=== PATIENT | female | born 1960 | race American Indian/Alaskan Native ===

== ENCOUNTER 2020-05-25 10:34 | Outpatient (REF) | payer OTHER, SELFPAY ==
[2020-05-25 12:33] LABS: MANUAL DIFF FLAG NO
[2020-05-25 12:41] LABS: Basophils Percent Auto 0.5 % (0-2); Hemoglobin 13.6 g/dl (12.0-16.0); Imm Gran Abs Auto 0.01 X10*3/uL (0.00-0.03); Imm Gran Pct Auto 0.3 % (0.0-0.4); Lymphocytes Absolute Auto 0.9 X10*3/uL (1.2-4.9); Lymphocytes Percent Auto 22.2 % (20-40); Mean Corpuscular HGB Conc 31.6 g/dl (31.0-35.0); Mean Corpuscular Hemoglobin 29.4 pg (27.0-33.0); Mean Corpuscular Volume 92.9 fL (80-98); Mean Platelet Volume 11.3 fL (9.4-12.3); Monocytes Absolute Auto 0.3 X10*3/uL (0.1-1.2); Monocytes Percent Auto 7.5 % (2-11); Neutrophils Absolute Auto 2.7 X10*3/uL (2.0-8.3); Neutrophils Percent Auto 68.5 % (45-73); Platelet Count 209 X10*3/uL (160-400); Red Blood Count 4.63 X10*6/uL (4.20-5.50); White Blood Count 3.9 X10*3/uL (4.8-10.8)
[2020-05-25 13:16] LABS: Anion Gap 16 (12-20); Blood Urea Nitrogen 10 mg/dL (9-16); Calcium 9.4 mg/dL (8.4-10.2); Carbon Dioxide 26 mmol/L (22-29); Chloride 102 mmol/L (96-108); Estimated Glomerular Filt Rate > 60; Glucose Random 138 mg/dL (60-115); Iron 90 mcg/dL (30-160); Percent Iron Saturation 27 % (15-50); Potassium 3.9 mmol/l (3.3-5.1); Sodium 140 mmol/L (135-145); Total Iron Binding Capacity 328 mcg/dL (228-428); Unsaturated Iron Binding 238 ug/dL
== END 2020-05-25 10:35 | disposition home or self-care (01) ==
LOC: HO.LAB 10:34
PROVIDERS: PCP Internal Medicine; Visit Provider Physician Assistant
DX: R53.83 Other fatigue (principal); E11.9 Type 2 diabetes mellitus without complications
CPT/HCPCS: 36415; 80048; 83540; 84443; 85025

== ENCOUNTER → 2020-07-13 13:19 | Outpatient (BNVA) | payer OTHER, SELFPAY | PROVIDERS: PCP Internal Medicine; Referring Provider Internal Medicine; Visit Provider Nurse Practitioner Gerontology | DX: Z13.89 Encounter for screening for other disorder (principal) | CPT/HCPCS: Q3014 ==

== ENCOUNTER 2020-09-29 09:34 | Outpatient (REF) | payer OTHER, SELFPAY ==
[2020-09-29 10:18] LABS: MANUAL DIFF FLAG NO
[2020-09-29 10:21] LABS: Basophils Percent Auto 0.7 % (0-2); Eosinophils Percent Auto 0.9 % (0-4); Hematocrit 43.3 % (37-47); Hemoglobin 13.8 g/dl (12.0-16.0); Imm Gran Abs Auto 0.01 X10*3/uL (0.00-0.03); Imm Gran Pct Auto 0.2 % (0.0-0.4); Lymphocytes Absolute Auto 1.3 X10*3/uL (1.2-4.9); Lymphocytes Percent Auto 29.8 % (20-40); Mean Corpuscular HGB Conc 31.9 g/dl (31.0-35.0); Mean Corpuscular Hemoglobin 28.9 pg (27.0-33.0); Mean Corpuscular Volume 90.8 fL (80-98); Mean Platelet Volume 10.8 fL (9.4-12.3); Monocytes Absolute Auto 0.3 X10*3/uL (0.1-1.2); Monocytes Percent Auto 7.2 % (2-11); Neutrophils Absolute Auto 2.7 X10*3/uL (2.0-8.3); Neutrophils Percent Auto 61.2 % (45-73); Platelet Count 202 X10*3/uL (160-400); Red Blood Count 4.77 X10*6/uL (4.20-5.50); Red Cell Distribution Width 13.2 % (11.0-16.0); White Blood Count 4.5 X10*3/uL (4.8-10.8)
[2020-09-29 10:43] LABS: Estimated Average Glucose 177 mg/dL; Hemoglobin A1c % 7.8 %
[2020-09-29 10:59] LABS: Alanine Aminotransferase 25 U/L (0-31); Albumin Level 4.5 g/dL (3.5-5.0); Alkaline Phosphatase 91 U/L (39-117); Anion Gap 12 (12-20); Aspartate Amino Transferase 27 U/L (5-31); Bilirubin Total 0.6 mg/dL (0.0-1.0); Blood Urea Nitrogen 12 mg/dL (9-16); Calcium 9.5 mg/dL (8.4-10.2); Carbon Dioxide 29 mmol/L (22-29); Chloride 103 mmol/L (96-108); Cholesterol 179 mg/dL; Estimated Glomerular Filt Rate > 60; Glucose Fasting 149 mg/dL (60-99); HDL Cholesterol 59 mg/dL; LDL Cholesterol Calculated 93 mg/dl; Potassium 3.7 mmol/L (3.3-5.1); Sodium 140 mmol/L (135-145); Total Protein 7.9 g/dL (6.5-8.0); Triglycerides 136 mg/dL
[2020-09-29 11:02] LABS: Creatinine Urine 85.36 mg/dL; Microalbum/Creatinine Ratio Ur 43.3 ug/mg cr
[2020-09-29 11:21] LABS: Vitamin D 25-OH Total 41.4 ng/mL (>30)
== END 2020-09-29 09:35 | disposition home or self-care (01) ==
LOC: HO.LAB 09:34
PROVIDERS: Nurse Practitioner Family; Absent Provider Nurse Practitioner Gerontology; PCP Internal Medicine; Visit Provider Internal Medicine
DX: K58.0 Irritable bowel syndrome with diarrhea (principal); K21.9 Gastro-esophageal reflux disease without esophagitis; K31.84 Gastroparesis; Z79.899 Other long term (current) drug therapy; E78.5 Hyperlipidemia, unspecified; E11.42 Type 2 diabetes mellitus with diabetic polyneuropathy; E55.9 Vitamin D deficiency, unspecified; Z79.4 Long term (current) use of insulin
CPT/HCPCS: 36415; 80053; 80061; 82043; 82306; 83036; 85025; Q3014

== ENCOUNTER → 2020-12-02 12:47 | Outpatient (BNVA) | payer OTHER, SELFPAY | PROVIDERS: PCP Internal Medicine; Visit Provider Nurse Practitioner Gerontology | DX: E11.42 Type 2 diabetes mellitus with diabetic polyneuropathy (principal); E11.29 Type 2 diabetes mellitus with other diabetic kidney complication; R80.9 Proteinuria, unspecified; E78.5 Hyperlipidemia, unspecified; I10 Essential (primary) hypertension; E55.9 Vitamin D deficiency, unspecified; Z79.4 Long term (current) use of insulin | CPT/HCPCS: 82947; 99212 ==

== ENCOUNTER 2020-12-20 11:25 | Outpatient (REF) | payer OTHER, SELFPAY ==
[2020-12-20 13:45] LABS: Free T4 (Free Thyroxine) 0.92 ng/dL (0.71-1.85); Thyroid Stimulating Hormone 2.04 uIU/mL (0.32-4.0)
== END 2020-12-20 11:26 | disposition home or self-care (01) ==
LOC: HO.LAB 11:25
PROVIDERS: PCP Internal Medicine; Visit Provider Nurse Practitioner Gerontology
DX: E11.42 Type 2 diabetes mellitus with diabetic polyneuropathy (principal); Z79.4 Long term (current) use of insulin
CPT/HCPCS: 36415; 84439; 84443

== ENCOUNTER → 2021-03-29 14:42 | Outpatient (BNVA) | payer OTHER, SELFPAY | PROVIDERS: PCP Internal Medicine; Visit Provider Nurse Practitioner | CPT/HCPCS: Q3014 ==

== ENCOUNTER → 2021-05-06 13:00 | Outpatient (BNVA) | payer OTHER, SELFPAY | PROVIDERS: PCP Internal Medicine; Visit Provider Nurse Practitioner Gerontology | DX: E11.42 Type 2 diabetes mellitus with diabetic polyneuropathy (principal); E11.29 Type 2 diabetes mellitus with other diabetic kidney complication; E78.5 Hyperlipidemia, unspecified; E55.9 Vitamin D deficiency, unspecified; I10 Essential (primary) hypertension; R80.9 Proteinuria, unspecified; Z79.4 Long term (current) use of insulin | CPT/HCPCS: 82947; 99212 ==

== ENCOUNTER 2021-05-21 08:26 | Outpatient (REF) | payer OTHER, SELFPAY ==
--- NOTE | ~2021-05-21 | MM_ITS ---
EXAMINATION: MM SCREENING DIGITAL BREAST TOMOSYNTHESIS, BILATERAL CLINICAL INFORMATION: Screening. Asymptomatic. The lifetime risk of breast cancer based on the Tyrer-Cuzick Model is 4%. COMPARISON: Mammography: 04/08/2020, 11/23/2018, 11/22/2017 TECHNIQUE: Digital breast tomosynthesis is performed in both the craniocaudal and mediolateral oblique views along with computer-aided detection (CAD). Synthesized 2D images are generated from the tomosynthesis. FINDINGS: There are scattered areas of fibroglandular density (ACR BI-RADS breast composition Category b). There are no significant masses, abnormal calcifications, or other abnormalities. Parenchymal pattern is similar to prior studies. There are scattered stable asymmetries similar to prior studies. There is stable nodule posterior upper outer left breast, likely intramammary node. There is a stable intramammary node posterior upper outer right breast. The skin contours are smooth. No significant changes. MM/MM tomosynthesis screening BI IMPRESSION: No mammographic evidence of malignancy. ASSESSMENT: BI-RADS 2: Benign RECOMMENDATION: Routine annual mammography screening. This patient's information was entered into a reminder system with a target due date for their next mammogram.
== END 2021-05-21 08:27 | disposition home or self-care (01) ==
LOC: HO.MAMMO 08:26
PROVIDERS: Visit Provider Internal Medicine
DX: Z12.31 Encounter for screening mammogram for malignant neoplasm of breast (principal)
CPT/HCPCS: 77063; 77067

== ENCOUNTER 2021-08-19 12:44 | Outpatient (REF) | payer OTHER, SELFPAY ==
[2021-08-19 13:08] LABS: MANUAL DIFF FLAG NO
[2021-08-19 13:44] LABS: Basophils Percent Auto 0.6 % (0-2); Eosinophils Percent Auto 0.8 % (0-4); Hematocrit 43.7 % (37.0-47.0); Imm Gran Abs Auto 0.01 X10*3/uL (0.00-0.03); Imm Gran Pct Auto 0.2 % (0.0-0.4); Lymphocytes Absolute Auto 1.1 X10*3/uL (1.2-4.9); Lymphocytes Percent Auto 21.1 % (20-40); Mean Corpuscular Volume 90.5 fL (80.0-98.0); Mean Platelet Volume 10.5 fL (9.4-12.3); Monocytes Absolute Auto 0.4 X10*3/uL (0.1-1.2); Monocytes Percent Auto 7.2 % (2-11); Neutrophils Absolute Auto 3.5 x10*3/uL (2.0-8.3); Neutrophils Percent Auto 70.1 % (45-73); Platelet Count 195 X10*3/uL (160-400); Red Blood Count 4.83 X10*6/uL (4.20-5.50); Red Cell Distribution Width 13.2 % (11.0-16.0)
[2021-08-19 13:46] LABS: Estimated Average Glucose 157 mg/dL; Hemoglobin A1c % 7.1 %
[2021-08-19 13:56] LABS: Creatinine Urine 105.19 mg/dL; Microalbum/Creatinine Ratio Ur 21.8 ug/mg cr
[2021-08-19 14:13] LABS: Alanine Aminotransferase 31 U/L (0-31); Albumin Level 4.6 g/dL (3.5-5.0); Alkaline Phosphatase 76 U/L (39-117); Anion Gap 12 (12-20); Aspartate Amino Transferase 29 U/L (5-31); Bilirubin Total 0.6 mg/dL (0.0-1.0); Blood Urea Nitrogen 11 mg/dL (9-16); Carbon Dioxide 27 mmol/L (22-29); Chloride 104 mmol/L (96-108); Cholesterol 159 mg/dL; Estimated Glomerular Filt Rate > 60; Glucose Random 107 mg/dL (60-115); HDL Cholesterol 59 mg/dL; LDL Cholesterol Calculated 85 mg/dl; Sodium 139 mmol/L (135-145); Total Protein 8.2 g/dL (6.5-8.0); Triglycerides 76 mg/dL
[2021-08-19 14:20] LABS: Alanine Aminotransferase 32 U/L (0-31); Albumin Level 4.6 g/dL (3.5-5.0); Alkaline Phosphatase 75 U/L (39-117); Anion Gap 13 (12-20); Aspartate Amino Transferase 30 U/L (5-31); Bilirubin Total 0.6 mg/dL (0.0-1.0); Blood Urea Nitrogen 11 mg/dL (9-16); Calcium 9.9 mg/dL (8.4-10.2); Carbon Dioxide 26 mmol/L (22-29); Chloride 105 mmol/L (96-108); Cholesterol 160 mg/dL; Estimated Glomerular Filt Rate > 60; Glucose Fasting 107 mg/dL (60-99); HDL Cholesterol 59 mg/dL; LDL Cholesterol Calculated 86 mg/dl; Sodium 140 mmol/L (135-145); Total Protein 8.3 g/dL (6.5-8.0); Triglycerides 79 mg/dL
[2021-08-19 14:36] LABS: Free T4 (Free Thyroxine) 0.94 ng/dL (0.71-1.85); Thyroid Stimulating Hormone 1.58 uIU/mL (0.32-4.0); Vitamin D 25-OH Total 41.4 ng/mL (>30)
[2021-08-19 14:41] LABS: Vitamin D 25-OH Total 41.1 ng/mL (>30)
[2021-08-19 15:10] LABS: Folate 19.4 ng/mL (> or = 4.0); Vitamin B12 176 pg/mL (200-900)
[2021-08-20 09:02] LABS: LDL Cholesterol Direct 84 mg/dL (<100)
== END 2021-08-19 12:45 | disposition home or self-care (01) ==
LOC: HO.LAB 12:44
PROVIDERS: PCP Internal Medicine; Visit Provider Nurse Practitioner Gerontology
DX: E11.65 Type 2 diabetes mellitus with hyperglycemia (principal); E55.9 Vitamin D deficiency, unspecified; E78.00 Pure hypercholesterolemia, unspecified; Z79.4 Long term (current) use of insulin
CPT/HCPCS: 36415; 80053; 80061; 82043; 82306; 82607; 82746; 83036; 83721; 84439; 84443; 85025

== ENCOUNTER → 2021-09-26 15:45 | Outpatient (BNVA) | payer OTHER, SELFPAY | PROVIDERS: PCP Internal Medicine; Referring Provider Internal Medicine; Visit Provider Nurse Practitioner | DX: K21.9 Gastro-esophageal reflux disease without esophagitis (principal); K58.0 Irritable bowel syndrome with diarrhea; K31.84 Gastroparesis; Z79.899 Other long term (current) drug therapy | CPT/HCPCS: 99212 ==

== ENCOUNTER → 2021-10-17 15:25 | Outpatient (BNVA) | payer OTHER, SELFPAY | PROVIDERS: PCP Internal Medicine; Referring Provider Internal Medicine; Visit Provider Nurse Practitioner | DX: K58.0 Irritable bowel syndrome with diarrhea (principal); K21.9 Gastro-esophageal reflux disease without esophagitis; K31.84 Gastroparesis; Z79.899 Other long term (current) drug therapy | CPT/HCPCS: 99212 ==

== ENCOUNTER → 2021-10-21 14:35 | Outpatient (BNVA) | payer OTHER, SELFPAY | PROVIDERS: PCP Internal Medicine; Visit Provider Nurse Practitioner Gerontology | DX: E11.42 Type 2 diabetes mellitus with diabetic polyneuropathy (principal); Z79.4 Long term (current) use of insulin ==

== ENCOUNTER → 2021-11-02 08:00 | Outpatient (BNVA) | payer OTHER, SELFPAY | PROVIDERS: PCP Internal Medicine; Visit Provider Nurse Practitioner Gerontology | DX: E11.42 Type 2 diabetes mellitus with diabetic polyneuropathy (principal); E11.29 Type 2 diabetes mellitus with other diabetic kidney complication; E55.9 Vitamin D deficiency, unspecified; E53.8 Deficiency of other specified B group vitamins; E78.5 Hyperlipidemia, unspecified; R80.9 Proteinuria, unspecified; I10 Essential (primary) hypertension; Z79.4 Long term (current) use of insulin | CPT/HCPCS: 82947; 99212 ==

== ENCOUNTER 2021-11-02 16:28 | Outpatient (RCR) | payer OTHER, SELFPAY ==
--- NOTE | 2021-11-02 17:54 | MHC.PT.EP ---
[facility] [place] Office [place] Office [place] Office [address] Steff Rodas [address] [phone] F: [phone] F: [phone] F: [phone] F: [phone] Physical Therapy Plan of Care Date of Evaluation: Date of Surgery: N/A Diagnosis: dorsalgia Assessment: pt presents to physical therapy with pain, decreased range of motion, decreased strength, impaired functional mobility, impaired postural awareness, and gait deviations. pt is a good candidate for skilled PT due to age, potential remediation of impairments, typical disease/condition progression and prognosis, comorbidities, and motivation. pt would benefit from tailored strengthening and stretching exercise program, functional training, gait training, postural re-training, neuromuscular re-education, modalities as needed for pain, equipment safety demonstration. Frequency and Duration: The patient will be seen 2x/wk for 4 wks Short Term Goals: pt will be I w/ HEP to promote self-management of condition. pt will demo proper sitting posture w/ lumbar roll to promote neutral spine w/ seated ADLs and work tasks. Tension Worker Goals: pt will report a statistically significant improvement in self-reported outcome measure, Rebeca, to promote self-management of condition. pt will demo proper lifting mechanics for 25# object from floor to chest height w/ no verbal cueing to promote neutral spine w/ electronic wirer. Treatment Plan: Modalities to reduce pain, spasms and effusion. Manual therapy to restore motion and function. Therapeutic exercise to improve strength and flexibility. Neuromuscular re-education for posture and balance. Therapeutic activities to return to functional activities of daily living. Electronically signed by: Jeanne Sanchez PT, DPT Please sign and return to therapist. Thank you for your referral.
--- NOTE | 2021-11-29 11:29 | MHC.PT.DC ---
[facility] [place] Office [place] Office [place] Office [address] Steff Rodas [address] [phone] F: [phone] F: [phone] F: [phone] F: [phone] Physical Therapy Discharge Report Diagnosis: dorsalgia Date of Surgery: N/A Date of Evaluation: 11/02/21 Date of Discharge: 11/29/21 Treatments to Date: 1 Cancellations to Date: 2 No Shows to Date: 2 Discharge Status: Visit Non-compliance Discharge Summary: The patient has no showed and cancelled all her scheduled appointments after her initial evaluation. She is discharged from this physical therapy plan for non-compliance. Electronically signed by: Jeanne Sanchez PT, DPT Please sign and return to therapist. Thank you for your referral.
== END 2021-11-29 11:29 | disposition home or self-care (01) ==
LOC: HO.PT 16:28
PROVIDERS: PCP Internal Medicine; Visit Provider Nurse Practitioner Family
DX: M54.9 Dorsalgia, unspecified (principal)
CPT/HCPCS: 97110; 97162

== ENCOUNTER 2022-03-14 10:10 | Outpatient (REF) | payer OTHER, SELFPAY ==
--- NOTE | 2022-03-14 10:22 | ECG_ITS ---
Test Reason : preop Blood Pressure : / mmHG Vent. Rate : 065 BPM Atrial Rate : 065 BPM P-R Int : 150 ms QRS Dur : 082 ms QT Int : 406 ms P-R-T Axes : 030 005 004 degrees QTc Int : 422 ms Normal sinus rhythm ST & T wave abnormality, consider anterior ischemia Abnormal ECG When compared with ECG of 10-MAR-2019 12:45, No significant change was found Referred By: Jess Garza Electronically Signed By:SUZANNA VILLEDA
[2022-03-14 10:28] LABS: MANUAL DIFF FLAG NO
[2022-03-14 11:18] LABS: Basophils Percent Auto 0.5 % (0-2); Hematocrit 41.8 % (37.0-47.0); Hemoglobin 13.4 g/dl (12.0-16.0); Imm Gran Abs Auto 0.01 X10*3/uL (0.00-0.03); Imm Gran Pct Auto 0.3 % (0.0-0.4); Lymphocytes Absolute Auto 1.1 X10*3/uL (1.2-4.9); Lymphocytes Percent Auto 27.4 % (20-40); Mean Corpuscular HGB Conc 32.1 g/dl (31.0-35.0); Mean Corpuscular Hemoglobin 28.9 pg (27.0-33.0); Mean Corpuscular Volume 90.1 fL (80.0-98.0); Mean Platelet Volume 10.5 fL (9.4-12.3); Monocytes Absolute Auto 0.4 X10*3/uL (0.1-1.2); Monocytes Percent Auto 9.1 % (2-11); Neutrophils Absolute Auto 2.4 x10*3/uL (2.0-8.3); Neutrophils Percent Auto 61.7 % (45-73); Platelet Count 202 X10*3/uL (160-400); Red Blood Count 4.64 X10*6/uL (4.20-5.50); Red Cell Distribution Width 13.2 % (11.0-16.0); White Blood Count 3.9 X10*3/uL (4.8-10.8)
[2022-03-14 12:34] LABS: Vitamin D 25-OH Total 32.5 ng/mL (>30)
[2022-03-14 12:45] LABS: Alanine Aminotransferase 24 U/L (0-31); Albumin Level 4.5 g/dL (3.5-5.0); Alkaline Phosphatase 78 U/L (39-117); Anion Gap 17 (12-20); Aspartate Amino Transferase 25 U/L (5-31); Bilirubin Total 0.4 mg/dL (0.0-1.0); Blood Urea Nitrogen 14 mg/dL (9-16); Calcium 9.7 mg/dL (8.4-10.2); Carbon Dioxide 25 mmol/L (22-29); Chloride 106 mmol/L (96-108); Cholesterol 147 mg/dL; Estimated Glomerular Filt Rate > 60; Glucose Fasting 159 mg/dL (60-99); HDL Cholesterol 63 mg/dL; LDL Cholesterol Calculated 66 mg/dl; Potassium 4.2 mmol/L (3.3-5.1); Sodium 144 mmol/L (135-145); Triglycerides 94 mg/dL
[2022-03-14 13:22] LABS: Folate 7.6 ng/mL (> or = 4.0); Vitamin B12 291 pg/mL (200-900)
== END 2022-03-14 10:11 | disposition home or self-care (01) ==
LOC: HO.LAB 10:10
PROVIDERS: Absent Provider Nurse Practitioner Family; PCP Internal Medicine; Visit Provider Internal Medicine
DX: Z01.818 Encounter for other preprocedural examination (principal); D64.9 Anemia, unspecified; E53.8 Deficiency of other specified B group vitamins; E11.65 Type 2 diabetes mellitus with hyperglycemia; E78.5 Hyperlipidemia, unspecified; E55.9 Vitamin D deficiency, unspecified; Z79.4 Long term (current) use of insulin
CPT/HCPCS: 36415; 80053; 80061; 82306; 82607; 82746; 85025; 85027; 93005

== ENCOUNTER → 2022-05-09 12:02 | Outpatient (BNVA) | payer OTHER, SELFPAY | PROVIDERS: PCP Internal Medicine; Visit Provider Nurse Practitioner | DX: K58.0 Irritable bowel syndrome with diarrhea (principal); K21.9 Gastro-esophageal reflux disease without esophagitis; K31.84 Gastroparesis | CPT/HCPCS: 99212 ==

== ENCOUNTER 2022-05-29 16:11 | Outpatient (REF) | payer OTHER, SELFPAY ==
--- NOTE | ~2022-05-29 | MM_ITS ---
EXAMINATION: MM SCREENING DIGITAL BREAST TOMOSYNTHESIS, BILATERAL CLINICAL INFORMATION: Screening. Asymptomatic. COMPARISON: Mammography: 05/21/2021, 04/08/2020, 11/23/2018 TECHNIQUE: Digital breast tomosynthesis is performed in both the craniocaudal and mediolateral oblique views along with computer-aided detection (CAD). Synthesized 2D images are generated from the tomosynthesis. FINDINGS: There are scattered areas of fibroglandular density (ACR BI-RADS breast composition Category b). There are no significant masses, abnormal calcifications, or other abnormalities. Parenchymal pattern is similar to prior studies. Again, there are intramammary nodes again seen posterior upper outer left breast and posterior upper outer right breast. There is no developing density or architectural abnormality. Scattered benign round and coarse calcifications are again seen. The axilla and skin contours are unremarkable. MM/MM tomosynthesis screening BI IMPRESSION: No mammographic evidence of malignancy. ASSESSMENT: BI-RADS 2: Benign RECOMMENDATION: Routine annual mammography screening. This patient's information was entered into a reminder system with a target due date for their next mammogram.
== END 2022-05-29 16:12 | disposition home or self-care (01) ==
LOC: HO.MAMMO 16:11
PROVIDERS: PCP Internal Medicine; Visit Provider Internal Medicine
DX: Z12.31 Encounter for screening mammogram for malignant neoplasm of breast (principal)
CPT/HCPCS: 77063; 77067

== ENCOUNTER → 2022-08-15 08:43 | Outpatient (BNVA) | payer OTHER, SELFPAY | PROVIDERS: PCP Internal Medicine; Visit Provider Psychiatry & Neurology Neurology | DX: R41.3 Other amnesia (principal); G47.10 Hypersomnia, unspecified; G47.00 Insomnia, unspecified | CPT/HCPCS: 99202 ==

== ENCOUNTER 2022-09-01 14:53 | Outpatient (REF) | payer OTHER, SELFPAY ==
--- NOTE | ~2022-09-01 | MR_ITS ---
EXAMINATION: MR BRAIN WITHOUT CONTRAST CLINICAL INFORMATION: Other amnesia. COMPARISON: Brain MRI November 10, 2018. TECHNIQUE: Multiplanar, multisequence imaging of the brain was performed without intravenous contrast. FINDINGS: There is no acute infarction, mass, hemorrhage, or extra-axial collection. The ventricles, sulci, and basilar cisterns are normal in size and configuration. Mild small and patchy foci of T2/FLAIR hyperintensity are seen throughout the bilateral cerebral white matter, unchanged compared with 2019. The ventricles and sulci are commensurate. No unexpected or disproportionate volume loss is seen. The flow voids of the major intracranial arteries appear intact. The bones and extracranial soft tissues are unremarkable. MR/MR head/brain wo con IMPRESSION: No acute infarct, mass lesion, intracranial hemorrhage, or evidence of hydrocephalus. Mild chronic microangiopathy.
== END 2022-09-01 14:54 | disposition home or self-care (01) ==
LOC: HO.MRI 14:53
PROVIDERS: PCP Internal Medicine; Visit Provider Psychiatry & Neurology Neurology
DX: R41.3 Other amnesia (principal)
CPT/HCPCS: 70551

== ENCOUNTER → 2022-09-07 12:51 | Outpatient (REF) | payer OTHER, SELFPAY | LOC: HO.SL 12:51 | PROVIDERS: PCP Internal Medicine; Visit Provider Psychiatry & Neurology Neurology | DX: G47.00 Insomnia, unspecified (principal); G47.10 Hypersomnia, unspecified; R06.83 Snoring | CPT/HCPCS: 95806 ==

== ENCOUNTER → 2022-10-13 14:15 | Outpatient (BNVA) | payer OTHER, SELFPAY | PROVIDERS: PCP Internal Medicine; Visit Provider Nurse Practitioner Family | DX: G47.10 Hypersomnia, unspecified (principal); G47.00 Insomnia, unspecified; R41.3 Other amnesia | CPT/HCPCS: 99212 ==

== ENCOUNTER → 2022-11-13 21:17 | Outpatient (REF) | payer OTHER, SELFPAY | LOC: HO.SL 21:17 | PROVIDERS: PCP Internal Medicine; Visit Provider Nurse Practitioner Family | DX: G47.33 Obstructive sleep apnea (adult) (pediatric) (principal) | CPT/HCPCS: 95810 ==

== ENCOUNTER → 2022-11-30 13:39 | Outpatient (BNVA) | payer OTHER, SELFPAY | PROVIDERS: PCP Internal Medicine; Visit Provider Nurse Practitioner | DX: K21.9 Gastro-esophageal reflux disease without esophagitis (principal); K58.0 Irritable bowel syndrome with diarrhea; K31.84 Gastroparesis; Z79.899 Other long term (current) drug therapy | CPT/HCPCS: 99212 ==

== ENCOUNTER 2023-01-02 08:30 | Outpatient (REF) | payer OTHER, SELFPAY ==
--- NOTE | ~2023-01-02 | XR_ITS ---
EXAMINATION: XR LUMBOSACRAL SPINE CLINICAL INFORMATION: Reason for Exam M54.31 - Sciatica, right side COMPARISON: Lumbar spine radiographs 11/18/2015 TECHNIQUE: 3 views of the lumbar spine FINDINGS: 5 nonrib-bearing lumbar-type vertebral bodies. Vertebral body heights are maintained. Grade 1 retrolisthesis of L3 on L4. Moderate multilevel degenerative disc disease with loss of disc space height and facet arthropathy progressed from prior. Atherosclerosis of the abdominal aorta. Right upper quadrant cholecystectomy clips. XR/XR lumbar spine 2-3V IMPRESSION: 1. Moderate multilevel degenerative disc disease with loss of disc space height and facet arthropathy progressed from prior. 2. Grade 1 retrolisthesis of L3 on L4.
[2023-01-02 09:44] LABS: Alanine Aminotransferase 50 U/L (0-31); Albumin Level 4.5 g/dL (3.5-5.0); Alkaline Phosphatase 65 U/L (39-117); Anion Gap 15 (12-20); Aspartate Amino Transferase 64 U/L (5-31); Bilirubin Total 0.5 mg/dL (0.0-1.0); Blood Urea Nitrogen 11 mg/dL (9-16); Calcium 10.2 mg/dL (8.4-10.2); Carbon Dioxide 30 mmol/L (22-29); Chloride 101 mmol/L (96-108); Cholesterol 202 mg/dL; Estimated Glomerular Filt Rate > 60; Glucose Fasting 155 mg/dL (60-99); HDL Cholesterol 57 mg/dL; LDL Cholesterol Calculated 117 mg/dl; Potassium 3.7 mmol/L (3.3-5.1); Sodium 142 mmol/L (135-145); Total Protein 8.4 g/dL (6.5-8.0); Triglycerides 141 mg/dL
[2023-01-02 09:47] LABS: Creatinine Urine 91.75 mg/dL; Microalbum/Creatinine Ratio Ur 16.3 ug/mg cr
[2023-01-02 10:02] LABS: Vitamin D 25-OH Total 48.7 ng/mL (>30)
[2023-01-02 10:07] LABS: Folate 14.8 ng/mL (> or = 4.0); Vitamin B12 511 pg/mL (200-900)
== END 2023-01-02 08:31 | disposition home or self-care (01) ==
LOC: HO.LAB 08:30
PROVIDERS: PCP Internal Medicine; Visit Provider Internal Medicine
DX: E55.9 Vitamin D deficiency, unspecified (principal); E11.65 Type 2 diabetes mellitus with hyperglycemia; E78.5 Hyperlipidemia, unspecified; E53.8 Deficiency of other specified B group vitamins; M54.31 Sciatica, right side; Z79.4 Long term (current) use of insulin
CPT/HCPCS: 36415; 72100; 80053; 80061; 82043; 82306; 82607; 82746

== ENCOUNTER 2023-04-12 10:09 | Outpatient (REF) | payer OTHER, SELFPAY ==
[2023-04-12 12:53] LABS: Estimated Average Glucose 160 mg/dL; Hemoglobin A1c % 7.2 % (<6.0)
[2023-04-12 13:23] LABS: Gamma Glutamyl Transpeptidase 59 U/L (7-33)
[2023-04-12 13:31] LABS: Ferritin 105 ng/mL (10-250)
[2023-04-13 03:24] LABS: HBS Num1 0.39 mIU/mL (0-7.99); HBc Num1 0.15 S/CO (0.00-0.79); HBsAGNum1 0.43 S/CO (0.00-0.99); HIV AB/AG Nonreactive (Nonreactive); HIV Num 1 0.06 S/CO (0.00-0.99); Hepatitis A Antibody IgM 0.18 Index (0-0.79); Hepatitis B Core Antibody Nonreactive (Nonreactive); Hepatitis B Surface Antigen Negative (Negative); ~HepC Num1 0.31 S/CO (0.00-0.79); ~Hepatitis A Antibody IgM Nonreactive (Nonreactive); ~Hepatitis B Surface Antibody NONREACTIVE (Nonreactive); ~Hepatitis C Antibody Nonreactive (Nonreactive)
[2023-04-17 08:34] LABS: Anti Nuclear Antibody Screen NEGATIVE (NEGATIVE)
[2023-04-17 12:04] LABS: Alpha Fetoprotein 4.9 ng/mL
[2023-04-17 12:34] LABS: Mitochondrial Antibodies NEGATIVE (NEGATIVE)
[2023-04-18 13:38] LABS: Smooth Muscle Antibody <20 U (<20)
== END 2023-04-12 10:10 | disposition home or self-care (01) ==
LOC: HO.LAB 10:09
PROVIDERS: PCP Internal Medicine; Visit Provider Nurse Practitioner
DX: Z11.4 Encounter for screening for human immunodeficiency virus [HIV] (principal); K21.9 Gastro-esophageal reflux disease without esophagitis; K31.84 Gastroparesis; K58.0 Irritable bowel syndrome with diarrhea; R74.01 Elevation of levels of liver transaminase levels; E11.9 Type 2 diabetes mellitus without complications
CPT/HCPCS: 36415; 82105; 82728; 82977; 83036; 86015; 86038; 86381; 86704; 86706; 86709; 86803; 87340; 87389; 99212

== ENCOUNTER 2023-04-12 10:09 | Outpatient (AMB) | payer OTHER, SELFPAY ==
--- NOTE | 2023-04-12 10:29 | MHC.OFFVIS ---
Intake Vital Signs 04/12/23 10:44 Height 5 ft 4 in Weight 156 lb 8.451 oz BMI 26.9 BP 120/62 Blood Pressure Location Rt brachial Position Sitting Intake Visit Reasons: 8 week follow up PT missed last appt in January Intake Note: Patient presents to in office visit today in follow up of IBS. CC: Patient reports she verónica has abdominal pain, GERD, constipation, and nausea. Denies any new GI symptom today. Allergies amoxicillin Allergy (Unknown, Verified 04/12/23 10:48) pruritus penicillin G Allergy (Unknown, Verified 04/12/23 10:48) pruritis duloxetine [From Cymbalta] Adverse Reaction (Intermediate, Verified 04/12/23 10:48) palpitations and sob dulaglutide [Trulicity] Adverse Reaction (Unknown, Verified 04/12/23 10:48) abdominal pain HPI 8 week follow up PT missed last appt in January HPI Details Assessment & Plan (1) Irritable bowel syndrome with diarrhea: Comment: diarrhea more dominant, but at times becomes constipated, Pattern varies. Will trial Senna prn constipation and daily fiber supplement. Bentyl on diarrhea/ cramping days. Has an element of post cholecystectomy syndrome Code(s): K58.0 - Irritable bowel syndrome with diarrhea Plan: Citizen [place] #Edyta Live She received the bentyl and taking 20mg qid the pain was improved and has moved to the left side but still under the ribcage. The pain was gone for a bit, but started returning. I think we will continue this and see if the bowels can work itself out rather than initiate anything new just now. She has occasional CIC but the bentyl has not changed this. She continues on her prononix qam and famotidine qhs. ROV 8 weeks. (2) GERD (gastroesophageal reflux disease): Code(s): K21.9 - Gastro-esophageal reflux disease without esophagitis Qualifiers: Esophagitis presence: without esophagitis Qualified Code(s): K21.9 - Gastro-esophageal reflux disease without esophagitis (3) Gastroparesis: Code(s): K31.84 - Gastroparesis Medications: Discontinued cyclobenzaprine Discontinued Reas on: Patient no lo nger taking 10 mg PO BEDTIME 14 tabs 0RF TODAYS VISIT Citizen [place] #[id number] She continues to have diarrhea that is watery with movements 3-6 times a day. This is most days, on the days that she does not have watery movements stool is soft at best. She is not having any constipation. She continues on her Reglan 10 mg 4 times a day, along with her pantoprazole 40 mg once a day and famotidine 40 mg at night. To date she has never been controlled on either sucralfate or dicyclomine. She is status post cholecystectomy and I think we need to move her on since Viberzi is contraindicated we will start her on Lotronex 0.5 and titrate. We could also consider imipramine depending on her response. She says ?Dr. Pagan told me there is a problem my liver and you would work on it. ? I am not sure what she means but it does appear that she has elevated liver enzymes and she isn't diabetic. She says she has gained 10 lb recently. I will knee she the standard workup for GO including all of the relevant blood work and ultrasound with elastography. Return office visit in 4 weeks. [facility] Medical History Insomnia Snoring Hypersomnia Urge urinary incontinence Anxiety and depression Obesity (BMI 30-39.9) Type 2 diabetes mellitus with hyperglycemia Fibromyalgia History of herniated intervertebral disc History of TIA (transient ischemic attack) Osteopenia Allergic rhinitis Migraine aura without headache Osteoarthritis Asthma Type 2 diabetes mellitus with diabetic polyneuropathy Hyperlipidemia LDL goal <70 Vitamin D insufficiency Hypertension Surgical History History of carpal tunnel surgery History of cholecystectomy History of cervical biopsy H/O colonoscopy History of bilateral tubal ligation History of partial hysterectomy History of bladder suspension procedure History of appendectomy Family History Father Kidney failure Diabetes CVD (cardiovascular disease) Hypertension Mother Diabetes Hypertension Social History Housing: House Alcohol intake: never Patient Tobacco Use Status: Never used Tobacco e-Cigarette/Vaping Use: Never Used Second Hand Smoke Exposure: No service: No Current occupational status: retired Cognitive needs: No Hearing needs: No Vision needs: No Review of Systems Const Denies fatigue, Denies fever(s), Denies night sweats, Denies poor appetite and Denies weight loss ENT Reports Normal hearing present, Denies dental pain, Denies dysphagia, Denies hearing loss, Denies mouth pain, Denies odynophagia, Denies throat swelling, Denies tongue swelling and Reports other (Dentition adequate) Card Reports no additional complaints Resp Reports no additional complaints GI Denies abdominal pain, Denies melena, Reports bloating, Denies hematochezia, Denies constipation, Denies GI cramping, Denies dysphagia, Denies excessive flatus, Reports early satiety, Reports heartburn, Reports diarrhea, Denies nausea, Denies odynophagia, Denies vomiting and Denies hematemesis Skin/Breast Denies pruritus, Denies lesions, Denies rash and Denies jaundice Neuro Reports Normal hearing present and Denies Abnormal speech present Endo Denies fatigue Aller/Immun Denies throat swelling and Denies tongue swelling Physical Exam Vital Signs: Last Vital Signs BP 120/62 04/12/23 10:44 BMI result Body Mass Index 26.9 Const General: cooperative, no acute distress, well developed and well groomed Nutritional Appearance: average body habitus and well nourished Orientation/consciousness: oriented to person, oriented to place and oriented to time Limitations: language barrier and ambulation with cane HEENT Head: Yes normocephalic and Yes atraumatic Eyes General: appearance normal, both eyes and all related structures Pupils: Equal, round and reactive pupils present Neck Neck: Yes normal visual inspection and Yes no lymphadenopathy Thyroid: Thyroid normal Resp Effort & Inspection: normal respiratory effort and able to speak in complete sentences Auscultation: clear to auscultation bilaterally Cardio Rate: regular rate Rhythm: regular rhythm Heart sounds: Normal, physiologic split S2 sound present Peripheral pulses: radial pulses present and posterior tibial pulses present GI Inspection: No distended and No Abdominal panniculus present Palpation (GI): Soft to palpation, nontender, no guarding, not rigid and No hepatosplenomegaly present Percussion: Yes normal to percussion Auscultation: normal bowel sounds Rectal Exam - Female: deferred Skin General skin exam: no rashes or lesions noted, turgor normal, skin not dry, no jaundice, No spider nevi and no striae Rashes: no rashes Nails: normal Neuro General: oriented to person, oriented to place and oriented to time Cranial nerves: Yes Equal, round and reactive pupils present and Yes Normal hearing present Speech: No Abnormal speech present Extrem General: Yes normal to inspection, No clubbing, No cyanosis and No edema Psych Appearance: grossly normal and well kempt Mental Status: mental status grossly normal Speech and movement: Normal speech and movement present Affect: normal affect Attitude: cooperative Thought process: Normal thought process present and not confabulating Thought content: Normal thought content present Insight: Limited insight present (Psych) Judgement: Limited judgement present (Psych) Assessment & Plan Assessment & Plan (1) GERD (gastroesophageal reflux disease): Code(s): K21.9 - Gastro-esophageal reflux disease without esophagitis Qualifiers: Esophagitis presence: without esophagitis Qualified Code(s): K21.9 - Gastro-esophageal reflux disease without esophagitis Plan: Citizen [place] #[id number] She continues to have diarrhea that is watery with movements 3-6 times a day. This is most days, on the days that she does not have watery movements stool is soft at best. She is not having any constipation. She continues on her Reglan 10 mg 4 times a day, along with her pantoprazole 40 mg once a day and famotidine 40 mg at night. To date she has never been controlled on either sucralfate or dicyclomine. She is status post cholecystectomy and I think we need to move her on since Viberzi is contraindicated we will start her on Lotronex 0.5 and titrate. We could also consider imipramine depending on her response. She says ?Dr. Pagan told me there is a problem my liver and you would work on it. ? I am not sure what she means but it does appear that she has elevated liver enzymes and she isn't diabetic. She says she has gained 10 lb recently. I will knee she the standard workup for GO including all of the relevant blood work and ultrasound with elastography. Return office visit in 4 weeks. (2) Gastroparesis: Code(s): K31.84 - Gastroparesis (3) Irritable bowel syndrome with diarrhea: Comment: diarrhea more dominant, but at times becomes constipated, Pattern varies. Will trial Senna prn constipation and daily fiber supplement. Bentyl on diarrhea/ cramping days. Has an element of post cholecystectomy syndrome Code(s): K58.0 - Irritable bowel syndrome with diarrhea (4) Transaminitis: Code(s): R74.01 - Elevation of levels of liver transaminase levels (5) Diabetes mellitus: Code(s): E11.9 - Type 2 diabetes mellitus without complications Orders: Orders Alpha Fetoprotein Today R74.01 - Elevation of levels of liver transaminase levels YENI Reflex Titer and Pattern Today R74.01 - Elevation of levels of liver transaminase levels Ferritin Today R74.01 - Elevation of levels of liver transaminase levels Smooth Muscle Antibody Today R74.01 - Elevation of levels of liver transaminase levels US abdomen comp w elastography Today R74.01 - Elevation of levels of liver transaminase levels Hepatitis A,B,C Profile Today R74.01 - Elevation of levels of liver transaminase levels HIV Ab/Ag Today R74.01 - Elevation of levels of liver transaminase levels Gamma Glutamyl Transpeptidase Today R74.01 - Elevation of levels of liver transaminase levels Mitochondrial Antibody Today R74.01 - Elevation of levels of liver transaminase levels Hemoglobin A1c Today E11.9 - Type 2 diabetes mellitus without complications Medications: New alosetron (Lotronex) 0.5 mg PO BID 60 tabs 6RF K58.0 - Irritable bowel syndrome with diarrhea Refilled metoclopramide HCl 10 mg PO QID 30 days 120 tabs 6RF K31.84 - Gastroparesis pantoprazole 40 mg PO DAILY 90 tabs 1RF K21.9 - Gastro-esophageal reflux disease without esophagitis Coding Level of Care Code Est Pt Level 3 (68290) Diagnoses Gastroesophageal reflux disease without esophagitis K21.9 Esophagitis presence: without esophagitis Gastroparesis K31.84 Irritable bowel syndrome with diarrhea K58.0 Transaminitis R74.01 Diabetes mellitus E11.9
[2023-04-12 10:44] VITALS: BP 120/62; BMI 26.9
== END 2023-04-12 11:15 | disposition home or self-care (01) ==
PROVIDERS: PCP Internal Medicine; Visit Provider Nurse Practitioner
DX: K21.9 Gastro-esophageal reflux disease without esophagitis (principal); K31.84 Gastroparesis; K58.0 Irritable bowel syndrome with diarrhea; R74.01 Elevation of levels of liver transaminase levels; E11.9 Type 2 diabetes mellitus without complications
CPT/HCPCS: 99213

== ENCOUNTER 2023-04-16 09:43 | Outpatient (REF) | payer OTHER, SELFPAY ==
--- NOTE | ~2023-04-16 | US_ITS ---
EXAMINATION: US COMPLETE ABDOMEN WITH LIVER ELASTOGRAPHY CLINICAL INFORMATION: Elevated serum transaminase levels. COMPARISON: CT abdomen and pelvis dated 12/27/2018; abdominal ultrasound dated 11/18/2015. TECHNIQUE: Real-time imaging of the abdominal viscera. Noninvasive ultrasound liver fibrosis assessment is performed using Stevie ElastPQ point quantification shear wave elastography (2D-SWE) with a C5-2 MHz transducer. Multiple elastography samples are obtained. FINDINGS: PANCREAS: Normal. The visualized pancreatic head and body are normal in appearance. The remainder of the pancreas is obscured from visualization by the overlying bowel gas. ABDOMINAL AORTA: The proximal, middle, and distal aortic segments are normal in caliber. INFERIOR VENA CAVA: Visualized portions are normal. LIVER: Normal. The liver demonstrates normal size, contour and normal echogenicity. No focal lesion or intrahepatic biliary duct dilatation. The right lobe measures 13.3 cm in length. The left lobe measures 9.2 cm in length. Portal flow is towards the liver (hepatopetal). Shear wave liver elastography median stiffness is 1.86 m/s (reference: normal median stiffness is 1.3 m/s or less). IQR/median stiffness to assess sampling precision is 0.12 (reference: good quality data set is IQR/median stiffness of 0.15 or less). GALLBLADDER: Surgically absent. COMMON BILE DUCT: Normal in caliber measuring 0.3 cm in diameter. RIGHT KIDNEY: Normal. No hydronephrosis. No renal calculi or focal parenchymal lesions. The kidney measures 12.2 cm in maximum dimension. LEFT KIDNEY: Normal. No hydronephrosis. No renal calculi or focal parenchymal lesions. The kidney measures 12.7 cm in maximum dimension. SPLEEN: Normal. The spleen measures 9.1 cm in maximum dimension. FREE FLUID: None. US/US abdomen comp w elastography IMPRESSION: 1. The gallbladder is surgically absent. 2. Liver elastography: Measurements are suggestive of compensated advanced chronic liver disease but need further test for confirmation. REFERENCE: Society of Radiologists in Ultrasound Liver Stiffness Thresholds (2020): LIVER STIFFNESS THRESHOLDS: *Liver Stiffness equal or less than 1.3 m/s: High probability of being normal. *Liver Stiffness less than 1.7 m/s: In the absence of other known clinical signs, rules out compensated advanced chronic liver disease. *Liver Stiffness 1.7-2.1 m/s: Suggestive of compensated advanced chronic liver disease but need further test for confirmation. *Liver Stiffness over 2.1 m/s: Rules in compensated advanced chronic liver disease. *Liver Stiffness over 2.4 m/s: Suggestive of clinically significant portal hypertension. QUALITY OF DATA SET: *IQR/Median value equal or less than 0.15 implies a quality data set. *IQR/Median value over 0.15 implies a poor quality data set. SIGNIFICANT CHANGE FROM PRIOR EXAM: Significant change if liver stiffness measurement is 10% or greater from prior exam. OTHER CONSIDERATIONS: The stage of liver fibrosis may be overestimated in the setting of acute hepatitis, liver inflammation, elevated liver function tests, hepatic vascular congestion, obstructive cholestasis, non-fasting state, and infiltrative diseases such as amyloidosis and lymphoma. In some patients with NAFLD, the liver stiffness thresholds for compensated advanced chronic liver disease may be lower. In causes other than viral hepatitis and NAFLD, liver stiffness thresholds are not well established.
== END 2023-04-16 09:44 | disposition home or self-care (01) ==
LOC: HO.US 09:43
PROVIDERS: Visit Provider Nurse Practitioner
DX: R74.01 Elevation of levels of liver transaminase levels (principal)
CPT/HCPCS: 76705; 76981

== ENCOUNTER 2023-08-06 13:51 | Outpatient (AMB) | payer OTHER, SELFPAY ==
[2023-08-06 14:04] VITALS: BP 120/60; BMI 26.9
--- NOTE | 2023-08-06 14:04 | A.OFFPC_ITS ---
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 Accompanied by: Self / Same As Patient Allergies amoxicillin Allergy (Unknown, Verified 08/06/23 14:26) pruritus penicillin G Allergy (Unknown, Verified 08/06/23 14:26) pruritis duloxetine [From Cymbalta] Adverse Reaction (Intermediate, Verified 08/06/23 14:26) palpitations and sob dulaglutide [Trulicity] Adverse Reaction (Unknown, Verified 08/06/23 14:26) abdominal pain Medication List - Last Reconciled 08/06/23 by Jess Garza MD [adult diapers As directed] albuterol sulfate 90 mcg/actuation 2 puffs PO Q4-6H PRN alcohol swabs pad topical TID alosetron (Lotronex) 0.5 mg PO BID [bed rail As directed] blood pressure monitor As directed blood sugar diagnostic (FreeStyle Lite Strips) As directed three times a day blood-glucose meter (FreeStyle Lite Meter kit) three times a day cholecalciferol (vitamin D3) 50 mcg PO DAILY 90 days clonazepam 0.5 mg PO DAILY PRN 30 days cyclobenzaprine 5 mg PO TID PRN dapaglifloz propaned-metformin 5-1,000 mg ER (Xigduo XR) 2 tabs (2 x 5-1,000 mg) PO DAILY ezetimibe 10 mg PO DAILY famotidine 40 mg PO BEDTIME [handheld showerhead As directed] hydroxyzine HCl 10 mg PO BEDTIME PRN 10 days lancets (FreeStyle Lancets) As directed three time a day lisinopril-hydrochlorothiazide 20-12.5 mg 1 tab PO DAILY 90 days loratadine 10 mg PO DAILY meloxicam 15 mg PO DAILY 7 days metoclopramide HCl 10 mg PO QID 30 days miscellaneous medical supply 1 ea miscellaneous DAILY [non-slip rug for tub As directed] pantoprazole 40 mg PO DAILY [personal wipes As directed] [raised toilet seat As directed] rosuvastatin 40 mg PO DAILY sertraline 150 mg (1.5 x 100 mg) PO DAILY Shower Chair As directed sitagliptin phosphate (Juluvia) 100 mg PO DAILY trazodone 100 mg PO BEDTIME 90 days underpads (Bed Underpads) As directed walker As directed walker (Ultra-Light Rollator misc) As directed Tobacco use date assessed: 08/06/23 Fall risk assessment: No Falls in past year Last assessed Fall Risk: 08/06/23 Dental Screening Dental Screen Date: 08/06/23 Did you have a dental visit in the last 12 months?: Yes Did you have a dental problem in the last 6 months where you did not have access to dental care?: No Was dental information given to patient?: Patient has dentist HPI HPI Comments History of Present Illness Details This is a 62-year-old female with diabetes mellitus type 2 and mild recurrent major depression that comes for her physical exam. A1c not on goal and I will add Ozempic. Had reaction with Trulicity in which had abdominal pain. Currently he is on metformin and Januvia. Diabetic eye exam was less than a year ago. Depression stable with sertraline and does not have counselor or psychiatrist. No need for Pap smear due to hysterectomy. Last colonoscopy was 2013. Last mammogram was 2021. Complains of diffuse joint pain due to fibromyalgia. [facility] Medical History Insomnia Snoring Hypersomnia Urge urinary incontinence Anxiety and depression Obesity (BMI 30-39.9) Type 2 diabetes mellitus with hyperglycemia Fibromyalgia History of herniated intervertebral disc History of TIA (transient ischemic attack) Osteopenia Allergic rhinitis Migraine aura without headache Osteoarthritis Asthma Type 2 diabetes mellitus with diabetic polyneuropathy Hyperlipidemia LDL goal <70 Vitamin D insufficiency Hypertension Surgical History History of carpal tunnel surgery History of cholecystectomy History of cervical biopsy H/O colonoscopy History of bilateral tubal ligation History of partial hysterectomy History of bladder suspension procedure History of appendectomy Family History Father Kidney failure Diabetes CVD (cardiovascular disease) Hypertension Mother Diabetes Hypertension Social History Housing: House Alcohol intake: never Patient Tobacco Use Status: Never used Tobacco e-Cigarette/Vaping Use: Never Used Second Hand Smoke Exposure: No service: No Current occupational status: retired Cognitive needs: No Hearing needs: No Vision needs: No Questionnaire PHQ-9 Over the last 2 weeks, how often have you been bothered by any of the following problems? 1. Little interest or pleasure in doing things: more than half the days 2. Feeling down, depressed, or hopeless: nearly every day 3. Trouble falling or staying asleep, or sleeping too much: nearly every day 4. Feeling tired or having little energy: more than half the days 5. Poor appetite or overeating: nearly every day 6. Feeling bad about yourself - or that you are a failure or have let yourself or your family down: several days 7. Trouble concentrating on things, such as reading the newspaper or watching television: nearly every day 8. Moving or speaking so slowly that other people could have noticed. Or the opposite - being so fidgety or restless that you have been moving around a lot more than usual: more than half the days 9. Thoughts that you would be better off or of hurting yourself in some way: not at all Total score: 19 Depression Screening Interpretation: Positive (no suicidal thoughts) Depression Screening Follow-up: Existing condition and In treatment Depression Screening Done: Yes 01834 - PHQ-9 Billing: Yes Source: Developed by Drs. Agustin Caraballo, Annabella Dumont, Frank Means and colleagues, with an educational flash from [employer]. Thrive Questionnaire Date Thrive assessed: 08/06/23 I am a: Patient What is your living situation today?: I have a steady place to live Within the past 12 months, did the food you bought not last and you didn't have the money to get more?: Never true Within the past 12 months, did you worry whether your food would run out before you got money to buy more?: Never true Do you have trouble paying for medicines?: No Do you have trouble getting transportation to medical appointments?: No Do you have trouble paying your heating and electricity bill?: No Do you have trouble taking care of your child, family member or friend?: No Do you have trouble with day-to-day activities such as bathing, preparing meals, shopping, managing finances, etc.?: No Are you currently unemployed and looking for a job?: No Are you interested in more education?: No Please select the resources that you would like help with: None Currently or been in a relationship where the following occur: no concerns reported THRIVE Score: 0 AUDIT C Alcohol Use Questionnaire (AUDIT-C) 1. How often do you have a drink containing alcohol?: Never Total Score: 0 AMBROCIO-7 AMB Questionnaire AMBROCIO-7 Date AMBROCIO - 7 assessed: 08/06/23 Feeling nervous, anxious, or on edge: 3 = Nearly every day Not being able to stop or control worryin = Not at all Worrying too much about different things: 1 = Several days Trouble relaxin = Several days Being so restless that it is hard to sit still: 1 = Several days Becoming easily annoyed or irritable: 1 = Several days Feeling afraid as if something awful might happen: 1 = Several days Total AMBROCIO-7 score (0-4 normal; 5-9 mild; 10-14 moderate; 15-21 severe): 8 Source: Developed by Drs. Agustin Caraballo, Annabella Dumont, Frank Means and colleagues, with an educational flash from [employer]. AMBROCIO-7 Assessment Billing AMBROCIO-7 Assessment Tool: AMBROCIO-7 Assessment 14614 Review of Systems Const All systems reviewed & are unremarkable except as noted in HPI and below Eyes Reports no additional complaints, Denies change in vision and Denies other visual disturbances Card Denies chest pain at rest, Denies chest pain with activity, Denies edema, Denies irregular heart rhythm, Denies claudication, Denies dyspnea, Denies dyspnea on exertion, Denies orthopnea, Denies paroxysmal nocturnal dyspnea and Denies slow heart rate Resp Denies cough, Denies dyspnea and Denies dyspnea on exertion GI Denies abdominal pain, Denies change in bowel habits, Denies excessive flatus, Denies nausea and Denies vomiting Denies urinary incontinence, Denies urinary hesitancy and Denies urinary urgency Musc Denies atrophy, Denies deformity and Denies limited range of motion Skin/Breast Denies bleeding lesions, Denies changing lesions and Denies rash Physical exam (Primary Care) Vital Signs: Last Vital Signs BP 120/60 08/06/23 14:04 BMI result Body Mass Index 26.9 Tobacco/Smoking Status: Tobacco use Status Tobacco use date assessed 08/06/23 08/06/23 14:15 Patient Tobacco Use Status Never used Tobacco 08/06/23 14:06 Tobacco use type 03/26/23 11:13 e-Cigarette/Vaping Use Never Used 08/06/23 14:06 PHQ-9: PHQ-9 Score PHQ-9: Total score 19 08/06/23 14:54 Depression Screening Interpretation: Positive (no suicidal thoughts) Depression Screening Follow-up: Existing condition and In treatment Thrive Assessment: Date of Thrive Assessment Date Thrive assessed 08/06/23 08/06/23 14:08 Currently or been in a relationship where the following occur: no concerns reported Const Orientation/consciousness: patient oriented x3 HENMT Head: Yes normal to inspection, Yes normocephalic and Yes atraumatic Ears: external ears normal Eyes General: appearance normal, both eyes and all related structures Eyelids: Yes eyelids normal Conjunctivae: conjunctivae normal Neck Neck: Yes normal visual inspection and Yes supple Resp Effort & Inspection: normal respiratory effort Auscultation: clear to auscultation bilaterally Cardio Jugular venous distension: no JVD Rate: regular rate Rhythm: regular rhythm Heart sounds: S1 normal heart sound present and S2 normal heart sound present GI Inspection: Yes normal to inspection Palpation (GI): Soft to palpation and nontender Auscultation: normal bowel sounds Skin General skin exam: no rashes or lesions noted Neuro General: patient oriented x3 and no focal motor deficits Extrem General: Yes full ROM Psych Appearance: grossly normal Office Procedures Flu Questionnaire Does the patient have a severe egg allergy?: No Does the patient have severe life threatening allergies?: No Does the patient have a fever or illness today?: No Has the patient ever had Guillain-[place] Syndrome?: No Has the patient ever had any past reaction to a flu shot?: No Results AMB Hemoglobin A1c AMB Hemoglobin A1c 8.9 % Last Edit by TEENA Escamilla on 08/06/23 14:1 7 Immunizations flu vacc [id number] 6mos up(PF) 60 mcg(15 mcgx4)/0.5 mL IM syringe Performing Provider: Jess Garza MD Performing Location: [facility] Administered by: TEENA Escamilla on 08/06/23 14:54 Dose Route Admin Location Dispensed Lot Number Expiration Date NDC 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 (2) Diabetes mellitus: Code(s): E11.9 - Type 2 diabetes mellitus without complications Plan: Continue xigduo. Start Ozempic. A1c goal is equal or less than 7%. (3) Mild recurrent major depression: Code(s): F33.0 - Major depressive disorder, recurrent, mild Plan: Continue SSRI. Orders: Orders AMB Hemoglobin A1c Today E11.9 - Type 2 diabetes mellitus without complications Lipid Panel Today E78.5 - Hyperlipidemia, unspecified Vitamin B12 and Folate Today E53.8 - Deficiency of other specified B group vitamins Vitamin D 25-OH Total Today E55.9 - Vitamin D deficiency, unspecified Microalbumin, Random (w Creat) Today E11.9 - Type 2 diabetes mellitus without complications Influenza [id number] Immunization Today Z23 - Encounter for immunization MM screening mammo BI Today Z12.31 - Encounter for screening mammogram for malignant neoplasm of breast Comprehensive [place]. Panel Fast Today E78.5 - Hyperlipidemia, unspecified Referrals Open Access Screening Colonoscopy Referral Z12.11 - Encounter for screening for malignant neoplasm of colon Medications: New semaglutide (Ozempic) for 4 weeks 0.25 mg (0.368 mL) subcut QWEEK 1.472 mL 0RF 28 days E11.9 - Type 2 diabetes mellitus without complications ibuprofen 800 mg PO Q8H PRN 90 tabs 1RF pain 30 days Discontinued meloxicam Discontinued Reason: Patient Completed Course 15 mg PO DAILY 7 days 7 tabs 0RF Coding Level of Care Code Est Pt Prev Care 40-64y(75321) Diagnoses Physical exam Z00.00 Diabetes mellitus E11.9 Mild recurrent major depression F33.0 Additional Codes AMBROCIO-7 Assessment Billing - AMBROCIO-7 Assessment Tool: AMBROCIO-7 Assessment 15246 ([id number]) Time Spent (min) 34
== END 2023-08-06 14:42 | disposition home or self-care (01) ==
PROVIDERS: PCP Internal Medicine; Visit Provider Internal Medicine
DX: Z23 Encounter for immunization (principal); Z00.00 Encounter for general adult medical examination without abnormal findings; E11.9 Type 2 diabetes mellitus without complications; F33.0 Major depressive disorder, recurrent, mild
CPT/HCPCS: 83036; 90471; 90686; 99396

== ENCOUNTER → 2023-08-20 14:15 | Outpatient (BNV) | payer OTHER, SELFPAY | PROVIDERS: PCP Internal Medicine; Visit Provider Radiology Diagnostic Radiology | DX: Z12.31 Encounter for screening mammogram for malignant neoplasm of breast (principal) | CPT/HCPCS: 77063; 77067 ==

== ENCOUNTER 2023-08-20 14:19 | Outpatient (REF) | payer OTHER, SELFPAY | END 2023-08-20 14:20 | disposition home or self-care (01) | LOC: HO.MAMMO 14:19 | PROVIDERS: PCP Internal Medicine; Visit Provider Internal Medicine | DX: Z12.31 Encounter for screening mammogram for malignant neoplasm of breast (principal) | CPT/HCPCS: 77063; 77067 ==

== ENCOUNTER 2023-08-21 10:03 | Outpatient (REF) | payer OTHER, SELFPAY ==
[2023-08-21 11:29] LABS: Alanine Aminotransferase 24 U/L (0-31); Albumin Level 4.4 g/dL (3.5-5.0); Alkaline Phosphatase 65 U/L (39-117); Anion Gap 14 (12-20); Aspartate Amino Transferase 26 U/L (5-31); Bilirubin Total 0.6 mg/dL (0.0-1.0); Blood Urea Nitrogen 11 mg/dL (9-16); Calcium 10.3 mg/dL (8.4-10.2); Carbon Dioxide 31 mmol/L (22-29); Chloride 101 mmol/L (96-108); Cholesterol 122 mg/dL (<200); Estimated Glomerular Filt Rate > 60; Glucose Fasting 119 mg/dL (60-99); HDL Cholesterol 53 mg/dL (>40); LDL Cholesterol Calculated 54 mg/dL (<100); Potassium 3.9 mmol/L (3.3-5.1); Sodium 142 mmol/L (135-145); Total Protein 8.3 g/dL (6.5-8.0); Triglycerides 78 mg/dL (<150)
[2023-08-21 11:44] LABS: Vitamin B12 611 pg/mL (200-900)
[2023-08-21 11:49] LABS: Vitamin D 25-OH Total 47.1 ng/mL (>30)
[2023-08-21 12:08] LABS: Creatinine Urine 125.53 mg/dL; Microalbum/Creatinine Ratio Ur 23.1 ug/mg cr (<30)
== END 2023-08-21 10:04 | disposition home or self-care (01) ==
LOC: HO.LAB 10:03
PROVIDERS: PCP Internal Medicine; Visit Provider Internal Medicine
DX: E11.9 Type 2 diabetes mellitus without complications (principal); E78.5 Hyperlipidemia, unspecified; E53.8 Deficiency of other specified B group vitamins; E55.9 Vitamin D deficiency, unspecified
CPT/HCPCS: 36415; 80053; 80061; 82043; 82306; 82570; 82607; 82746

== ENCOUNTER 2023-08-30 09:37 | Outpatient (AMB) | payer OTHER, SELFPAY ==
--- NOTE | 2023-08-30 09:52 | MHC.OFFVIS ---
Intake Vital Signs 08/30/23 09:58 Height 5 ft 4 in Weight 155 lb 4 oz BMI 26.6 BP 115/72 Blood Pressure Location Lt brachial Position Sitting Pulse 78 Pulse Source Pulse Oximeter Pulse Oximetry (%) 98 Oxygen Delivery Method Room Air Intake Visit Reasons: follow up-CONF Intake Note: Patient presents for f/u. Allergies amoxicillin Allergy (Unknown, Verified 08/30/23 09:56) pruritus penicillin G Allergy (Unknown, Verified 08/30/23 09:56) pruritis duloxetine [From Cymbalta] Adverse Reaction (Intermediate, Verified 08/30/23 09:56) palpitations and sob dulaglutide [Trulicity] Adverse Reaction (Unknown, Verified 08/30/23 09:56) abdominal pain HPI HPI Comments History of Present Illness Details 62 y/o female patient presents for follow up of sleep study. legal collectorInocencia ID #[id number] utilized. The PSG sleep study result was significant for a mild degree of sleep apnea with increased severity in REM sleep. The AHI was 11/hr, REM AHI was 43/hr and oxygen jenaro was 74%. Pt reports she has not received CPAP yet. Pt has chronic sleep issues, excessive daytime sleepiness, difficulty sleeping at night. She reports difficulty falling asleep even with trazodone 100 mg and wakes up 4-5 times at night. She is not physically active. [facility] Medical History Insomnia Snoring Hypersomnia Urge urinary incontinence Anxiety and depression Obesity (BMI 30-39.9) Type 2 diabetes mellitus with hyperglycemia Fibromyalgia History of herniated intervertebral disc History of TIA (transient ischemic attack) Osteopenia Allergic rhinitis Migraine aura without headache Osteoarthritis Asthma Type 2 diabetes mellitus with diabetic polyneuropathy Hyperlipidemia LDL goal <70 Vitamin D insufficiency Hypertension Surgical History History of carpal tunnel surgery History of cholecystectomy History of cervical biopsy H/O colonoscopy History of bilateral tubal ligation History of partial hysterectomy History of bladder suspension procedure History of appendectomy Family History Father Kidney failure Diabetes CVD (cardiovascular disease) Hypertension Mother Diabetes Hypertension Social History Housing: House Alcohol intake: never Patient Tobacco Use Status: Never used Tobacco e-Cigarette/Vaping Use: Never Used Second Hand Smoke Exposure: No service: No Current occupational status: retired Cognitive needs: No Hearing needs: No Vision needs: No Review of Systems Const All systems reviewed & are unremarkable except as noted in HPI and below Physical Exam Vital Signs: Last Vital Signs Pulse 78 08/30/23 09:58 BP 115/72 08/30/23 09:58 Pulse Ox 98 08/30/23 09:58 Oxygen Delivery Method Room Air 08/30/23 09:58 BMI result Body Mass Index 26.6 Const General: cooperative and healthy appearing Nutritional Appearance: overweight Orientation/consciousness: patient oriented x3 Limitations: no limitations HEENT Other: [place] grade 4 Head: Yes normal to inspection Neuro General: patient oriented x3, gait normal, tone normal, moves all extremities and no focal motor deficits Cranial nerves: Yes Bilaterally intact EOM present, Yes Nystagmus not present, Yes Normal facial strength present, Yes Midline tongue present and Yes Symmetric palate elevation present Cognition (Neuro): normal cognition Gait exam (Neuro): Normal gait present Motor exam (neuro): 5/5 motor strength present throughout Deep tendon reflexes (DTR's): Right triceps reflex intensity grade: 1+, Left triceps reflex intensity grade: 1+, Rt Biceps (C5, C6): 1+, Left biceps reflex intensity grade: 1+, Right brachioradialis reflex intensity grade: 1+, Left brachioradialis reflex intensity grade: 1+, Right patellar reflex intensity grade: 1+ and Left patellar reflex intensity grade: 1+ Coordination: [id number] test normal Psych Affect: Depressed mood present Assessment & Plan Assessment & Plan (1) DIANA (obstructive sleep apnea): Comment: Mild degree of sleep apnea with increased severity in REM sleep. The AHI was 11/hr and oxygen jenaro was 74%. Code(s): G47.33 - Obstructive sleep apnea (adult) (pediatric) (2) Insomnia: Code(s): G47.00 - Insomnia, unspecified Plan Advised patient to start APAP [id number]. Stressed compliance, use CPAP nightly and more than 4 hrs. Resend the CPAP order to [facility]. [facility] information given to patient. Sleep hygiene education provided and encouraged patient to increase physical activities. Coding Level of Care Code Est Pt Level 3 (43911) Diagnoses DIANA (obstructive sleep apnea) G47.33 Insomnia G47.00
[2023-08-30 09:58] VITALS: BP 115/72; PULSE 78; O2SAT 98; BMI 26.6
== END 2023-08-30 10:11 | disposition home or self-care (01) ==
PROVIDERS: PCP Internal Medicine; Visit Provider Nurse Practitioner Family
DX: G47.33 Obstructive sleep apnea (adult) (pediatric) (principal); G47.00 Insomnia, unspecified
CPT/HCPCS: 99213

== ENCOUNTER → 2023-08-30 09:37 | Outpatient (BNVA) | payer OTHER, SELFPAY | PROVIDERS: PCP Internal Medicine; Visit Provider Nurse Practitioner Family | DX: G47.33 Obstructive sleep apnea (adult) (pediatric) (principal); G47.00 Insomnia, unspecified | CPT/HCPCS: 99212 ==

== ENCOUNTER 2023-09-12 13:35 | Outpatient (AMB) | payer OTHER, SELFPAY ==
[2023-09-12 13:38] VITALS: BP 155/65; PULSE 73; BMI 26.6
--- NOTE | 2023-09-12 13:38 | MHC.OFFVIS ---
Intake Vital Signs 09/12/23 13:38 Height 5 ft 4 in Weight 154 lb 12.232 oz BMI 26.6 BP 155/65 H Blood Pressure Location Lt brachial Position Sitting Pulse 73 Intake Visit Reasons: follow up Diabetes mellitus/GERD PT N/S 4 appt Intake Note: Patient presents to in office visit today in follow up of IBS. CC: Patient reports she sometimes feels fine and other times she is not. She reports having dark stools, and continues having nausea. Denies any new GI symptom today. 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 Name: [id number] Mc Accompanied by: Self / Same As Patient Allergies amoxicillin Allergy (Unknown, Verified 09/12/23 13:46) pruritus penicillin G Allergy (Unknown, Verified 09/12/23 13:46) pruritis duloxetine [From Cymbalta] Adverse Reaction (Intermediate, Verified 09/12/23 13:46) palpitations and sob dulaglutide [Trulicity] Adverse Reaction (Unknown, Verified 09/12/23 13:46) abdominal pain HPI follow up Diabetes mellitus/GERD PT N/S 4 appt HPI Details Assessment & Plan (1) GERD (gastroesophageal reflux disease): Code(s): K21.9 - Gastro-esophageal reflux disease without esophagitis Qualifiers: Esophagitis presence: without esophagitis Qualified Code(s): K21.9 - Gastro-esophageal reflux disease without esophagitis Plan: [place] #[id number] She continues to have diarrhea that is watery with movements 3-6 times a day. This is most days, on the days that she does not have watery movements stool is soft at best. She is not having any constipation. She continues on her Reglan 10 mg 4 times a day, along with her pantoprazole 40 mg once a day and famotidine 40 mg at night. To date she has never been controlled on either sucralfate or dicyclomine. She is status post cholecystectomy and I think we need to move her on since Viberzi is contraindicated we will start her on Lotronex 0.5 and titrate. We could also consider imipramine depending on her response. She says ?Dr. Pagan told me there is a problem my liver and you would work on it. ? I am not sure what she means but it does appear that she has elevated liver enzymes and she isn't diabetic. She says she has gained 10 lb recently. I will knee she the standard workup for GO including all of the relevant blood work and ultrasound with elastography. Return office visit in 4 weeks. (2) Gastroparesis: Code(s): K31.84 - Gastroparesis (3) Irritable bowel syndrome with diarrhea: Comment: diarrhea more dominant, but at times becomes constipated, Pattern varies. Will trial Senna prn constipation and daily fiber supplement. Bentyl on diarrhea/ cramping days. Has an element of post cholecystectomy syndrome Code(s): K58.0 - Irritable bowel syndrome with diarrhea (4) Transaminitis: Code(s): R74.01 - Elevation of levels of liver transaminase levels (5) Diabetes mellitus: Code(s): E11.9 - Type 2 diabetes mellitus without complications Orders: Orders Alpha Fetoprotein Today R74.01 - Elevation of levels of live r transaminase lev els YENI Reflex Titer a nd Pattern Today R74.01 - Elevation of levels of live r transaminase lev els Ferritin Today R74.01 - Elevation of levels of live r transaminase lev els Smooth Muscle Anti body Today R74.01 - Elevation of levels of live r transaminase lev els US abdomen comp w elastography Today R74.01 - Elevation of levels of live r transaminase lev els Hepatitis A,B,C Pr ofile Today R74.01 - Elevation of levels of live r transaminase lev els HIV Ab/Ag Today R74.01 - Elevation of levels of live r transaminase lev els Gamma Glutamyl Tra nspeptidase Today R74.01 - Elevation of levels of live r transaminase lev els Mitochondrial Anti body Today R74.01 - Elevation of levels of live r transaminase lev els Hemoglobin A1c Today E11.9 - Type 2 adela betes mellitus wit hout complications Medications: New alosetron (Lotrone x) 0.5 mg PO BID 60 tabs 6RF K58.0 - Irritable bowel syndrome wit h diarrhea Refilled metoclopramide HCl 10 mg PO QID 30 d ays 120 tabs 6RF K31.84 - Gastropar esis pantoprazole 40 mg PO DAILY 90 tabs 1RF K21.9 - Gastro-eso phageal reflux dis ease without esoph agitis LABS: Laboratory Tests 04/12/23 04/12/23 08/06/23 11:33 11:33 14:15 Estimated GFR Hgb A1c (Clinic) 8.9 H Total Bilirubin AST ALT Alkaline Phosphata se YENI Screen NEGATIVE Anti-Mitochondrial Ab NEGATIVE Anti-Smooth Muscle Ab <20 Hepatitis A IgM Ab Nonreactive Hep Bs Antigen Negative Hep Bs Antibody NONREACTIVE Hep B Core Total A b Nonreactive Hepatitis C Ab (EI A) Nonreactive HIV 1&2 Ab/P24 Ag 4thGn Nonreactive 08/21/23 10:16 Estimated GFR > 60 Hgb A1c (Clinic) Total Bilirubin 0.6 AST 26 ALT 24 Alkaline Phosphata se 65 YENI Screen Anti-Mitochondrial Ab Anti-Smooth Muscle Ab Hepatitis A IgM Ab Hep Bs Antigen Hep Bs Antibody Hep B Core Total A b Hepatitis C Ab (EI A) HIV 1&2 Ab/P24 Ag 4thGn ULTRASOUND OF THE ABDOMEN WITH ELASTOGRAPHY 04/17/23 (F-1, F-2) FINDINGS: PANCREAS: Normal. The visualized pancreatic head and body are normal in appearance. The remainder of the pancreas is obscured from visualization by the overlying bowel gas. ABDOMINAL AORTA: The proximal, middle, and distal aortic segments are normal in caliber. INFERIOR VENA CAVA: Visualized portions are normal. LIVER: Normal. The liver demonstrates normal size, contour and normal echogenicity. No focal lesion or intrahepatic biliary duct dilatation. The right lobe measures 13.3 cm in length. The left lobe measures 9.2 cm in length. Portal flow is towards the liver (hepatopetal). Shear wave liver elastography median stiffness is 1.86 m/s (reference: normal median stiffness is 1.3 m/s or less). IQR/median stiffness to assess sampling precision is 0.12 (reference: good quality data set is IQR/median stiffness of 0.15 or less). GALLBLADDER: Surgically absent. COMMON BILE DUCT: Normal in caliber measuring 0.3 cm in diameter. RIGHT KIDNEY: Normal. No hydronephrosis. No renal calculi or focal parenchymal lesions. The kidney measures 12.2 cm in maximum dimension. LEFT KIDNEY: Normal. No hydronephrosis. No renal calculi or focal parenchymal lesions. The kidney measures 12.7 cm in maximum dimension. SPLEEN: Normal. The spleen measures 9.1 cm in maximum dimension. FREE FLUID: None. US/US abdomen comp w elastography IMPRESSION: 1. The gallbladder is surgically absent. 2. Liver elastography: Measurements are suggestive of compensated advanced chronic liver disease but need further test for confirmation. TODAY'S VISIT [place] #[id number], tushar Vance live She received the Lortronex and she is well controlled with this 0,5mg dose. She has occasional CIC. She is educated that if this happens she should go down to qd or skip a day of dosing. She also was started on Ozempic for her NIDDM so this may cause her increasing gastroparesis or CIC. I inform her of this and that she should inform me if she has GI sx that are like this. She had 1 isolated episode of nausea vomiting and diarrhea this Sunday that seems to have resolved. This could be a passing virus but also could be that she is on week 2 of Ozempic and she beginning to feel the side effects as the drug gained therapeutic levels in her body. I tell her that I am not sure which these would be an at this point we should just wait and watch. Fortunately she is feeling better today. Review all of the liver labs and, essentially, since she is not overweight and does not drink alcohol the cardoso to controlling her liver disease is going to be getting her blood sugars under control. Last A1c is running suboptimally. This is probably why she was started on Ozempic although this medication may need to be sustained out lower dosing levels to avoid the GI side effects of constipation and increase gastroparesis. This is important because she is already at the maximum dose of her Reglan. The patient tells me that she does not have an manager payment currently and I know there is a shortage of them so it may be a while before she has specialist to manage her diabetes. She is due for screening colonoscopy. There are no prior problems with anesthesia or sedation. Her asthma is controlled and she denies any cardiac problems. There are no infectious disease problems. She had a cousin with colon cancer but there is no known first-degree relatives with polyps or colon cancer. Return office visit in 8 weeks to make sure the Lotronex still working appropriately. FOR[facility] Medical History (Updated 09/12/23 @ 16:48 by DAMIAN Ryan) Pre-op evaluation Physical exam Transaminitis Urinary incontinence Diabetes mellitus Back pain Tingling of both feet Bilateral leg and foot pain Lumbosacral strain Depression Insomnia Snoring Hypersomnia Urge urinary incontinence Anxiety and depression Obesity (BMI 30-39.9) Type 2 diabetes mellitus with hyperglycemia Fibromyalgia History of herniated intervertebral disc History of TIA (transient ischemic attack) Osteopenia Allergic rhinitis Migraine aura without headache Osteoarthritis Asthma Type 2 diabetes mellitus with diabetic polyneuropathy Hyperlipidemia LDL goal <70 Vitamin D insufficiency Hypertension Surgical History History of carpal tunnel surgery History of cholecystectomy History of cervical biopsy H/O colonoscopy History of bilateral tubal ligation History of partial hysterectomy History of bladder suspension procedure History of appendectomy Family History Father Kidney failure Diabetes CVD (cardiovascular disease) Hypertension Mother Diabetes Hypertension Social History Housing: House Alcohol intake: never Patient Tobacco Use Status: Never used Tobacco e-Cigarette/Vaping Use: Never Used Second Hand Smoke Exposure: No service: No Current occupational status: retired Cognitive needs: No Hearing needs: No Vision needs: No Review of Systems Const Denies fatigue, Denies fever(s), Denies night sweats, Denies poor appetite and Denies weight loss ENT Reports Normal hearing present, Denies dental pain, Denies dysphagia, Denies hearing loss, Denies mouth pain, Denies odynophagia, Denies throat swelling, Denies tongue swelling and Reports other (Dentition adequate) Card Reports no additional complaints Resp Reports no additional complaints GI Details: Denies abdominal pain, Denies melena, Denies bloating, Denies hematochezia, Denies constipation, Denies GI cramping, Denies dysphagia, Denies excessive flatus, Reports early satiety, Reports heartburn, Reports diarrhea, Denies nausea, Denies odynophagia, Denies vomiting and Denies hematemesis Skin/Breast Denies pruritus, Denies lesions, Denies rash and Denies jaundice Neuro Reports Normal hearing present and Denies Abnormal speech present Endo Denies fatigue Aller/Immun Denies throat swelling and Denies tongue swelling Physical Exam Vital Signs: Last Vital Signs Pulse 73 09/12/23 13:38 BP 155/65 H 09/12/23 13:38 BMI result Body Mass Index 26.6 Const General: cooperative, no acute distress, well developed and well groomed Nutritional Appearance: average body habitus and well nourished Orientation/consciousness: oriented to person, oriented to place and oriented to time Limitations: language barrier HEENT Head: Yes normocephalic and Yes atraumatic Eyes General: appearance normal, both eyes and all related structures Pupils: Equal, round and reactive pupils present Neck Neck: Yes normal visual inspection and Yes no lymphadenopathy Thyroid: Thyroid normal Resp Effort & Inspection: normal respiratory effort and able to speak in complete sentences Auscultation: clear to auscultation bilaterally Cardio Rate: regular rate Rhythm: regular rhythm Heart sounds: Normal, physiologic split S2 sound present Peripheral pulses: radial pulses present and posterior tibial pulses present GI Inspection: No distended and No Abdominal panniculus present Palpation (GI): Soft to palpation, nontender, no guarding, not rigid and No hepatosplenomegaly present Percussion: Yes normal to percussion Auscultation: normal bowel sounds Rectal Exam - Female: deferred Skin General skin exam: no rashes or lesions noted, turgor normal, skin not dry, no jaundice, No spider nevi and no striae Rashes: no rashes Nails: normal Neuro General: oriented to person, oriented to place and oriented to time Cranial nerves: Yes Equal, round and reactive pupils present and Yes Normal hearing present Speech: No Abnormal speech present Extrem General: Yes normal to inspection, No clubbing, No cyanosis and No edema Psych Appearance: grossly normal and well kempt Mental Status: mental status grossly normal Speech and movement: Normal speech and movement present Affect: normal affect Attitude: cooperative Thought process: Normal thought process present and not confabulating Thought content: Normal thought content present Insight: Limited insight present (Psych) Judgement: Limited judgement present (Psych) Results Reviewed Results Reviewed: Laboratory Tests 04/12/23 04/12/23 08/06/23 11:33 11:33 14:15 Estimated GFR Hgb A1c (Clinic) 8.9 H Total Bilirubin AST ALT Alkaline Phosphatase YENI Screen NEGATIVE Anti-Mitochondrial Ab NEGATIVE Anti-Smooth Muscle Ab <20 Hepatitis A IgM Ab Nonreactive Hep Bs Antigen Negative Hep Bs Antibody NONREACTIVE Hep B Core Total Ab Nonreactive Hepatitis C Ab (EIA) Nonreactive HIV 1&2 Ab/P24 Ag 4thGn Nonreactive 08/21/23 10:16 Estimated GFR > 60 Hgb A1c (Clinic) Total Bilirubin 0.6 AST 26 ALT 24 Alkaline Phosphatase 65 YENI Screen Anti-Mitochondrial Ab Anti-Smooth Muscle Ab Hepatitis A IgM Ab Hep Bs Antigen Hep Bs Antibody Hep B Core Total Ab Hepatitis C Ab (EIA) HIV 1&2 Ab/P24 Ag 4thGn ULTRASOUND OF THE ABDOMEN WITH ELASTOGRAPHY 04/17/23 (F-1, F-2) FINDINGS: PANCREAS: Normal. The visualized pancreatic head and body are normal in appearance. The remainder of the pancreas is obscured from visualization by the overlying bowel gas. ABDOMINAL AORTA: The proximal, middle, and distal aortic segments are normal in caliber. INFERIOR VENA CAVA: Visualized portions are normal. LIVER: Normal. The liver demonstrates normal size, contour and normal echogenicity. No focal lesion or intrahepatic biliary duct dilatation. The right lobe measures 13.3 cm in length. The left lobe measures 9.2 cm in length. Portal flow is towards the liver (hepatopetal). Shear wave liver elastography median stiffness is 1.86 m/s (reference: normal median stiffness is 1.3 m/s or less). IQR/median stiffness to assess sampling precision is 0.12 (reference: good quality data set is IQR/median stiffness of 0.15 or less). GALLBLADDER: Surgically absent. COMMON BILE DUCT: Normal in caliber measuring 0.3 cm in diameter. RIGHT KIDNEY: Normal. No hydronephrosis. No renal calculi or focal parenchymal lesions. The kidney measures 12.2 cm in maximum dimension. LEFT KIDNEY: Normal. No hydronephrosis. No renal calculi or focal parenchymal lesions. The kidney measures 12.7 cm in maximum dimension. SPLEEN: Normal. The spleen measures 9.1 cm in maximum dimension. FREE FLUID: None. US/US abdomen comp w elastography IMPRESSION: 1. The gallbladder is surgically absent. 2. Liver elastography: Measurements are suggestive of compensated advanced chronic liver disease but need further test for confirmation. Assessment & Plan Assessment & Plan (1) GO (nonalcoholic steatohepatitis): Comment: [facility] Laboratory Tests 08/06/23 Hgb A1c (Clinic) 8.9 H YENI Screen NEGATIVE Anti-Mitochondrial Ab NEGATIVE Anti-Smooth Muscle Ab <20 Hepatitis A IgM Ab Nonreactive Hep Bs Antigen Negative Hep Bs Antibody NONREACTIVE Hep B Core Total Ab Nonreactive Hepatitis C Ab (EIA) Nonreactive HIV 1&2 Ab/P24 Ag 4thGn Nonreactive Estimated GFR > 60 Total Bilirubin 0.6 AST 26 ALT 24 Alkaline Phosphatase 65 ULTRASOUND OF THE ABDOMEN WITH ELASTOGRAPHY 04/17/23 (F-1, F-2) CURRENT LABS Laboratory Tests 04/12/2309/ [id number]:[id number]:[id number] Estimated GFR Hgb A1c (Clinic) 8.9 H Total Bilirubin AST ALT Alkaline Phosphatase YENI Screen NEGATIVE Anti-Mitochondrial Ab NEGATIVE Anti-Smooth Muscle Ab <20 Hepatitis A IgM Ab Nonreactive Hep Bs Antigen Negative Hep Bs Antibody NONREACTIVE Hep B Core Total Ab Nonreactive Hepatitis C Ab (EIA) Nonreactive HIV 1&2 Ab/P24 Ag 4thGn Nonreactive 08/21/23 10:16 Estimated GFR > 60 Hgb A1c (Clinic) Total Bilirubin 0.6 AST 26 ALT 24 Alkaline Phosphatase 65 YENI Screen Anti-Mitochondrial Ab Anti-Smooth Muscle Ab Hepatitis A IgM Ab Hep Bs Antigen Hep Bs Antibody Hep B Core Total Ab Hepatitis C Ab (EIA) HIV 1&2 Ab/P24 Ag 4thGn ULTRASOUND OF THE ABDOMEN WITH ELASTOGRAPHY 04/17/23 (F-1, F-2) FINDINGS: PANCREAS: Normal. The visualized pancreatic head and body are normal in appearance. The remainder of the pancreas is obscured from visualization by the overlying bowel gas. ABDOMINAL AORTA: The proximal, middle, and distal aortic segments are normal in caliber. INFERIOR VENA CAVA: Visualized portions are normal. LIVER: Normal. The liver demonstrates normal size, contour and normal echogenicity. No focal lesion or intrahepatic biliary duct dilatation. The right lobe measures 13.3 cm in length. The left lobe measures 9.2 cm in length. Portal flow is towards the liver (hepatopetal). Shear wave liver elastography median stiffness is 1.86 m/s (reference: normal median stiffness is 1.3 m/s or less). IQR/median stiffness to assess sampling precision is 0.12 (reference: good quality data set is IQR/median stiffness of 0.15 or less). GALLBLADDER: Surgically absent. COMMON BILE DUCT: Normal in caliber measuring 0.3 cm in diameter. RIGHT KIDNEY: Normal. No hydronephrosis. No renal calculi or focal parenchymal lesions. The kidney measures 12.2 cm in maximum dimension. LEFT KIDNEY: Normal. No hydronephrosis. No renal calculi or focal parenchymal lesions. The kidney measures 12.7 cm in maximum dimension. SPLEEN: Normal. The spleen measures 9.1 cm in maximum dimension. FREE FLUID: None. US/US abdomen comp w elastography IMPRESSION: 1. The gallbladder is surgically absent. 2. Liver elastography: Measurements are suggestive of compensated advanced chronic liver disease but need further test for confirmation. 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 Will trial Senna prn constipation and daily fiber supplement. Bentyl on diarrhea/ cramping days. Has an element of post cholecystectomy syndrome Code(s): K58.0 - Irritable bowel syndrome with diarrhea (5) Gastroparesis: Code(s): K31.84 - Gastroparesis (6) Memory loss: Comment: she did well on MMSE - the cognitive issues are likely related to mood and sleep issues Code(s): R41.3 - Other amnesia (7) Pre-op evaluation: Code(s): Z01.818 - Encounter for other preprocedural examination Plan [place] #[id number], tushar Vance live She received the Lortronex and she is well controlled with this 0,5mg dose. She has occasional CIC. She is educated that if this happens she should go down to qd or skip a day of dosing. She also was started on Ozempic for her NIDDM so this may cause her increasing gastroparesis or CIC. I inform her of this and that she should inform me if she has GI sx that are like this. She had 1 isolated episode of nausea vomiting and diarrhea this Sunday that seems to have resolved. This could be a passing virus but also could be that she is on week 2 of Ozempic and she beginning to feel the side effects as the drug gained therapeutic levels in her body. I tell her that I am not sure which these would be an at this point we should just wait and watch. Fortunately she is feeling better today. Review all of the liver labs and, essentially, since she is not overweight and does not drink alcohol the cardoso to controlling her liver disease is going to be getting her blood sugars under control. Last A1c is running suboptimally. This is probably why she was started on Ozempic although this medication may need to be sustained out lower dosing levels to avoid the GI side effects of constipation and increase gastroparesis. This is important because she is already at the maximum dose of her Reglan. The patient tells me that she does not have an manager payment currently and I know there is a shortage of them so it may be a while before she has specialist to manage her diabetes. She is due for screening colonoscopy. There are no prior problems with anesthesia or sedation. Her asthma is controlled and she denies any cardiac problems. There are no infectious disease problems. She had a cousin with colon cancer but there is no known first-degree relatives with polyps or colon cancer. Return office visit in 8 weeks to make sure the Lotronex still working appropriately. Orders: Orders Colonoscopy - GI Use Only Today Z01.818 - Encounter for other preprocedural examination Medications: New peg 3350-electrolytes 236-22.74-6.74 -5.86 gram (Golytely) until fecal effluent is clear; do not exceed a total volume of 2,000 mL 240 mL PO Q10M 1 day 4,000 mL 0RF Z12.11 - Encounter for screening for malignant neoplasm of colon bisacodyl (Dulcolax (bisacodyl)) 10 mg (2 x 5 mg) PO BEDTIME 2 days 4 tabs 0RF Refilled famotidine 40 mg PO BEDTIME 90 tabs 2RF K21.9 - Gastro-esophageal reflux disease without esophagitis metoclopramide HCl 10 mg PO QID 30 days 120 tabs 6RF K31.84 - Gastroparesis pantoprazole 40 mg PO DAILY 90 tabs 1RF K21.9 - Gastro-esophageal reflux disease without esophagitis Coding Level of Care Code Est Pt Level 4 (35747) Diagnoses GO (nonalcoholic steatohepatitis) K75.81 Type 2 diabetes mellitus with hyperglycemia, with long-term current use of insulin E11.65; Z79.4 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
== END 2023-09-12 14:02 | disposition home or self-care (01) ==
PROVIDERS: PCP Internal Medicine; Visit Provider Nurse Practitioner
DX: K75.81 Nonalcoholic steatohepatitis (NASH) (principal); E11.65 Type 2 diabetes mellitus with hyperglycemia; Z79.4 Long term (current) use of insulin; K21.9 Gastro-esophageal reflux disease without esophagitis; K58.0 Irritable bowel syndrome with diarrhea; K31.84 Gastroparesis; R41.3 Other amnesia; Z01.818 Encounter for other preprocedural examination
CPT/HCPCS: 99214

== ENCOUNTER → 2023-09-12 13:35 | Outpatient (BNVA) | payer OTHER, SELFPAY | PROVIDERS: PCP Internal Medicine; Visit Provider Nurse Practitioner | DX: Z01.818 Encounter for other preprocedural examination (principal); K75.81 Nonalcoholic steatohepatitis (NASH); K21.9 Gastro-esophageal reflux disease without esophagitis; K58.0 Irritable bowel syndrome with diarrhea; K31.84 Gastroparesis; R41.3 Other amnesia; E11.65 Type 2 diabetes mellitus with hyperglycemia; Z79.4 Long term (current) use of insulin | CPT/HCPCS: 99212 ==

== ENCOUNTER 2023-11-07 12:52 | Outpatient (AMB) | payer OTHER, SELFPAY ==
--- NOTE | 2023-11-07 12:57 | MHC.OFFVIS ---
Vital Signs 11/07/23 13:00 Height 5 ft 4 in Weight 154 lb 5.177 oz BMI 26.5 BP 114/60 Blood Pressure Location Lt brachial Position Sitting Pulse 77 Intake Visit Reasons: 8 week follow up Intake Note: Saniya presents in the office as a 8 week follow up CC: She states that she is not having any concerns she states she is feeling better than she was at her last visit. Retail Sales Merchandiser Required: Yes Retail Sales Merchandiser Name: Santos [id number] Allergies amoxicillin Allergy (Unknown, Verified 11/07/23 13:02) pruritus penicillin G Allergy (Unknown, Verified 11/07/23 13:02) pruritis duloxetine [From Cymbalta] Adverse Reaction (Intermediate, Verified 11/07/23 13:02) palpitations and sob dulaglutide [Trulicity] Adverse Reaction (Unknown, Verified 11/07/23 13:02) abdominal pain HPI HPI 8 week follow up: Details: Assessment & Plan (1) GO (nonalcoholic steatohepatitis): Comment: [facility] Laboratory Tests 08/06/23 Hgb A1c (Clinic) 8.9 H YENI Screen NEGATIVE Anti-Mitochondrial Ab NEGATIVE Anti-Smooth Muscle Ab <20 Hepatitis A IgM Ab Nonreactive Hep Bs Antigen Negative Hep Bs Antibody NONREACTIVE Hep B Core Total Ab Nonreactive Hepatitis C Ab (EIA) Nonreactive HIV 1&2 Ab/P24 Ag 4thGn Nonreactive Estimated GFR > 60 Total Bilirubin 0.6 AST 26 ALT 24 Alkaline Phosphatase 65 ULTRASOUND OF THE ABDOMEN WITH ELASTOGRAPHY 04/17/23 (F-1, F-2) CURRENT LABS Laboratory Tests 04/12/2309/ [id number] Estimated GFR Hgb A1c (Clinic) 8.9 H Total Bilirubin AST ALT Alkaline Phosphatase YENI Screen NEGATIVE Anti-Mitochondrial Ab NEGATIVE Anti-Smooth Muscle Ab <20 Hepatitis A IgM Ab Nonreactive Hep Bs Antigen Negative Hep Bs Antibody NONREACTIVE Hep B Core Total Ab Nonreactive Hepatitis C Ab (EIA) Nonreactive HIV 1&2 Ab/P24 Ag 4thGn Nonreactive 08/21/23 10:16 Estimated GFR > 60 Hgb A1c (Clinic) Total Bilirubin 0.6 AST 26 ALT 24 Alkaline Phosphatase 65 YENI Screen Anti-Mitochondrial Ab Anti-Smooth Muscle Ab Hepatitis A IgM Ab Hep Bs Antigen Hep Bs Antibody Hep B Core Total Ab Hepatitis C Ab (EIA) HIV 1&2 Ab/P24 Ag 4thGn ULTRASOUND OF THE ABDOMEN WITH ELASTOGRAPHY 04/17/23 (F-1, F-2) FINDINGS: PANCREAS: Normal. The visualized pancreatic head and body are normal in appearance. The remainder of the pancreas is obscured from visualization by the overlying bowel gas. ABDOMINAL AORTA: The proximal, middle, and distal aortic segments are normal in caliber. INFERIOR VENA CAVA: Visualized portions are normal. LIVER: Normal. The liver demonstrates normal size, contour and normal echogenicity. No focal lesion or intrahepatic biliary duct dilatation. The right lobe measures 13.3 cm in length. The left lobe measures 9.2 cm in length. Portal flow is towards the liver (hepatopetal). Shear wave liver elastography median stiffness is 1.86 m/s (reference: normal median stiffness is 1.3 m/s or less). IQR/median stiffness to assess sampling precision is 0.12 (reference: good quality data set is IQR/median stiffness of 0.15 or less). GALLBLADDER: Surgically absent. COMMON BILE DUCT: Normal in caliber measuring 0.3 cm in diameter. RIGHT KIDNEY: Normal. No hydronephrosis. No renal calculi or focal parenchymal lesions. The kidney measures 12.2 cm in maximum dimension. LEFT KIDNEY: Normal. No hydronephrosis. No renal calculi or focal parenchymal lesions. The kidney measures 12.7 cm in maximum dimension. SPLEEN: Normal. The spleen measures 9.1 cm in maximum dimension. FREE FLUID: None. US/US abdomen comp w elastography IMPRESSION: 1. The gallbladder is surgically absent. 2. Liver elastography: Measurements are suggestive of compensated advanced chronic liver disease but need further test for confirmation. 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 Will trial Senna prn constipation and daily fiber supplement. Harper on diarrhea/ cramping days. Has an element of post cholecystectomy syndrome Code(s): K58.0 - Irritable bowel syndrome with diarrhea (5) Gastroparesis: Code(s): K31.84 - Gastroparesis (6) Memory loss: Comment: she did well on MMSE - the cognitive issues are likely related to mood and sleep issues Code(s): R41.3 - Other amnesia (7) Pre-op evaluation: Code(s): Z01.818 - Encounter for other preprocedural examination Plan Icelandic #[id number], tushar Vance live She received the Lortronex and she is well controlled with this 0,5mg dose. She has occasional CIC. She is educated that if this happens she should go down to qd or skip a day of dosing. She also was started on Ozempic for her NIDDM so this may cause her increasing gastroparesis or CIC. I inform her of this and that she should inform me if she has GI sx that are like this. She had 1 isolated episode of nausea vomiting and diarrhea this Sunday that seems to have resolved. This could be a passing virus but also could be that she is on week 2 of Ozempic and she beginning to feel the side effects as the drug gained therapeutic levels in her body. I tell her that I am not sure which these would be an at this point we should just wait and watch. Fortunately she is feeling better today. Review all of the liver labs and, essentially, since she is not overweight and does not drink alcohol the cardoso to controlling her liver disease is going to be getting her blood sugars under control. Last A1c is running suboptimally. This is probably why she was started on Ozempic although this medication may need to be sustained out lower dosing levels to avoid the GI side effects of constipation and increase gastroparesis. This is important because she is already at the maximum dose of her Reglan. 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 She is due for screening colonoscopy. There are no prior problems with anesthesia or sedation. Her asthma is controlled and she denies any cardiac problems. There are no infectious disease problems. She had a cousin with colon cancer but there is no known first-degree relatives with polyps or colon cancer. Return office visit in 8 weeks to make sure the Lotronex still working appropriately. Orders: Orders Colonoscopy - GI Use Only Today Z01.818 - Encounter for other preprocedural examination Medications: New peg 3350-electrolytes 236-22.74-6.74 -5.86 gram (Golytely) until fecal effluent is clear; do not exceed a total volume of 2,000 mL 240 mL PO Q10M 1 day 4,000 mL 0RF Z12.11 - Encounter for screening for malignant neoplasm of colon bisacodyl (Dulcolax (bisacodyl)) 10 mg (2 x 5 mg) PO BEDTIME 2 days 4 tabs 0RF Refilled famotidine 40 mg PO BEDTIME 90 tabs 2RF K21.9 - Gastro-esophageal reflux disease without esophagitis metoclopramide HCl 10 mg PO QID 30 days 120 tabs 6RF K31.84 - Gastroparesis pantoprazole 40 mg PO DAILY 90 tabs 1RF K21.9 - Gastro-esophageal reflux disease without esophagitis COLONOSCOPY 12/2023 BIOPSY. TODAY'S VISIT Icelandic #[id number] Baljeet After her 4 days of N/V/D it all finally resolved. I am now suspecting Norovirus, as this has been dx'ed in several of my patients in the last couple of weeks. With this she now feels stable on her current GI regimen. She continues on her famotidine in the evening, pantoprazole in the morning and her Reglan 10 mg 4 times a day with good control of her symptoms and no adverse effects. She already has an appointment in December with me after the colonoscopy so we will keep that going forward. [facility] Medical History Pre-op evaluation Physical exam Transaminitis Urinary incontinence Diabetes mellitus Back pain Tingling of both feet Bilateral leg and foot pain Lumbosacral strain Depression Insomnia Snoring Hypersomnia Urge urinary incontinence Anxiety and depression Obesity (BMI 30-39.9) Type 2 diabetes mellitus with hyperglycemia Fibromyalgia History of herniated intervertebral disc History of TIA (transient ischemic attack) Osteopenia Allergic rhinitis Migraine aura without headache Osteoarthritis Asthma Type 2 diabetes mellitus with diabetic polyneuropathy Hyperlipidemia LDL goal <70 Vitamin D insufficiency Hypertension Surgical History History of carpal tunnel surgery History of cholecystectomy History of cervical biopsy H/O colonoscopy History of bilateral tubal ligation History of partial hysterectomy History of bladder suspension procedure History of appendectomy Family History Father Kidney failure Diabetes CVD (cardiovascular disease) Hypertension Mother Diabetes Hypertension Social History Housing: House Alcohol intake: never Patient Tobacco Use Status: Never used Tobacco e-Cigarette/Vaping Use: Never Used Second Hand Smoke Exposure: No service: No Current occupational status: retired Cognitive needs: No Hearing needs: No Vision needs: No Review of Systems Const Denies fatigue, Denies fever(s), Denies night sweats, Denies poor appetite and Denies weight loss ENT Reports Normal hearing present, Denies dental pain, Denies dysphagia, Denies hearing loss, Denies mouth pain, Denies odynophagia, Denies throat swelling, Denies tongue swelling and Reports other (Dentition adequate) Card Reports no additional complaints Resp Reports no additional complaints GI Details: Denies abdominal pain, Denies melena, Denies bloating, Denies hematochezia, Denies constipation, Denies GI cramping, Denies dysphagia, Denies excessive flatus, Reports early satiety, Reports heartburn, Denies diarrhea, Denies nausea, Denies odynophagia, Denies vomiting and Denies hematemesis Skin/Breast Denies pruritus, Denies lesions, Denies rash and Denies jaundice Neuro Reports Normal hearing present and Denies Abnormal speech present Endo Denies fatigue Aller/Immun Denies throat swelling and Denies tongue swelling Physical Exam Vital Signs: Last Vital Signs Pulse 77 11/07/23 13:00 BP 114/60 11/07/23 13:00 BMI result Body Mass Index 26.5 Const General: cooperative, no acute distress, well developed and well groomed Nutritional Appearance: average body habitus and well nourished Orientation/consciousness: oriented to person, oriented to place and oriented to time Limitations: language barrier HEENT Head: Yes normocephalic and Yes atraumatic Eyes General: appearance normal, both eyes and all related structures Pupils: Equal, round and reactive pupils present Neck Neck: Yes normal visual inspection and Yes no lymphadenopathy Thyroid: Thyroid normal Resp Effort & Inspection: normal respiratory effort and able to speak in complete sentences Auscultation: clear to auscultation bilaterally Cardio Rate: regular rate Rhythm: regular rhythm Heart sounds: Normal, physiologic split S2 sound present Peripheral pulses: radial pulses present and posterior tibial pulses present GI Inspection: No distended and No Abdominal panniculus present Palpation (GI): Soft to palpation, nontender, no guarding, not rigid and No hepatosplenomegaly present Percussion: Yes normal to percussion Auscultation: normal bowel sounds Rectal Exam - Female: deferred Skin General skin exam: no rashes or lesions noted, turgor normal, skin not dry, no jaundice, No spider nevi and no striae Rashes: no rashes Nails: normal Neuro General: oriented to person, oriented to place and oriented to time Cranial nerves: Yes Equal, round and reactive pupils present and Yes Normal hearing present Speech: No Abnormal speech present Extrem General: Yes normal to inspection, No clubbing, No cyanosis and No edema Psych Appearance: grossly normal and well kempt Mental Status: mental status grossly normal Speech and movement: Normal speech and movement present Affect: normal affect Attitude: cooperative Thought process: Normal thought process present and not confabulating Thought content: Normal thought content present Insight: Limited insight present (Psych) Judgement: Limited judgement present (Psych) Assessment & Plan Assessment & Plan (1) Irritable bowel syndrome with diarrhea: Comment: diarrhea more dominant, but at times becomes constipated, Pattern varies. Will trial Senna prn constipation and daily fiber supplement. Bentyl on diarrhea/ cramping days. Has an element of post cholecystectomy syndrome Code(s): K58.0 - Irritable bowel syndrome with diarrhea Category: Medical (2) Gastroparesis: Code(s): K31.84 - Gastroparesis Category: Medical (3) GERD (gastroesophageal reflux disease): Code(s): K21.9 - Gastro-esophageal reflux disease without esophagitis Category: Medical Qualifiers: Esophagitis presence: without esophagitis Qualified Code(s): K21.9 - Gastro-esophageal reflux disease without esophagitis Plan Icelandic #[id number] Baljeet After her 4 days of N/V/D it all finally resolved. I am now suspecting Norovirus, as this has been dx'ed in several of my patients in the last couple of weeks. With this she now feels stable on her current GI regimen. She continues on her famotidine in the evening, pantoprazole in the morning and her Reglan 10 mg 4 times a day with good control of her symptoms and no adverse effects. She already has an appointment in December with me after the colonoscopy so we will keep that going forward. COLONOSCOPY 12/2023 BIOPSY. Coding Level of Care Code Est Pt Level 3 (53733) Diagnoses Irritable bowel syndrome with diarrhea K58.0 Gastroparesis K31.84 Gastroesophageal reflux disease without esophagitis K21.9 Esophagitis presence: without esophagitis
[2023-11-07 13:00] VITALS: BP 114/60; PULSE 77; BMI 26.5
== END 2023-11-07 13:14 | disposition home or self-care (01) ==
PROVIDERS: PCP Internal Medicine; Visit Provider Nurse Practitioner
DX: K58.0 Irritable bowel syndrome with diarrhea (principal); K31.84 Gastroparesis; K21.9 Gastro-esophageal reflux disease without esophagitis
CPT/HCPCS: 99213

== ENCOUNTER → 2023-11-07 12:52 | Outpatient (BNVA) | payer OTHER, SELFPAY | PROVIDERS: PCP Internal Medicine; Visit Provider Nurse Practitioner | DX: K58.0 Irritable bowel syndrome with diarrhea (principal); K21.9 Gastro-esophageal reflux disease without esophagitis; K31.84 Gastroparesis | CPT/HCPCS: 99212 ==

== ENCOUNTER 2023-12-28 14:29 | Outpatient (AMB) | payer OTHER, SELFPAY ==
[2023-12-28 15:03] VITALS: BP 118/70; PULSE 80; O2SAT 99; BMI 26.8
--- NOTE | 2023-12-28 15:03 | A.OFFVIS_ITS ---
Vital Signs 12/28/23 15:03 Height 5 ft 4 in Weight 156 lb BMI 26.8 BP 118/70 Blood Pressure Location Rt brachial Position Sitting Pulse 80 Pulse Source Pulse Oximeter Pulse Oximetry (%) 99 Oxygen Delivery Method Room Air Intake Visit Reasons: 4 Month FU - Conf Intake Note: Patient presents for 4 month follow up. patient has cpap machine and is using it every day. Allergies amoxicillin Allergy (Unknown, Verified 12/28/23 15:10) pruritus penicillin G Allergy (Unknown, Verified 12/28/23 15:10) pruritis duloxetine [From Cymbalta] Adverse Reaction (Intermediate, Verified 12/28/23 15:10) palpitations and sob dulaglutide [Trulicity] Adverse Reaction (Unknown, Verified 12/28/23 15:10) abdominal pain Medication List - Last Reconciled 12/28/23 by MOISES Mendoza [adult diapers As directed] albuterol sulfate 90 mcg/actuation 2 puffs PO Q4-6H PRN alcohol swabs pad topical TID alosetron (Lotronex) 0.5 mg PO BID [bed rail As directed] bisacodyl (Dulcolax (bisacodyl)) 10 mg (2 x 5 mg) PO BEDTIME 2 days blood pressure monitor As directed blood pressure monitor As directed blood sugar diagnostic (FreeStyle Lite Strips) As directed three times a day blood-glucose meter (FreeStyle Lite Meter kit) three times a day cholecalciferol (vitamin D3) 50 mcg PO DAILY 90 days clonazepam 0.5 mg PO DAILY PRN 30 days cyclobenzaprine 5 mg PO TID PRN dapaglifloz propaned-metformin 5-1,000 mg ER (Xigduo XR) 2 tabs (2 x 5-1,000 mg) PO DAILY ezetimibe 10 mg PO DAILY famotidine 40 mg PO BEDTIME [handheld showerhead As directed] hydroxyzine HCl 10 mg PO BEDTIME PRN 10 days ibuprofen 800 mg PO Q8H PRN 30 days incontinence pad, liner, disp Use 1 pad three times a day lancets (FreeStyle Lancets) As directed three time a day lisinopril-hydrochlorothiazide 20-12.5 mg 1 tab PO DAILY 90 days loratadine 10 mg PO DAILY metoclopramide HCl 10 mg PO QID 30 days miscellaneous medical supply 1 ea miscellaneous DAILY [non-slip rug for tub As directed] pantoprazole 40 mg PO DAILY peg 3350-electrolytes 236-22.74-6.74 -5.86 gram (Golytely) 240 mL PO Q10M 1 day [personal wipes As directed] [raised toilet seat As directed] rosuvastatin 40 mg PO DAILY semaglutide (Ozempic) 0.5 mg (0.736 mL) subcut QWEEK 90 days semaglutide (Ozempic) 0.25 mg subcut QWEEK sertraline 150 mg (1.5 x 100 mg) PO DAILY Shower Chair As directed sitagliptin phosphate (Januvia) 100 mg PO DAILY trazodone 100 mg PO BEDTIME 90 days underpads (Bed Underpads) As directed walker As directed walker (Ultra-Light Rollator misc) As directed HPI Comments Details: 63-yr-old female presents for follow-up visit for sleep apnea. Pt denies any significant interval medical history changes. Pt received her PAP device about 2 weeks ago. She is sleeping at leats 6 hrs a night w/ her PAP machine. She has started to use her PAP device, and feels she is sleeping better with use. She feels a bit more daytime energy. She is cleaning her PAP supplies. We do not yet have her PAP compliance report, however pt states her machine shows a green happy face every morning. [facility] Medical History (Updated 11/10/23 @ 21:43 by Jess Garza MD) Back pain Pre-op evaluation Physical exam Transaminitis Urinary incontinence Diabetes mellitus Tingling of both feet Bilateral leg and foot pain Lumbosacral strain Depression Insomnia Snoring Hypersomnia Urge urinary incontinence Anxiety and depression Obesity (BMI 30-39.9) Type 2 diabetes mellitus with hyperglycemia Fibromyalgia History of herniated intervertebral disc History of TIA (transient ischemic attack) Osteopenia Allergic rhinitis Migraine aura without headache Osteoarthritis Asthma Type 2 diabetes mellitus with diabetic polyneuropathy Hyperlipidemia LDL goal <70 Vitamin D insufficiency Hypertension Surgical History History of carpal tunnel surgery History of cholecystectomy History of cervical biopsy H/O colonoscopy History of bilateral tubal ligation History of partial hysterectomy History of bladder suspension procedure History of appendectomy Family History Father Kidney failure Diabetes CVD (cardiovascular disease) Hypertension Mother Diabetes Hypertension Social History Housing: House Alcohol intake: never Patient Tobacco Use Status: Never used Tobacco e-Cigarette/Vaping Use: Never Used Second Hand Smoke Exposure: No service: No Current occupational status: retired Cognitive needs: No Hearing needs: No Vision needs: No Review of Systems Const All systems reviewed & are unremarkable except as noted in HPI and below Physical Exam Vital Signs: Last Vital Signs Pulse 80 12/28/23 15:03 BP 118/70 12/28/23 15:03 Pulse Ox 99 12/28/23 15:03 Oxygen Delivery Method Room Air 12/28/23 15:03 BMI result Body Mass Index 26.8 Const General: no acute distress Orientation/consciousness: patient oriented x3 Resp Effort & Inspection: able to speak in complete sentences Neuro General: patient oriented x3 Psych Mental Status: mental status grossly normal Speech and movement: Clear speech present Attitude: cooperative Results Reviewed Results Reviewed: PAP complaince report. Assessment & Plan Assessment & Plan (1) DIANA (obstructive sleep apnea): Comment: Mild degree of sleep apnea with increased severity in REM sleep. The AHI was 11/hr and oxygen jenaro was 74%. Code(s): G47.33 - Obstructive sleep apnea (adult) (pediatric) Category: Medical (2) Memory loss: Comment: she did well on MMSE - the cognitive issues are likely related to mood and sleep issues Code(s): R41.3 - Other amnesia Category: Medical Plan Continue APAP 5-20 cmH2O nightly > 4 hours, as pt is having good clinical effect for use. Monitor response of memory/cognition after using PAP therapy for several months. Clean machine and supplies daily. Change PAP supplies routinely. Pt to call us/respiratory home care company with any concerns. We have requested current PAP tx compliance report- will update pt w/ results. Follow-up in 6 months or sooner prn. Coding Level of Care Code Est Pt Level 3 (10844) Diagnoses DIANA (obstructive sleep apnea) G47.33 Memory loss R41.3
== END 2023-12-28 15:42 | disposition home or self-care (01) ==
PROVIDERS: PCP Internal Medicine; Visit Provider Nurse Practitioner Family
DX: G47.33 Obstructive sleep apnea (adult) (pediatric) (principal); R41.3 Other amnesia
CPT/HCPCS: 99213

== ENCOUNTER → 2023-12-28 14:29 | Outpatient (BNVA) | payer OTHER, SELFPAY | PROVIDERS: PCP Internal Medicine; Visit Provider Nurse Practitioner Family | DX: G47.33 Obstructive sleep apnea (adult) (pediatric) (principal); R41.3 Other amnesia | CPT/HCPCS: 99212 ==

== ENCOUNTER 2024-01-10 08:31 | Day surgery (SDC) | payer OTHER, SELFPAY ==
--- NOTE | 2024-01-09 12:02 | HO.ANESPROP2 ---
Documented by User: Carola Galindo NP 01/09/24 12:05 HPI - Anesthesia Eval Consult details Narrative: 63yo F for Colonoscopy Anesthesia Pre-Procedure Meds Is the patient on any of the following meds?: GLP1/DPP4 and SGLT2 Inhib PMFSH Active Problems Active Problems: All Active Problems Back pain (Acute) Pre-op evaluation (Acute) GO (nonalcoholic steatohepatitis) (Acute) DIANA (obstructive sleep apnea) (Acute) Right sided sciatica (Acute) Hyperlipidemia LDL goal <70 (Acute) Insomnia (Acute) Snoring (Acute) Hypersomnia (Acute) Frequent falls (Acute) Memory loss (Acute) Mild recurrent major depression (Acute) Low vitamin B12 level (Acute) Urge urinary incontinence (Acute) Insomnia (Acute) Generalized anxiety disorder (Acute) Overweight (BMI 25.0-29.9) (Acute) Asthma (Acute) Anxiety and depression (Acute) Obesity (BMI 30-39.9) (Acute) Type 2 diabetes mellitus with hyperglycemia (Acute) History of herniated intervertebral disc (Acute) GERD (gastroesophageal reflux disease) (Acute) Gastroparesis (Acute) Irritable bowel syndrome with diarrhea (Acute) Fibromyalgia (Acute) Type 2 diabetes mellitus with diabetic polyneuropathy (Acute) Hyperlipidemia LDL goal <70 (Acute) Type 2 diabetes mellitus with other diabetic kidney complication (Acute) Hypertension (Acute) Vitamin D insufficiency (Acute) Past Medical History Medical History Back pain Pre-op evaluation Physical exam Transaminitis Urinary incontinence Diabetes mellitus Tingling of both feet Bilateral leg and foot pain Lumbosacral strain Depression Insomnia Snoring Hypersomnia Urge urinary incontinence Anxiety and depression Obesity (BMI 30-39.9) Type 2 diabetes mellitus with hyperglycemia Fibromyalgia History of herniated intervertebral disc History of TIA (transient ischemic attack) Osteopenia Allergic rhinitis Migraine aura without headache Osteoarthritis Asthma Type 2 diabetes mellitus with diabetic polyneuropathy Hyperlipidemia LDL goal <70 Vitamin D insufficiency Hypertension Family History Family History Father Kidney failure Diabetes CVD (cardiovascular disease) Hypertension Mother Diabetes Hypertension Surgical History Surgical History History of carpal tunnel surgery History of cholecystectomy History of cervical biopsy H/O colonoscopy History of bilateral tubal ligation History of partial hysterectomy History of bladder suspension procedure History of appendectomy Social History Social History Housing: House Alcohol intake: never Patient Tobacco Use Status: Never used Tobacco e-Cigarette/Vaping Use: Never Used Second Hand Smoke Exposure: No Use of substances other than those prescribed or required for medical reasons: No Are you DNR?: No Advance Directives: No Advance Directives Information Provided: Yes service: No Current occupational status: retired Cognitive needs: No Hearing needs: No Vision needs: No Meds Allergies Allergy/AdvReac Type Severity Reaction Status Date / Time amoxicillin Allergy Unknown pruritus Verified 01/10/24 09:04 penicillin G Allergy Unknown pruritis Verified 01/10/24 09:04 duloxetine [From Cymbalta] AdvReac Intermediate palpitations Verified 01/10/24 09:04 and sob dulaglutide [Trulicity] AdvReac Unknown abdominal Verified 01/10/24 09:04 pain Home Medications ?Medication ?Instructions ?Recorded ?Confirmed ?Last Taken ?Type alcohol swabs pad topical TID 04/14/20 12/28/23 Unknown History loratadine 10 mg tablet 10 mg PO DAILY 04/14/20 01/10/24 01/08/24 History cyclobenzaprine 5 mg tablet 5 mg PO TID PRN 11/30/22 12/28/23 Unknown History Exam Pertinent Lab Results Pertinent Lab Results: Laboratory Tests 03/14/22 08/21/23 10:26 10:16 WBC 3.9 L Hgb 13.4 Hct 41.8 Plt Count 202 Sodium 142 Potassium 3.9 Chloride 101 Carbon Dioxide 31 H BUN 11 Creatinine 0.74 Assessment and Plan Assessment Anesthesia Assessment: Chart Reviewed Documented by User: Jazzy Kim MD 01/10/24 10:31 HPI - Anesthesia Eval Anesthesia Pre-Procedure Meds Is the patient on any of the following meds?: GLP1/DPP4 (On semaglutide. Last dose 12/27/23) If yes to any meds - educate patient: Pt education - increased risk of aspiration and/or euvolemic DKA PMFSH Active Problems Active Problems: All Active Problems Back pain (Acute) Pre-op evaluation (Acute) GO (nonalcoholic steatohepatitis) (Acute) DIANA (obstructive sleep apnea) (Acute). Uses CPAP Right sided sciatica (Acute) Hyperlipidemia LDL goal <70 (Acute) Insomnia (Acute) Snoring (Acute) Hypersomnia (Acute) Frequent falls (Acute) Memory loss (Acute) Mild recurrent major depression (Acute) Low vitamin B12 level (Acute) Urge urinary incontinence (Acute) Insomnia (Acute) Generalized anxiety disorder (Acute) Overweight (BMI 25.0-29.9) (Acute) Asthma (Acute) Anxiety and depression (Acute) Obesity (BMI 30-39.9) (Acute) Type 2 diabetes mellitus with hyperglycemia (Acute) History of herniated intervertebral disc (Acute) GERD (gastroesophageal reflux disease) (Acute) Gastroparesis (Acute) Irritable bowel syndrome with diarrhea (Acute) Fibromyalgia (Acute) Type 2 diabetes mellitus with diabetic polyneuropathy (Acute) Hyperlipidemia LDL goal <70 (Acute) Type 2 diabetes mellitus with other diabetic kidney complication (Acute) Hypertension (Acute) Vitamin D insufficiency (Acute) Past Medical History Medical History Back pain Pre-op evaluation Physical exam Transaminitis Urinary incontinence Diabetes mellitus Tingling of both feet Bilateral leg and foot pain Lumbosacral strain Depression Insomnia Snoring Hypersomnia Urge urinary incontinence Anxiety and depression Obesity (BMI 30-39.9) Type 2 diabetes mellitus with hyperglycemia Fibromyalgia History of herniated intervertebral disc History of TIA (transient ischemic attack) Osteopenia Allergic rhinitis Migraine aura without headache Osteoarthritis Asthma Type 2 diabetes mellitus with diabetic polyneuropathy Hyperlipidemia LDL goal <70 Vitamin D insufficiency Hypertension Family History Family History Father Kidney failure Diabetes CVD (cardiovascular disease) Hypertension Mother Diabetes Hypertension Family history of problems with anesthesia: No Surgical History Surgical History History of carpal tunnel surgery History of cholecystectomy History of cervical biopsy H/O colonoscopy History of bilateral tubal ligation History of partial hysterectomy History of bladder suspension procedure History of appendectomy History of Problems with Anesthesia: No Social History Social History Housing: House Alcohol intake: never Patient Tobacco Use Status: Never used Tobacco e-Cigarette/Vaping Use: Never Used Second Hand Smoke Exposure: No Use of substances other than those prescribed or required for medical reasons: No Are you DNR?: No Advance Directives: No Advance Directives Information Provided: Yes service: No Current occupational status: retired Cognitive needs: No Hearing needs: No Vision needs: No Meds Allergies Allergy/AdvReac Type Severity Reaction Status Date / Time amoxicillin Allergy Unknown pruritus Verified 01/10/24 09:04 penicillin G Allergy Unknown pruritis Verified 01/10/24 09:04 duloxetine [From Cymbalta] AdvReac Intermediate palpitations Verified 01/10/24 09:04 and sob dulaglutide [Trulicity] AdvReac Unknown abdominal Verified 01/10/24 09:04 pain Home Medications ?Medication ?Instructions ?Recorded ?Confirmed ?Last Taken ?Type alcohol swabs pad topical TID 04/14/20 12/28/23 Unknown History loratadine 10 mg tablet 10 mg PO DAILY 04/14/20 01/10/24 01/08/24 History cyclobenzaprine 5 mg tablet 5 mg PO TID PRN 11/30/22 12/28/23 Unknown History Exam Height,Weight and Vital Signs: Height 5 ft 4 in Weight 72.575 kg Vital Signs Temp Pulse Resp BP Pulse Ox O2 Del Method 01/10/24 08:57 96.9 F 75 16 141/68 H 99 Room Air Pertinent Lab Results Pertinent Lab Results: Laboratory Tests 03/14/22 08/21/23 10:26 10:16 WBC 3.9 L Hgb 13.4 Hct 41.8 Plt Count 202 Sodium 142 Potassium 3.9 Chloride 101 Carbon Dioxide 31 H BUN 11 Creatinine 0.74 Lab Results 01/10/24 Range/Units 09:01 POC Glucose 152 H (60-115) mg/dL Airway Mallampati Class: II TM Dist: >3cm Neck ROM: Full Loose/Missing/Broken Teeth: Yes (Missing teeth back. Top front bonded. Denies broken or loose teeth) Heart: RRR Lungs: CTAB Assessment and Plan Assessment Anesthesia Assessment: Anesthesia Plan Discussed and Chart Reviewed Final Anesthetic Review Family History of Problems with Anesthesia: No History of Problems with Anesthesia: No NPO: Yes ASA Class: III Final Preanesthetic Review: No Changes in Pt Med Stat, Meds/Allgs Chart Reviewed, Consent Obtained/Reviewed and Anes Risks/Benef Reviewed Patient Risk: Intermediate Procedure Risk: Low Anesthetic Plan Anesthetic Plan: TIVA Disposition: Standard PACU
[2024-01-10 08:37] VITALS: BMI 27.5
[2024-01-10 08:57] VITALS: BP 141/68; PULSE 75; RESP 16; TEMP 36.1; O2SAT 99
[2024-01-10] MEDS: Lactated Ringers 1,000 ML 100 ML IVCONT (08:59)
[2024-01-10 09:05] LABS: Glucose, Whole Blood 152 mg/dL (60-115)
--- NOTE | 2024-01-10 10:17 | P.HPSUR_ITS ---
Pre-Procedural Eval Section A - 24 Hr Update-Section A only Date of Service: 01/10/24 Section B - Complete if H&P > 30 days Chief Complaint: Encounter for screening for malignant neoplasm of Relevant Family History (Specify if Yes): No Relevant Social History: None Present Medications: see Short Stay Collaborative assessment Medical History: Significant History (Back pain Pre-op evaluation Physical exam Transaminitis Urinary incontinence Diabetes mellitus Tingling of both feet Bilateral leg and foot pain Lumbosacral strain Depression Insomnia Snoring Hypersomnia Urge urinary incontinence Anxiety and depression Obesity (BMI 30- 39.9) Type 2 diabetes mellitus ) History of Previous Operations: Relevant previous surgery/procedure and date(s) (History of carpal tunnel surgery History of cholecystectomy History of cervical biopsy H/O colonoscopy History of bilateral tubal ligation History of partial hysterectomy History of bladder suspension procedure History of appendectomy) Allergies: Allergies Allergy/AdvReac Type Severity Reaction Status Date / Time amoxicillin Allergy Unknown pruritus Verified 01/10/24 09:04 penicillin G Allergy Unknown pruritis Verified 01/10/24 09:04 duloxetine [From Cymbalta] AdvReac Intermediate palpitations Verified 01/10/24 09:04 and sob dulaglutide [Trulicity] AdvReac Unknown abdominal Verified 01/10/24 09:04 pain Review of Systems Sugical H&P ROS: Negative: Constitution, Cardiovascular, Respiratory, Neurological, Psychiatric, Hem-Onc, Allergic/Immunologic, Gastrointestinal, Genitourinary, Musculoskeletal, Integumentary, Endocrine and Eyes/Ears/Nose/Throat Exam Surgical H&P Exam: Normal: HEENT, Normal: Heart, Normal: Lungs, Normal: Extremities, Normal: Abdomen, Normal: Skin and Normal: Neurological Plan Diagnosis/Plan: Unchanged I have reviewed the history and physical and performed a pertinent physical examination on my patient. No changes have occurred unless specified. Time Spent With Patient Time: Total time managing care of this patient today ____ minutes.
--- NOTE | 2024-01-10 11:30 | P.OPN-COLO_ITS ---
Colonoscopy Operative Note Operative Note Date of Service: 01/10/24 Narrative: Operative Information Procedure Description: Colonoscopy Indication: screening Anesthesia: MAC COLONOSCOPY Instrument: Olympus variable stiffness pediatric scope 190L Colonoscopy Monitoring: Vital signs and clinical assessment, continuous EKG monitoring, Pulse oximetry, Carbon Dioxide monitoring and blood pressure monitoring were done throughout the procedure. Colon withdrawal time was 10 minutes. Procedure: The patient was placed in the left lateral decubitis position and pre-procedure medications were administered. After a digital rectal examination of the ano-rectum, the video colonoscope was inserted into the rectum and advanced through the colon to the cecum/TI. The colonoscope was slowly withdrawn in a retrograde panoramic fashion and the colon mucosa was carefully examined including a retroflexed view of the rectum. Findings and interventions are described below. Procedure Difficulty: moderate, tortuous colon Findings: Terminal Ileum-normal Cecum:normal Right sided retroflexion- normal Ascending Colon: normal Transverse Colon -normal Descending Colon:normal Sigmoid Colon: normal Rectum: Retroflexion with small internal hemorrhoids seen, grade I Anorectum - normal Intervention: none Colon preparation: Lindsay Bowel Preparation Scale Right colon; 2 Transverse colon: 2 Left colon; 3 (0 = Unprepared colon segment with mucosa not seen due to solid stool that cannot be cleared. 1 = Portion of mucosa of the colon segment seen, but other areas of the colon segment not well seen due to staining, residual stool and/or opaque liquid. 2 = Minor amount of residual staining, small fragments of stool and/or opaque liquid, but mucosa of colon segment seen well. 3 = Entire mucosa of colon segment seen well with no residual staining, small fragments of stool or opaque liquid) Impression and Post Procedure Diagnosis: tortuous colon internal hemorrhoids Plan: High fiber diet leaflet Avoid straining at stool, epsom salts and sitz bath, anusol supps or cream Repeat Colonoscopy in 10 years or earlier if clinically indicated Above findings were reviewed with the patient and relevant handouts were provided if indicated.
[2024-01-10 11:34] VITALS: BP 102/61; PULSE 74; RESP 16; TEMP 36.5; O2SAT 98
[2024-01-10 11:49] VITALS: BP 115/64; PULSE 62; RESP 14; O2SAT 99
== END 2024-01-10 12:56 | disposition home or self-care (01) ==
PROVIDERS: PCP Internal Medicine; Visit Provider Internal Medicine Gastroenterology
PROC: 0DJD8ZZ Inspection of Lower Intestinal Tract, Via Natural or Artificial Opening Endoscopic (ICD-10-PCS; CPT 45378; principal; 2024-01-10 10:40)
DX: Z12.11 Encounter for screening for malignant neoplasm of colon (principal); K64.0 First degree hemorrhoids; Q43.8 Other specified congenital malformations of intestine; K58.0 Irritable bowel syndrome with diarrhea; K31.84 Gastroparesis; K21.9 Gastro-esophageal reflux disease without esophagitis; I10 Essential (primary) hypertension; M79.7 Fibromyalgia; J45.909 Unspecified asthma, uncomplicated; K75.81 Nonalcoholic steatohepatitis (NASH); F41.8 Other specified anxiety disorders; E11.65 Type 2 diabetes mellitus with hyperglycemia; R41.3 Other amnesia; Z86.73 Personal history of transient ischemic attack (TIA), and cerebral infarction without residual deficits; Z79.1 Long term (current) use of non-steroidal anti-inflammatories (NSAID); Z79.4 Long term (current) use of insulin; Z79.85 Long-term (current) use of injectable non-insulin antidiabetic drugs; Z79.899 Other long term (current) drug therapy; Z88.0 Allergy status to penicillin; Z88.1 Allergy status to other antibiotic agents; Z88.8 Allergy status to other drugs, medicaments and biological substances; Z98.890 Other specified postprocedural states
CPT/HCPCS: G0121; 82947; J2704; J2765

== ENCOUNTER → 2024-01-10 08:31 | Outpatient (BNV) | payer OTHER, SELFPAY | PROVIDERS: PCP Internal Medicine; Visit Provider Internal Medicine Gastroenterology | DX: Z12.11 Encounter for screening for malignant neoplasm of colon (principal); K64.8 Other hemorrhoids | CPT/HCPCS: G0121 ==

== ENCOUNTER 2024-01-15 16:16 | Outpatient (AMB) | payer OTHER, SELFPAY ==
--- NOTE | 2024-01-15 16:16 | A.OFFPC_ITS ---
Vital Signs 01/15/24 16:17 Height 5 ft 4 in Weight 156 lb BMI 26.8 BP 136/84 Blood Pressure Location Lt brachial Position Sitting Pulse 70 Pulse Source Pulse Oximeter Pulse Oximetry (%) 98 Oxygen Delivery Method Room Air Intake Visit Reasons: DM Silo Tender Required: No Accompanied by: Self / Same As Patient Allergies amoxicillin Allergy (Unknown, Verified 01/15/24 16:33) pruritus penicillin G Allergy (Unknown, Verified 01/15/24 16:33) pruritis duloxetine [From Cymbalta] Adverse Reaction (Intermediate, Verified 01/15/24 16:33) palpitations and sob dulaglutide [Trulicity] Adverse Reaction (Unknown, Verified 01/15/24 16:33) abdominal pain Medication List - Last Reconciled 01/15/24 by Jess Garza MD [adult diapers As directed] albuterol sulfate 90 mcg/actuation 2 puffs PO Q4-6H PRN alcohol swabs pad topical TID alosetron (Lotronex) 0.5 mg PO BID [bed rail As directed] blood pressure monitor As directed blood pressure monitor As directed blood sugar diagnostic (FreeStyle Lite Strips) As directed three times a day blood-glucose meter (FreeStyle Lite Meter kit) three times a day cholecalciferol (vitamin D3) 50 mcg PO DAILY 90 days clonazepam 0.5 mg PO DAILY PRN 30 days cyclobenzaprine 5 mg PO TID PRN ezetimibe 10 mg PO DAILY famotidine 40 mg PO BEDTIME [handheld showerhead As directed] hydroxyzine HCl 10 mg PO BEDTIME PRN 10 days ibuprofen 800 mg PO Q8H PRN 30 days incontinence pad, liner, disp Use 1 pad three times a day lancets (FreeStyle Lancets) As directed three time a day lisinopril-hydrochlorothiazide 20-12.5 mg 1 tab PO DAILY 90 days loratadine 10 mg PO DAILY metoclopramide HCl 10 mg PO QID 30 days miscellaneous medical supply 1 ea miscellaneous DAILY [non-slip rug for tub As directed] pantoprazole 40 mg PO DAILY [personal wipes As directed] [raised toilet seat As directed] rosuvastatin 40 mg PO DAILY semaglutide (Ozempic) 0.5 mg (0.736 mL) subcut QWEEK 90 days sertraline 150 mg (1.5 x 100 mg) PO DAILY Shower Chair As directed trazodone 100 mg PO BEDTIME 90 days underpads (Bed Underpads) As directed walker As directed walker (Ultra-Light Rollator misc) As directed Tobacco use date assessed: 08/06/23 Fall risk assessment: No Falls in past year Last assessed Fall Risk: 01/15/24 Dental Screening Dental Screen Date: 08/06/23 HPI HPI Comments History of Present Illness Details This is a 63-year-old female with diabetes mellitus type 2, hypertension, hyperlipidemia, and mild recurrent major depression that comes today for follow up on her conditions. A1c has improved and I will increase Ozempic. BP stable. LDL within goal. Depression stable with meds. She complaints of persistent headaches that has been present for over a month mostly occipital. [facility], [facility] Medical History Back pain Pre-op evaluation Physical exam Transaminitis Urinary incontinence Diabetes mellitus Tingling of both feet Bilateral leg and foot pain Lumbosacral strain Depression Insomnia Snoring Hypersomnia Urge urinary incontinence Anxiety and depression Obesity (BMI 30-39.9) Type 2 diabetes mellitus with hyperglycemia Fibromyalgia History of herniated intervertebral disc History of TIA (transient ischemic attack) Osteopenia Allergic rhinitis Migraine aura without headache Osteoarthritis Asthma Type 2 diabetes mellitus with diabetic polyneuropathy Hyperlipidemia LDL goal <70 Vitamin D insufficiency Hypertension Surgical History History of carpal tunnel surgery History of cholecystectomy History of cervical biopsy H/O colonoscopy History of bilateral tubal ligation History of partial hysterectomy History of bladder suspension procedure History of appendectomy Family History Father Kidney failure Diabetes CVD (cardiovascular disease) Hypertension Mother Diabetes Hypertension Social History Housing: House Alcohol intake: never Patient Tobacco Use Status: Never used Tobacco e-Cigarette/Vaping Use: Never Used Second Hand Smoke Exposure: No service: No Current occupational status: retired Cognitive needs: No Hearing needs: No Vision needs: No Questionnaire Thrive Questionnaire Date Thrive assessed: 01/22/24 I am a: Patient What is your living situation today?: I have a steady place to live Within the past 12 months, did the food you bought not last and you didn't have the money to get more?: Never true Within the past 12 months, did you worry whether your food would run out before you got money to buy more?: Never true Do you have trouble paying for medicines?: No Do you have trouble getting transportation to medical appointments?: No Do you have trouble paying your heating and electricity bill?: No Do you have trouble taking care of your child, family member or friend?: No Do you have trouble with day-to-day activities such as bathing, preparing meals, shopping, managing finances, etc.?: No Are you currently unemployed and looking for a job?: No Are you interested in more education?: No Please select the resources that you would like help with: None THRIVE Score: 0 AUDIT C Alcohol Use Questionnaire (AUDIT-C) 1. How often do you have a drink containing alcohol?: Never Total Score: 0 AMBROCIO-7 AMB Questionnaire AMBROCIO-7 Date AMBROCIO - 7 assessed: 08/06/23 Source: Developed by Drs. Agustin Caraballo, Annabella Dumont, Frank Means and colleagues, with an educational flash from [employer]. Review of Systems Const All systems reviewed & are unremarkable except as noted in HPI and below Card Denies chest pain at rest, Denies chest pain with activity, Denies edema, Denies irregular heart rhythm, Denies claudication, Denies dyspnea, Denies dyspnea on exertion, Denies orthopnea, Denies paroxysmal nocturnal dyspnea and Denies slow heart rate Resp Denies cough, Denies dyspnea and Denies dyspnea on exertion GI Denies abdominal pain, Denies change in bowel habits, Denies excessive flatus, Denies nausea and Denies vomiting Physical exam (Primary Care) Vital Signs: Last Vital Signs Pulse 70 01/15/24 16:17 BP 136/84 01/15/24 16:17 Pulse Ox 98 01/15/24 16:17 Oxygen Delivery Method Room Air 01/15/24 16:17 BMI result Body Mass Index 26.8 Tobacco/Smoking Status: Tobacco use Status Tobacco use date assessed 08/06/23 01/15/24 16:23 Patient Tobacco Use Status Never used Tobacco 01/15/24 16:23 Tobacco use type 11/30/23 12:48 e-Cigarette/Vaping Use Never Used 01/15/24 16:23 Thrive Assessment: Date of Thrive Assessment Date Thrive assessed 08/06/23 01/15/24 16:23 Resp Effort & Inspection: normal respiratory effort Auscultation: clear to auscultation bilaterally Cardio Jugular venous distension: no JVD Rate: regular rate Rhythm: regular rhythm Heart sounds: S1 normal heart sound present and S2 normal heart sound present Extrem General: Yes full ROM Results AMB Hemoglobin A1c AMB Hemoglobin A1c 7.8 % Last Edit by TEENA Ureña on 01/15/24 16:25 Results Reviewed Results Reviewed: Laboratory Last Values Hgb A1c (Clinic) 7.8 % (4.0-6.0) H 01/15/24 16:23 Assessment and Plan Assessment & Plan (1) Type 2 diabetes mellitus with hyperglycemia: Code(s): E11.65 - Type 2 diabetes mellitus with hyperglycemia Qualifiers: Diabetes mellitus [facility] insulin use: with [facility] use Qualified Code(s): E11.65 - Type 2 diabetes mellitus with hyperglycemia; Z79.4 - [facility] (current) use of insulin Plan: Increase Ozempic to 1 mg. A1c goal is equal or less than 7 %. (2) Hyperlipidemia LDL goal <70: Code(s): E78.5 - Hyperlipidemia, unspecified Plan: Continue statin. LDL goal is less than 70. (3) Hypertension: Code(s): I10 - Essential (primary) hypertension Qualifiers: Hypertension type: essential hypertension Qualified Code(s): I10 - Essential (primary) hypertension Plan: [id number]. BP goal is equal or less than 130/80. (4) Mild recurrent major depression: Code(s): F33.0 - Major depressive disorder, recurrent, mild Plan: Continue Sertraline. (5) Persistent headaches: Code(s): R51.9 - Headache, unspecified Plan: MRI jorje ordered. Orders: Orders AMB Hemoglobin A1c Today E11.29 - Type 2 diabetes mellitus with other diabetic kidney complication Comprehensive Met. 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 Discontinued semaglutide (Ozempic) Discontinued Reason: Patient Completed Course 0.5 mg (0.736 mL) subcut QWEEK 90 days 9.568 mL 1RF E11.9 - Type 2 diabetes mellitus without complications Coding Level of Care Code Est Pt Level 4 (77048) Complex EM visit Add On G2211 Diagnoses Type 2 diabetes mellitus with hyperglycemia, with long-term current use of insulin E11.65; Z79.4 Diabetes mellitus [facility] insulin use: 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
[2024-01-15 16:17] VITALS: BP 136/84; PULSE 70; O2SAT 98; BMI 26.8
== END 2024-01-15 16:48 | disposition home or self-care (01) ==
PROVIDERS: PCP Internal Medicine; Visit Provider Internal Medicine
DX: E11.65 Type 2 diabetes mellitus with hyperglycemia (principal); Z79.4 Long term (current) use of insulin; F33.0 Major depressive disorder, recurrent, mild; E11.29 Type 2 diabetes mellitus with other diabetic kidney complication; E78.5 Hyperlipidemia, unspecified; I10 Essential (primary) hypertension; R51.9 Headache, unspecified
CPT/HCPCS: 83036; 99214; G2211

== ENCOUNTER 2024-01-22 09:13 | Outpatient (REF) | payer OTHER, SELFPAY ==
[2024-01-22 10:23] LABS: Basophils Percent Auto 0.8 % (0-2); Eosinophils Percent Auto 1.2 % (0-4); Hematocrit 39.8 % (37.0-47.0); Hemoglobin 13.3 g/dl (12.0-16.0); Lymphocytes Absolute Auto 1.2 X10*3/uL (1.2-4.9); Lymphocytes Percent Auto 45.5 % (20-40); MANUAL DIFF FLAG SCAN; Mean Corpuscular HGB Conc 33.4 g/dl (31.0-35.0); Mean Corpuscular Hemoglobin 29.4 pg (27.0-33.0); Mean Corpuscular Volume 88.1 fL (80.0-98.0); Mean Platelet Volume 10.9 fL (9.4-12.3); Monocytes Absolute Auto 0.4 X10*3/uL (0.1-1.2); Monocytes Percent Auto 14.4 % (2-11); Neutrophils Percent Auto 38.1 % (45-73); Platelet Count 190 X10*3/uL (160-400); Red Blood Count 4.52 X10*6/uL (4.20-5.50); Red Cell Distribution Width 12.4 % (11.0-16.0); SCAN SMEAR FLAG 1; White Blood Count 2.6 X10*3/uL (4.8-10.8)
[2024-01-22 10:54] LABS: SLIDE REVIEW VERIFIED
[2024-01-22 11:02] LABS: Alanine Aminotransferase 47 U/L (0-31); Albumin Level 4.4 g/dL (3.5-5.0); Alkaline Phosphatase 84 U/L (39-117); Anion Gap 12 (12-20); Aspartate Amino Transferase 38 U/L (5-31); Bilirubin Total 0.5 mg/dL (0.0-1.0); Blood Urea Nitrogen 10 mg/dL (9-16); Calcium 10.2 mg/dL (8.4-10.2); Carbon Dioxide 30 mmol/L (22-29); Chloride 101 mmol/L (96-108); Cholesterol 124 mg/dL (<200); Estimated Glomerular Filt Rate > 60; Glucose Fasting 191 mg/dL (60-99); Glucose Random 191 mg/dL (60-115); HDL Cholesterol 57 mg/dL (>40); LDL Cholesterol Calculated 56 mg/dL (<100); Potassium 3.8 mmol/L (3.3-5.1); Sodium 139 mmol/L (135-145); Total Protein 8.2 g/dL (6.5-8.0); Triglycerides 57 mg/dL (<150)
[2024-01-22 11:16] LABS: Vitamin D 25-OH Total 36.9 ng/mL (>30)
[2024-01-22 11:17] LABS: Creatinine Urine 268.23 mg/dL; Microalbum/Creatinine Ratio Ur 14.1 ug/mg cr (<30)
== END 2024-01-22 09:14 | disposition home or self-care (01) ==
LOC: HO.LAB 09:13
PROVIDERS: PCP Internal Medicine; Visit Provider Internal Medicine
DX: E11.65 Type 2 diabetes mellitus with hyperglycemia (principal); D64.9 Anemia, unspecified; E66.9 Obesity, unspecified; Z79.4 Long term (current) use of insulin; E78.5 Hyperlipidemia, unspecified; E55.9 Vitamin D deficiency, unspecified
CPT/HCPCS: 36415; 80053; 80061; 82043; 82306; 82570; 85025

== ENCOUNTER 2024-01-29 09:00 | Outpatient (RCR) | payer OTHER, SELFPAY | END 2024-01-29 13:51 | disposition home or self-care (01) | LOC: HO.PT 09:00 | PROVIDERS: PCP Internal Medicine; Visit Provider Internal Medicine | DX: M54.9 Dorsalgia, unspecified (principal) | CPT/HCPCS: 97110; 97162 ==

== ENCOUNTER 2024-01-29 14:07 | Outpatient (AMB) | payer OTHER, SELFPAY ==
[2024-01-29 14:10] VITALS: BP 133/65; PULSE 80; BMI 27.2
--- NOTE | 2024-01-29 14:10 | MHC.OFFVIS ---
Vital Signs 01/29/24 14:10 Height 5 ft 4 in Weight 158 lb 4.67 oz BMI 27.2 BP 133/65 Blood Pressure Location Lt brachial Position Sitting Pulse 80 Intake Visit Reasons: s/p colonoscopy Intake Note: Saniya presents in the office as a follow up colonoscopy. CC: was placed on ozempic - states every week upset her stomach so she does every 2 weeks. She is here for results for colonoscopy. Mobile Application Development Lead Required: Yes Mobile Application Development Lead Name: Miguel [id number] Allergies amoxicillin Allergy (Unknown, Verified 01/29/24 14:11) pruritus penicillin G Allergy (Unknown, Verified 01/29/24 14:11) pruritis duloxetine [From Cymbalta] Adverse Reaction (Intermediate, Verified 01/29/24 14:11) palpitations and sob dulaglutide [Trulicity] Adverse Reaction (Unknown, Verified 01/29/24 14:11) abdominal pain HPI HPI s/p colonoscopy: Details: Assessment & Plan (1) Irritable bowel syndrome with diarrhea: Comment: diarrhea more dominant, but at times becomes constipated, Pattern varies. Will trial Senna prn constipation and daily fiber supplement. Bentyl on diarrhea/ cramping days. Has an element of post cholecystectomy syndrome Code(s): K58.0 - Irritable bowel syndrome with diarrhea Category: Medical (2) Gastroparesis: Code(s): K31.84 - Gastroparesis Category: Medical (3) GERD (gastroesophageal reflux disease): Code(s): K21.9 - Gastro-esophageal reflux disease without esophagitis Category: Medical Qualifiers: Esophagitis presence: without esophagitis Qualified Code(s): K21.9 - Gastro-esophageal reflux disease without esophagitis Plan Afghan #[id number] Baljeet After her 4 days of N/V/D it all finally resolved. I am now suspecting Norovirus, as this has been dx'ed in several of my patients in the last couple of weeks. With this she now feels stable on her current GI regimen. She continues on her famotidine in the evening, pantoprazole in the morning and her Reglan 10 mg 4 times a day with good control of her symptoms and no adverse effects. She already has an appointment in December with me after the colonoscopy so we will keep that going forward. COLONOSCOPY 01/10/24 Findings: Terminal Ileum-normal Cecum:normal Right sided retroflexion- normal Ascending Colon: normal Transverse Colon -normal Descending Colon:normal Sigmoid Colon: normal Rectum: Retroflexion with small internal hemorrhoids seen, grade I Anorectum - normal Intervention: none Impression and Post Procedure Diagnosis: tortuous colon internal hemorrhoids Plan: High fiber diet leaflet Avoid straining at stool, epsom salts and sitz bath, anusol supps or cream Repeat Colonoscopy in 10 years or earlier if clinically indicated BIOPSY. TODAY'S VISIT Afghan #Jean Mar She tells me that she has a family history of polyps in her sister. Because of this we will repeat the procedure in 5 years. The procedure was well tolerated. The results were explained and the patient is agreeable to the follow-up interval as stated. The bowel pattern has returned to normal. Education was provided to tell any 1st degree relatives about their findings to be sure that they are screened by age 45. Educated that they will be put on a recall list when it is time for their repeat scope but should they move out of state or away from the hospital they will need to remember along with their primary to repeat the procedure in a timely fashion to avoid any adverse complications. She continues on her famotidine in the evening, pantoprazole in the morning and her Reglan 10 mg 4 times a day with good control of her symptoms and no adverse effects. she says her Ozempic is giving her CIC, she has to push and she has a lot of rectal bleeding r/t hard stool. She always had diarrhea in the past, but she is not taking Lotronex. She says they stopped her combination med with metformin (Xigduo XR) and her sugars have been running high. Her PCP has not titrated the dose recently and she is waiting for a new coater. Trial of senna 2 tabs qhs and titrate. ROV 4 weeks. [facility] Medical History (Updated 01/29/24 @ 14:35 by DAMIAN Ryan) Irritable bowel syndrome with diarrhea Back pain Pre-op evaluation Physical exam Transaminitis Urinary incontinence Diabetes mellitus Tingling of both feet Bilateral leg and foot pain Lumbosacral strain Depression Insomnia Snoring Hypersomnia Urge urinary incontinence Anxiety and depression Obesity (BMI 30-39.9) Type 2 diabetes mellitus with hyperglycemia Fibromyalgia History of herniated intervertebral disc History of TIA (transient ischemic attack) Osteopenia Allergic rhinitis Migraine aura without headache Osteoarthritis Asthma Type 2 diabetes mellitus with diabetic polyneuropathy Hyperlipidemia LDL goal <70 Vitamin D insufficiency Hypertension Surgical History History of carpal tunnel surgery History of cholecystectomy History of cervical biopsy H/O colonoscopy History of bilateral tubal ligation History of partial hysterectomy History of bladder suspension procedure History of appendectomy Family History Father Kidney failure Diabetes CVD (cardiovascular disease) Hypertension Mother Diabetes Hypertension Social History Housing: House Alcohol intake: never Patient Tobacco Use Status: Never used Tobacco e-Cigarette/Vaping Use: Never Used Second Hand Smoke Exposure: No service: No Current occupational status: retired Cognitive needs: No Hearing needs: No Vision needs: No Review of Systems Const Denies fatigue, Denies fever(s), Denies night sweats, Denies poor appetite and Denies weight loss ENT Reports Normal hearing present, Denies dental pain, Denies dysphagia, Denies hearing loss, Denies mouth pain, Denies odynophagia, Denies throat swelling, Denies tongue swelling and Reports other (Dentition adequate) Card Reports no additional complaints Resp Reports no additional complaints GI Details: Denies abdominal pain, Denies melena, Reports bloating, Reports hematochezia, Reports constipation, Denies GI cramping, Denies dysphagia, Denies excessive flatus, Reports early satiety, Reports heartburn, Denies diarrhea, Denies nausea, Denies odynophagia, Denies vomiting and Denies hematemesis Skin/Breast Denies pruritus, Denies lesions, Denies rash and Denies jaundice Neuro Reports Normal hearing present and Denies Abnormal speech present Endo Denies fatigue Aller/Immun Denies throat swelling and Denies tongue swelling Physical Exam Vital Signs: Last Vital Signs Pulse 80 01/29/24 14:10 BP 133/65 01/29/24 14:10 BMI result Body Mass Index 27.2 Const General: cooperative, no acute distress, well developed and well groomed Nutritional Appearance: average body habitus and well nourished Orientation/consciousness: oriented to person, oriented to place and oriented to time Limitations: language barrier HEENT Head: Yes normocephalic and Yes atraumatic Eyes General: appearance normal, both eyes and all related structures Pupils: Equal, round and reactive pupils present Neck Neck: Yes normal visual inspection and Yes no lymphadenopathy Thyroid: Thyroid normal Resp Effort & Inspection: normal respiratory effort and able to speak in complete sentences Auscultation: clear to auscultation bilaterally Cardio Rate: regular rate Rhythm: regular rhythm Heart sounds: Normal, physiologic split S2 sound present Peripheral pulses: radial pulses present and posterior tibial pulses present GI Inspection: No distended and No Abdominal panniculus present Palpation (GI): Soft to palpation, nontender, no guarding, not rigid and No hepatosplenomegaly present Percussion: Yes normal to percussion Auscultation: normal bowel sounds Rectal Exam - Female: deferred Skin General skin exam: no rashes or lesions noted, turgor normal, skin not dry, no jaundice, No spider nevi and no striae Rashes: no rashes Nails: normal Neuro General: oriented to person, oriented to place and oriented to time Cranial nerves: Yes Equal, round and reactive pupils present and Yes Normal hearing present Speech: No Abnormal speech present Extrem General: Yes normal to inspection, No clubbing, No cyanosis and No edema Psych Appearance: grossly normal and well kempt Mental Status: mental status grossly normal Speech and movement: Normal speech and movement present Affect: normal affect Attitude: cooperative Thought process: Normal thought process present and not confabulating Thought content: Normal thought content present Insight: Limited insight present (Psych) Judgement: Limited judgement present (Psych) Results Reviewed Results Reviewed: COLONOSCOPY 01/10/24 Findings: Terminal Ileum-normal Cecum:normal Right sided retroflexion- normal Ascending Colon: normal Transverse Colon -normal Descending Colon:normal Sigmoid Colon: normal Rectum: Retroflexion with small internal hemorrhoids seen, grade I Anorectum - normal Intervention: none Impression and Post Procedure Diagnosis: tortuous colon internal hemorrhoids Plan: High fiber diet leaflet Avoid straining at stool, epsom salts and sitz bath, anusol supps or cream Repeat Colonoscopy in 10 years or earlier if clinically indicated Assessment & Plan Assessment & Plan (1) Family history of polyps in the colon: Comment: sister, and maternal uncle crc Code(s): Z83.719 - Family history of colon polyps, unspecified Category: Medical (2) Constipation: Code(s): K59.00 - Constipation, unspecified Category: Medical Plan Afghan #Jean Live She tells me that she has a family history of polyps in her sister. Because of this we will repeat the procedure in 5 years. The procedure was well tolerated. The results were explained and the patient is agreeable to the follow-up interval as stated. The bowel pattern has returned to normal. Education was provided to tell any 1st degree relatives about their findings to be sure that they are screened by age 45. Educated that they will be put on a recall list when it is time for their repeat scope but should they move out of state or away from the hospital they will need to remember along with their primary to repeat the procedure in a timely fashion to avoid any adverse complications. She continues on her famotidine in the evening, pantoprazole in the morning and her Reglan 10 mg 4 times a day with good control of her symptoms and no adverse effects. she says her Ozempic is giving her CIC, she has to push and she has a lot of rectal bleeding r/t hard stool. She always had diarrhea in the past, but she is not taking Lotronex. She says they stopped her combination med with metformin (Xigduo XR) and her sugars have been running high. Her PCP has not titrated the dose recently and she is waiting for a new coater. Trial of senna 2 tabs qhs and titrate. ROV 4 weeks. Medications: New sennosides (Senna Laxative) 17.2 mg (2 x 8.6 mg) PO BEDTIME 60 tabs 6RF K59.00 - Constipation, unspecified Discontinued alosetron (Lotronex) Discontinued Reason: Doctor's Order 0.5 mg PO BID 60 tabs 6RF K58.0 - Irritable bowel syndrome with diarrhea Coding Level of Care Code Est Pt Level 4 (25279) Diagnoses Family history of polyps in the colon Z83.719 Constipation K59.00
== END 2024-01-29 14:47 | disposition home or self-care (01) ==
PROVIDERS: PCP Internal Medicine; Visit Provider Nurse Practitioner
DX: Z83.719 Family history of colon polyps, unspecified (principal); K59.00 Constipation, unspecified
CPT/HCPCS: 99214

== ENCOUNTER → 2024-01-29 14:07 | Outpatient (BNVA) | payer OTHER, SELFPAY | PROVIDERS: PCP Internal Medicine; Visit Provider Nurse Practitioner | DX: K58.0 Irritable bowel syndrome with diarrhea (principal); K58.1 Irritable bowel syndrome with constipation; K31.84 Gastroparesis; K21.9 Gastro-esophageal reflux disease without esophagitis; Z71.2 Person consulting for explanation of examination or test findings; Z83.719 Family history of colon polyps, unspecified | CPT/HCPCS: 99212 ==

== ENCOUNTER 2024-05-23 14:33 | Outpatient (REF) | payer OTHER, SELFPAY ==
--- NOTE | ~2024-05-23 | US_ITS ---
EXAMINATION: US RETROPERITONEAL LIMITED (RENAL ONLY) CLINICAL INFORMATION: Gross hematuria. COMPARISON: Abdomen ultrasound 04/16/2023 and 11/18/2015. X-ray KUB 03/11/2019. CT abdomen and pelvis 12/27/2018. TECHNIQUE: Real-time imaging of the kidneys. FINDINGS: RIGHT KIDNEY: 11.0 x 5.3 x 5.4 cm (SAG x AP x TRV). The kidney is normal in size, contour, and echogenicity. Renal cortical thickness is normal. No calculi or focal parenchymal lesions. No hydronephrosis. LEFT KIDNEY: 12.8 x 5.3 x 5.5 cm (SAG x AP x TRV). The kidney is normal in size, contour, and echogenicity. Renal cortical thickness is normal. No renal calculi or hydronephrosis. At the interpolar aspect, an 8 mm benign, simple cyst is seen, for which no imaging follow-up is recommended. US/US renal BI IMPRESSION: Unremarkable examination. Electronically signed by: Carlos Eduardo Fairbanks MD 05/25/2024 09:22 PM EST
[2024-05-23 15:37] LABS: Appearance Urine Clear; Color Urine Yellow; Glucose Urine UA >=1000 mg/dL (Negative); Leukocyte Esterase Urine Small (1+) (Negative); Nitrite Urine Negative (Negative); Specific Gravity - Urine 1.025 (1.005-1.025); UMIC TRIGGER UACC YES; Urine Blood Negative (Negative); Urine Ketones Negative (Negative); Urine Protein Trace mg/dL (Neg-Trace)
[2024-05-23 15:45] LABS: Bacteria Urine None Seen (None Seen); Hyaline Casts Urine 0-2 /LPF (0-2); RBC Urine 0-2 /HPF (0-2); Squamous Epithelial Cell Urine 0-2 /HPF (0-2); UACC Culture Trigger YES; WBC Urine >50 /HPF (0-5)
== END 2024-05-23 14:34 | disposition home or self-care (01) ==
LOC: HO.US 14:33
PROVIDERS: PCP Internal Medicine; Visit Provider Internal Medicine
DX: R31.0 Gross hematuria (principal)
CPT/HCPCS: 76775; 81001; 87086; 87088; 87147; 87186

== ENCOUNTER 2024-07-02 18:18 | Outpatient (REF) | payer OTHER, SELFPAY | END 2024-07-02 18:19 | disposition home or self-care (01) | LOC: HO.MRI 18:18 | PROVIDERS: PCP Internal Medicine; Visit Provider Internal Medicine | DX: R51.9 Headache, unspecified (principal) | CPT/HCPCS: 70551 ==

== ENCOUNTER 2024-07-10 11:15 | Outpatient (REF) | payer OTHER, SELFPAY ==
[2024-07-10 11:31] LABS: MANUAL DIFF FLAG NO
[2024-07-10 12:05] LABS: Basophils Percent Auto 0.6 % (0-2); Eosinophils Percent Auto 0.4 % (0-4); Hematocrit 39.8 % (37.0-47.0); Hemoglobin 12.9 g/dl (12.0-16.0); Imm Gran Abs Auto 0.02 X10*3/uL (0.00-0.03); Imm Gran Pct Auto 0.3 % (0.0-0.4); Lymphocytes Percent Auto 13.4 % (20-40); Mean Corpuscular HGB Conc 32.4 g/dl (31.0-35.0); Mean Corpuscular Hemoglobin 29.1 pg (27.0-33.0); Mean Corpuscular Volume 89.6 fL (80.0-98.0); Mean Platelet Volume 11.2 fL (9.4-12.3); Monocytes Absolute Auto 0.4 X10*3/uL (0.1-1.2); Monocytes Percent Auto 5.8 % (2-11); Neutrophils Absolute Auto 5.7 x10*3/uL (2.0-8.3); Neutrophils Percent Auto 79.5 % (45-73); Platelet Count 216 X10*3/uL (160-400); Red Blood Count 4.44 X10*6/uL (4.20-5.50); Red Cell Distribution Width 13.5 % (11.0-16.0); White Blood Count 7.2 X10*3/uL (4.8-10.8)
[2024-07-10 12:14] LABS: Appearance Urine Clear; Color Urine Yellow; Glucose Urine UA >=1000 mg/dL (Negative); Leukocyte Esterase Urine Trace (Negative); Nitrite Urine Positive (Negative); PH 5.5 (5.0-9.0); Specific Gravity - Urine >= 1.030 (1.005-1.025); UMIC TRIGGER UACC YES; Urine Blood Negative (Negative); Urine Ketones Trace mg/dL (Negative); Urine Protein Negative (Neg-Trace)
[2024-07-10 12:16] LABS: Bacteria Urine 4+ (None Seen); Hyaline Casts Urine 0-2 /LPF (0-2); RBC Urine 0-2 /HPF (0-2); UACC Culture Trigger YES; WBC Urine 21-50 /HPF (0-5)
[2024-07-10 12:36] LABS: Alanine Aminotransferase 36 U/L (0-31); Albumin Level 4.4 g/dL (3.5-5.0); Anion Gap 13 (12-20); Aspartate Amino Transferase 42 U/L (5-31); Bilirubin Total 0.4 mg/dL (0.0-1.0); Blood Urea Nitrogen 22 mg/dL (9-16); Calcium 10.2 mg/dL (8.4-10.2); Carbon Dioxide 29 mmol/L (22-29); Chloride 102 mmol/L (96-108); Cholesterol 138 mg/dL (<200); Estimated Glomerular Filt Rate > 60; Glucose Fasting 163 mg/dL (60-99); HDL Cholesterol 60 mg/dL (>40); LDL Cholesterol Calculated 61 mg/dL (<100); Potassium 4.2 mmol/L (3.3-5.1); Sodium 140 mmol/L (135-145); Total Protein 8.6 g/dL (6.5-8.0); Triglycerides 88 mg/dL (<150)
[2024-07-10 12:47] LABS: Creatinine Urine 97.89 mg/dL; Microalbum/Creatinine Ratio Ur 31.6 ug/mg cr (<30)
[2024-07-10 12:56] LABS: Alkaline Phosphatase 78 U/L (39-117)
[2024-07-10 12:59] LABS: Vitamin D 25-OH Total 44.5 ng/mL (>30)
[2024-07-10 13:03] LABS: Folate 9.3 ng/mL (> or = 4.0); Vitamin B12 514 pg/mL (200-900)
== END 2024-07-10 11:16 | disposition home or self-care (01) ==
LOC: HO.LAB 11:15
PROVIDERS: PCP Internal Medicine; Visit Provider Internal Medicine
DX: D64.9 Anemia, unspecified (principal); E78.5 Hyperlipidemia, unspecified; R80.9 Proteinuria, unspecified; E53.8 Deficiency of other specified B group vitamins; E55.9 Vitamin D deficiency, unspecified
CPT/HCPCS: 36415; 80053; 80061; 81001; 81003; 82043; 82306; 82570; 82607; 82746; 85025; 87086

== ENCOUNTER 2024-08-25 14:03 | Outpatient (REF) | payer OTHER, SELFPAY | END 2024-08-25 14:04 | disposition home or self-care (01) | LOC: HO.MAMMO 14:03 | PROVIDERS: PCP Internal Medicine; Visit Provider Internal Medicine | DX: Z12.31 Encounter for screening mammogram for malignant neoplasm of breast (principal) | CPT/HCPCS: 77063; 77067 ==

== ENCOUNTER → 2024-08-25 14:30 | Outpatient (BNV) | payer OTHER, SELFPAY | PROVIDERS: PCP Internal Medicine; Visit Provider Internal Medicine | DX: Z12.31 Encounter for screening mammogram for malignant neoplasm of breast (principal) | CPT/HCPCS: 77063; 77067 ==

== ENCOUNTER 2024-09-22 16:14 | Outpatient (AMB) | payer OTHER, SELFPAY ==
--- NOTE | 2024-09-22 16:25 | AM.OFFVISNUR ---
Intake Visit Reasons: TB Test Allergies amoxicillin Allergy (Unknown, Verified 01/29/24 14:11) pruritus penicillin G Allergy (Unknown, Verified 01/29/24 14:11) pruritis duloxetine [From Cymbalta] Adverse Reaction (Intermediate, Verified 01/29/24 14:11) palpitations and sob dulaglutide [Trulicity] Adverse Reaction (Unknown, Verified 01/29/24 14:11) abdominal pain Office Meds tuberculin PPD 5 tub. 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
== END 2024-09-22 16:26 | disposition home or self-care (01) ==
PROVIDERS: PCP Internal Medicine; Visit Provider Internal Medicine
DX: Z11.1 Encounter for screening for respiratory tuberculosis (principal)

== ENCOUNTER → 2024-09-22 16:14 | Outpatient (BNVA) | payer OTHER, SELFPAY | PROVIDERS: PCP Internal Medicine; Visit Provider Internal Medicine | DX: Z11.1 Encounter for screening for respiratory tuberculosis (principal) | CPT/HCPCS: 86580 ==

== ENCOUNTER 2024-10-28 12:18 | Outpatient (AMB) | payer OTHER, SELFPAY ==
[2024-10-28 12:23] VITALS: BP 119/66; PULSE 81; BMI 28.3
--- NOTE | 2024-10-28 12:23 | MHC.OFFVIS ---
Vital Signs 10/28/24 12:23 Height 5 ft 4 in Weight 164 lb 14.492 oz BMI 28.3 BP 119/66 Blood Pressure Location Lt brachial Position Sitting Pulse 81 Intake Visit Reasons: upset stomach Intake Note: Saniya presents in office today in follow up for upset stomach . CC: Patient c/o diarrhea, heartburn, burning and pain from stomach, and acid reflux. Wafer Fab Operator Required: Yes Accompanied by: Self / Same As Patient Allergies amoxicillin Allergy (Unknown, Verified 10/28/24 12:29) pruritus penicillin G Allergy (Unknown, Verified 10/28/24 12:29) pruritis duloxetine [From Cymbalta] Adverse Reaction (Intermediate, Verified 10/28/24 12:29) palpitations and sob dulaglutide [Trulicity] Adverse Reaction (Unknown, Verified 10/28/24 12:29) abdominal pain HPI HPI upset stomach: Details: Assessment & Plan (1) Family history of polyps in the colon: Comment: sister, and maternal uncle crc Code(s): Z83.719 - Family history of colon polyps, unspecified Category: Medical (2) Constipation: Code(s): K59.00 - Constipation, unspecified Category: Medical Plan [place]cu[place] #Jean Live She tells me that she has a family history of polyps in her sister. Because of this we will repeat the procedure in 5 years. The procedure was well tolerated. The results were explained and the patient is agreeable to the follow-up interval as stated. The bowel pattern has returned to normal. Education was provided to tell any 1st degree relatives about their findings to be sure that they are screened by age 45. Educated that they will be put on a recall list when it is time for their repeat scope but should they move out of state or away from the hospital they will need to remember along with their primary to repeat the procedure in a timely fashion to avoid any adverse complications. She continues on her famotidine in the evening, pantoprazole in the morning and her Reglan 10 mg 4 times a day with good control of her symptoms and no adverse effects. she says her Ozempic is giving her CIC, she has to push and she has a lot of rectal bleeding r/t hard stool. She always had diarrhea in the past, but she is not taking Lotronex. She says they stopped her combination med with metformin (Xigduo XR) and her sugars have been running high. Her PCP has not titrated the dose recently and she is waiting for a new disability hearing officer. Trial of senna 2 tabs qhs and titrate. ROV 4 weeks. Medications: New sennosides (Senna Laxative) 17.2 mg (2 x 8.6 mg) PO BEDTIME 60 tabs 6RF K59.00 - Constipation, unspecified Discontinued alosetron (Lotronex) Discontinued Reason: Doctor's Order 0.5 mg PO BID 60 tabs 6RF K58.0 - Irritable bowel syndrome with diarrhea TODAY'S VISIT [place]cuadorean #Edyta Mar She continues on her famotidine in the evening, pantoprazole in the morning and her Reglan 10 mg 4 times a day She is again struggling with abdominal pain, nausea and diarrhea and severe gases and bloating. The pain is mostly just to the left of midline in the upper abd under ribs. She is taking 1 senna a night, and I advise her to stop the senna completely since the diarrhea is watery. It appears she never received the lotronex, so will re try to get this at 0.5mg bid. Next avail. [facility] Medical History (Updated 10/28/24 @ 14:00 by ADMIAN Ryan) Irritable bowel syndrome with diarrhea Constipation Pre-op evaluation Back pain Physical exam Transaminitis Urinary incontinence Diabetes mellitus Tingling of both feet Bilateral leg and foot pain Lumbosacral strain Depression Insomnia Snoring Hypersomnia Urge urinary incontinence Anxiety and depression Obesity (BMI 30-39.9) Type 2 diabetes mellitus with hyperglycemia Fibromyalgia History of herniated intervertebral disc History of TIA (transient ischemic attack) Osteopenia Allergic rhinitis Migraine aura without headache Osteoarthritis Asthma Type 2 diabetes mellitus with diabetic polyneuropathy Hyperlipidemia LDL goal <70 Vitamin D insufficiency Hypertension Surgical History History of carpal tunnel surgery History of cholecystectomy History of cervical biopsy H/O colonoscopy History of bilateral tubal ligation History of partial hysterectomy History of bladder suspension procedure History of appendectomy Family History Father Kidney failure Diabetes CVD (cardiovascular disease) Hypertension Mother Diabetes Hypertension Social History Housing: House Alcohol intake: never Patient Tobacco Use Status: Never used Tobacco e-Cigarette/Vaping Use: Never Used Second Hand Smoke Exposure: No service: No Current occupational status: retired Cognitive needs: No Hearing needs: No Vision needs: No Review of Systems Const Denies fatigue, Denies fever(s), Denies night sweats, Denies poor appetite and Denies weight loss ENT Reports Normal hearing present, Denies dental pain, Denies dysphagia, Denies hearing loss, Denies mouth pain, Denies odynophagia, Denies throat swelling, Denies tongue swelling and Reports other (Dentition adequate) Card Reports no additional complaints Resp Reports no additional complaints GI Details: Reports abdominal pain, Denies melena, Reports bloating, Denies hematochezia, Denies constipation, Denies GI cramping, Denies dysphagia, Denies excessive flatus, Denies early satiety, Reports heartburn, Reports diarrhea, Reports nausea, Denies odynophagia, Denies vomiting and Denies hematemesis Skin/Breast Denies pruritus, Denies lesions, Denies rash and Denies jaundice Neuro Reports Normal hearing present and Denies Abnormal speech present Endo Denies fatigue Aller/Immun Denies throat swelling and Denies tongue swelling Physical Exam Vital Signs: Last Vital Signs Pulse 81 10/28/24 12:23 BP 119/66 10/28/24 12:23 BMI result Body Mass Index 28.3 Const General: cooperative, no acute distress, well developed and well groomed Nutritional Appearance: average body habitus and well nourished Orientation/consciousness: oriented to person, oriented to place and oriented to time Limitations: language barrier HEENT Head: Yes normocephalic and Yes atraumatic Eyes General: appearance normal, both eyes and all related structures Pupils: Equal, round and reactive pupils present Neck Neck: Yes normal visual inspection and Yes no lymphadenopathy Thyroid: Thyroid normal Resp Effort & Inspection: normal respiratory effort and able to speak in complete sentences Auscultation: clear to auscultation bilaterally Cardio Rate: regular rate Rhythm: regular rhythm Heart sounds: Normal, physiologic split S2 sound present Peripheral pulses: radial pulses present and posterior tibial pulses present GI Inspection: Yes distended, No Abdominal panniculus present and Yes obesity Palpation (GI): Soft to palpation, nontender, no guarding, not rigid and No hepatosplenomegaly present Percussion: Yes normal to percussion Auscultation: normal bowel sounds Rectal Exam - Female: deferred Skin General skin exam: no rashes or lesions noted, turgor normal, skin not dry, no jaundice, No spider nevi and no striae Rashes: no rashes Nails: normal Neuro General: oriented to person, oriented to place and oriented to time Cranial nerves: Yes Equal, round and reactive pupils present and Yes Normal hearing present Speech: No Abnormal speech present Extrem General: Yes normal to inspection, No clubbing, No cyanosis and No edema Psych Appearance: grossly normal and well kempt Mental Status: mental status grossly normal Speech and movement: Normal speech and movement present Affect: normal affect Attitude: cooperative Thought process: Normal thought process present and not confabulating Thought content: Normal thought content present Insight: Limited insight present (Psych) Judgement: Limited judgement present (Psych) Assessment & Plan Assessment & Plan (1) Irritable bowel syndrome with diarrhea: Comment: diarrhea more dominant, but at times becomes constipated, Pattern varies. Will trial Senna prn constipation and daily fiber supplement. Bentyl on diarrhea/ cramping days. Has an element of post cholecystectomy syndrome Code(s): K58.0 - Irritable bowel syndrome with diarrhea Category: Medical (2) GERD (gastroesophageal reflux disease): Code(s): K21.9 - Gastro-esophageal reflux disease without esophagitis Category: Medical Qualifiers: Esophagitis presence: without esophagitis Qualified Code(s): K21.9 - Gastro-esophageal reflux disease without esophagitis (3) Gastroparesis: Code(s): K31.84 - Gastroparesis Category: Medical Plan [place] #Edyta Live She continues on her famotidine in the evening, pantoprazole in the morning and her Reglan 10 mg 4 times a day She is again struggling with abdominal pain, nausea and diarrhea and severe gases and bloating. The pain is mostly just to the left of midline in the upper abd under ribs. She is taking 1 senna a night, and I advise her to stop the senna completely since the diarrhea is watery. It appears she never received the lotronex, so will re try to get this at 0.5mg bid. At the next appointment consider repeating ultrasound and labs to monitor her GO. Next avail. Medications: New alosetron (Lotronex) 0.5 mg PO BID 60 tabs 11RF K58.0 - Irritable bowel syndrome with diarrhea simethicone (Gas Relief (simethicone)) 125 mg PO BID-QID 120 tabs 11RF abdominal distention Refilled famotidine 40 mg PO BEDTIME 90 tabs 2RF K21.9 - Gastro-esophageal reflux disease without esophagitis pantoprazole 40 mg PO DAILY 90 tabs 1RF K21.9 - Gastro-esophageal reflux disease without esophagitis metoclopramide HCl 10 mg PO QID 120 tabs 6RF 30 days K31.84 - Gastroparesis On Hold sennosides (Senna Laxative) Hold Comment: Doctor's Order 17.2 mg (2 x 8.6 mg) PO BEDTIME 60 tabs 6RF K59.00 - Constipation, unspecified Coding Level of Care Code Est Pt Level 3 (38235) Diagnoses Irritable bowel syndrome with diarrhea K58.0 Gastroesophageal reflux disease without esophagitis K21.9 Esophagitis presence: without esophagitis Gastroparesis K31.84
== END 2024-10-28 13:16 | disposition home or self-care (01) ==
LOC: HO.HGI 12:18
PROVIDERS: PCP Internal Medicine; Visit Provider Nurse Practitioner
DX: K58.0 Irritable bowel syndrome with diarrhea (principal); K21.9 Gastro-esophageal reflux disease without esophagitis; K31.84 Gastroparesis
CPT/HCPCS: 99213

== ENCOUNTER → 2024-10-28 12:18 | Outpatient (BNVA) | payer OTHER, SELFPAY | PROVIDERS: PCP Internal Medicine; Visit Provider Nurse Practitioner | DX: K21.9 Gastro-esophageal reflux disease without esophagitis (principal); K58.0 Irritable bowel syndrome with diarrhea; K58.1 Irritable bowel syndrome with constipation; K31.84 Gastroparesis; Z83.719 Family history of colon polyps, unspecified | CPT/HCPCS: 99212 ==

== ENCOUNTER 2024-10-29 14:48 | Outpatient (AMB) | payer OTHER, SELFPAY ==
--- NOTE | 2024-10-29 15:13 | MHC.PC.OV ---
Vital Signs 10/29/24 15:15 Height 5 ft 4 in Weight 162 lb 2 oz BMI 27.8 BP 148/78 H Blood Pressure Location Lt brachial Position Sitting Pulse 86 Pulse Source Pulse Oximeter Temp 97.5 F Temp Source Temporal Artery Scan Pulse Oximetry (%) 98 Oxygen Delivery Method Room Air Intake Visit Reasons: Pain in the mouth Public Information Specialist Required: Yes Public Information Specialist Language: Er Manager Name: Pt refused grandson interpret Accompanied by: Grandson Allergies amoxicillin Allergy (Unknown, Verified 10/29/24 15:30) pruritus penicillin G Allergy (Unknown, Verified 10/29/24 15:30) pruritis duloxetine [From Cymbalta] Adverse Reaction (Intermediate, Verified 10/29/24 15:30) palpitations and sob dulaglutide [Trulicity] Adverse Reaction (Unknown, Verified 10/29/24 15:30) abdominal pain Medication List - Last Reconciled 10/29/24 by ANTWAN Sheldon [adult diapers As directed] albuterol sulfate 90 mcg/actuation 2 puffs PO Q4-6H PRN alcohol swabs pad topical TID alosetron (Lotronex) 0.5 mg PO BID [bed rail As directed] blood pressure monitor As directed blood pressure monitor As directed blood sugar diagnostic (FreeStyle Lite Strips) As directed three times a day blood-glucose meter (FreeStyle Lite Meter kit) three times a day cholecalciferol (vitamin D3) 50 mcg PO DAILY 90 days clonazepam 0.5 mg PO DAILY PRN 30 days cyclobenzaprine 5 mg PO TID PRN dapaglifloz propaned-metformin 2.5-1,000 mg ER (Xigduo XR) 1 tab PO DAILY 90 days ezetimibe 10 mg PO DAILY famotidine 40 mg PO BEDTIME [handheld showerhead As directed] hydroxyzine HCl 10 mg PO BEDTIME PRN 10 days ibuprofen 800 mg PO Q8H PRN 30 days incontinence pad, liner, disp Use 1 pad three times a day lancets (FreeStyle Lancets) As directed three time a day lisinopril-hydrochlorothiazide 20-12.5 mg 1 tab PO DAILY 90 days loratadine 10 mg PO DAILY metoclopramide HCl 10 mg PO QID 30 days miscellaneous medical supply 1 ea miscellaneous DAILY [non-slip rug for tub As directed] pantoprazole 40 mg PO DAILY [personal wipes As directed] [raised toilet seat As directed] rosuvastatin 40 mg PO DAILY sennosides (Senna Laxative) 17.2 mg (2 x 8.6 mg) PO BEDTIME sertraline 150 mg (1.5 x 100 mg) PO DAILY Shower Chair As directed simethicone (Gas Relief (simethicone)) 125 mg PO BID-QID sitagliptin phosphate (Januvia) 25 mg PO DAILY 90 days trazodone 100 mg PO BEDTIME 90 days underpads (Bed Underpads) As directed walker As directed walker (Ultra-Light Rollator misc) As directed Tobacco use date assessed: 10/29/24 Dental Screening Dental Screen Date: 08/06/23 HPI Pain in the mouth HPI Details The patient is a 64-year-old female presenting with mouth pain and bleeding, which she has noticed recently. Her symptoms include a burning sensation on her tongue and lips when consuming cold items, but she is asymptomatic when eating warm foods. The patient denies any associated dental pain. She reports bleeding from mid-tongue fissures which appear irritated. Her past medical history includes diabetes mellitus, posing a risk for oral thrush, which is suspected based on the examination and symptoms. Other issues include tingling in her feet since June, unaccompanied by shortness of breath or chest pain, except during hypertensive episodes. Her intermittent muscle aches may be linked to rosuvastatin therapy for hyperlipidemia. She also has a history of obstructive sleep apnea, managed with CPAP therapy, which initially causes discomfort due to perceived breathing difficulty. [facility] Medical History (Updated 11/02/24 @ 00:20 by ANTWAN Sheldon) Irritable bowel syndrome with diarrhea Constipation Pre-op evaluation Back pain Physical exam Transaminitis Urinary incontinence Diabetes mellitus Tingling of both feet Bilateral leg and foot pain Lumbosacral strain Depression Insomnia Snoring Hypersomnia Urge urinary incontinence Anxiety and depression Obesity (BMI 30-39.9) Type 2 diabetes mellitus with hyperglycemia Fibromyalgia History of herniated intervertebral disc History of TIA (transient ischemic attack) Osteopenia Allergic rhinitis Migraine aura without headache Osteoarthritis Asthma Type 2 diabetes mellitus with diabetic polyneuropathy Hyperlipidemia LDL goal <70 Vitamin D insufficiency Hypertension Surgical History History of carpal tunnel surgery History of cholecystectomy History of cervical biopsy H/O colonoscopy History of bilateral tubal ligation History of partial hysterectomy History of bladder suspension procedure History of appendectomy Family History Father Kidney failure Diabetes CVD (cardiovascular disease) Hypertension Mother Diabetes Hypertension Social History Housing: House Alcohol intake: never Patient Tobacco Use Status: Never used Tobacco e-Cigarette/Vaping Use: Never Used Second Hand Smoke Exposure: No service: No Current occupational status: retired Cognitive needs: No Hearing needs: No Vision needs: No Questionnaire PHQ-9 Over the last 2 weeks, how often have you been bothered by any of the following problems? 1. Little interest or pleasure in doing things: more than half the days 2. Feeling down, depressed, or hopeless: nearly every day 3. Trouble falling or staying asleep, or sleeping too much: nearly every day 4. Feeling tired or having little energy: more than half the days 5. Poor appetite or overeating: nearly every day 6. Feeling bad about yourself - or that you are a failure or have let yourself or your family down: several days 7. Trouble concentrating on things, such as reading the newspaper or watching television: nearly every day 8. Moving or speaking so slowly that other people could have noticed. Or the opposite - being so fidgety or restless that you have been moving around a lot more than usual: more than half the days 9. Thoughts that you would be better off or of hurting yourself in some way: not at all Total score: 19 Depression Screening Interpretation: Positive (no suicidal thoughts) Depression Screening Follow-up: Existing condition and In treatment Depression Screening Done: Yes 02579 - PHQ-9 Billing: Yes Source: Developed by Drs. Agustin Caraballo, Annabella Dumont, Frank Means and colleagues, with an educational flash from [employer]. Thrive Questionnaire Date Thrive assessed: 10/29/24 I am a: Patient What is your living situation today?: I have a steady place to live Within the past 12 months, did the food you bought not last and you didn't have the money to get more?: Never true Within the past 12 months, did you worry whether your food would run out before you got money to buy more?: Never true Do you have trouble paying for medicines?: No Do you have trouble getting transportation to medical appointments?: No Do you have trouble paying your heating and electricity bill?: No Do you have trouble taking care of your child, family member or friend?: No Do you have trouble with day-to-day activities such as bathing, preparing meals, shopping, managing finances, etc.?: No Are you currently unemployed and looking for a job?: No Are you interested in more education?: No Please select the resources that you would like help with: None THRIVE Score: 0 AUDIT C Alcohol Use Questionnaire (AUDIT-C) 1. How often do you have a drink containing alcohol?: Never 3. How often do you have six or more drinks on one occasion?: Never Total Score: 0 AMBROCIO-7 AMB Questionnaire AMBROCIO-7 Date AMBROCIO - 7 assessed: 10/29/24 Feeling nervous, anxious, or on edge: 0 = Not at all Not being able to stop or control worryin = Not at all Worrying too much about different things: 0 = Not at all Trouble relaxin = Not at all Being so restless that it is hard to sit still: 0 = Not at all Becoming easily annoyed or irritable: 0 = Not at all Feeling afraid as if something awful might happen: 0 = Not at all Total AMBROCIO-7 score (0-4 normal; 5-9 mild; 10-14 moderate; 15-21 severe): 0 Source: Developed by Drs. Agustin Caraballo, Annabella Dumont, Frank Means and colleagues, with an educational flash from [employer]. AMBROCIO-7 Assessment Billing AMBROCIO-7 Assessment Tool: AMBROCIO-7 Assessment 21447 Review of Systems Const Denies headache(s) Eyes Denies loss of vision ENT Denies vertigo, Denies dizziness, Denies headache(s), Reports mouth lesions (tongue pain with cool food/drinks, tongue fissures/coated white noted), Reports mouth pain and Denies sore throat Card Denies chest pain, Denies leg edema and Denies lightheadedness Resp Denies cough, Denies hemoptysis and Denies wheezing Musc Denies arthralgias, Denies joint swelling, Reports muscle cramps (bilateral legs), Denies numbness and Denies tingling Neuro Denies Abnormal speech present, Denies vertigo, Denies dizziness, Denies headache(s), Denies loss of vision, Denies numbness and Denies tingling Gustabo/Lymph Denies easy bleeding and Denies easy bruising Aller/Immun Denies wheezing Physical exam (Primary Care) Vital Signs: Last Vital Signs Temp 97.5 F 10/29/24 15:15 Pulse 86 10/29/24 15:15 BP 148/78 H 10/29/24 15:15 Pulse Ox 98 10/29/24 15:15 Oxygen Delivery Method Room Air 10/29/24 15:15 BMI result Body Mass Index 27.8 Tobacco/Smoking Status: Tobacco use Status Tobacco use date assessed 10/29/24 10/29/24 15:23 Patient Tobacco Use Status Never used Tobacco 10/29/24 15:23 Tobacco use type 11/30/23 12:48 e-Cigarette/Vaping Use Never Used 10/29/24 15:23 PHQ-9: PHQ-9 Score PHQ-9: Total score 19 10/29/24 15:36 Depression Screening Interpretation: Positive (no suicidal thoughts) Depression Screening Follow-up: Existing condition and In treatment Thrive Assessment: Date of Thrive Assessment Date Thrive assessed 10/29/24 10/29/24 15:23 Const General: healthy appearing, no acute distress, alert and awake Nutritional Appearance: well nourished Orientation/consciousness: oriented to person, oriented to place and oriented to time HENMT Ears: TM's normal bilaterally General nose exam: Normal nasal mucous membranes and turbinates present Mouth: tongue abnormal fissured and with white coating Eyes Conjunctivae: conjunctivae normal Sclerae: sclerae normal Pupils: Equal, round and reactive pupils present Neck Neck: Yes no lymphadenopathy and Yes no JVD Thyroid: Thyroid normal Carotids: no bruits Resp Effort & Inspection: normal respiratory effort and not tachypneic Auscultation: no crackles, no rales, no rhonchi and no wheezes Cardio Rate: regular rate Rhythm: regular rhythm Heart sounds: no murmurs and normal S1 and S2 Neuro General: oriented to person, oriented to place and oriented to time Cranial nerves: Yes Equal, round and reactive pupils present Speech: No Abnormal speech present Gait exam (Neuro): Normal gait present Motor exam (neuro): no tremor noted Extrem Right upper extremity: full ROM Left upper extremity: full ROM Right lower extremity: full ROM; no edema Left lower extremity: full ROM; no edema Coding Level of Care Code Est Pt Level 3 (47187) Diagnoses Thrush B37.0 Muscle ache of extremity M79.18 DIANA (obstructive sleep apnea) G47.33 Hyperlipidemia LDL goal <70 E78.5 Additional Codes AMBROCIO-7 Assessment Billing - AMBROCIO-7 Assessment Tool: AMBROCIO-7 Assessment 01380 ([id number]) PHQ-9 - 34406 - PHQ-9 Billing: Yes ([id number]) Time Spent (min) 32 Assessment & Plan Assessment & Plan (1) Thrush: Code(s): B37.0 - Candidal stomatitis Category: Medical (2) Muscle ache of extremity: Code(s): M79.18 - Myalgia, other site Category: Medical (3) DIANA (obstructive sleep apnea): Comment: Mild degree of sleep apnea with increased severity in REM sleep. The AHI was 11/hr and oxygen jenaro was 74%. Code(s): G47.33 - Obstructive sleep apnea (adult) (pediatric) Category: Medical (4) Hyperlipidemia LDL goal <70: Code(s): E78.5 - Hyperlipidemia, unspecified Category: Medical Plan Nystatin oral suspension has been prescribed to treat suspected oral thrush, particularly in light of the patient's diabetes, warranting proactive treatment to address the mouth pain and bleeding. I have decreased the rosuvastatin dosage to mitigate muscle aches sensations, with plans to re-evaluate her lipid levels in three months. Her last LDL was 61 on 07/10/24. Her blood pressure management will be reviewed to address related discomfort. We are monitoring her muscle feet, with follow-up planned to assess the response to current interventions and any necessary adjustments. Discussed the patient self perceived sob shortly after donning the CPAP mask. Her sob resolves after keeping the mask on, encouraged patient to work on getting used to the mask or follow up with her supplier for a more comfortable fit. Patient was informed and verbally consented to the use of an ambient scribe for clinic note documentation during this visit. Orders: Orders Comprehensive [place]. Panel Fast 3 Months E11.29 - Type 2 diabetes mellitus with other diabetic kidney complication, E11.42 - Type 2 diabetes mellitus with diabetic polyneuropathy, E55.9 - Vitamin D deficiency, unspecified, I10 - Essential (primary) hypertension, Z00.00 - Encounter for general adult medical examination without abnormal findings, Z79.4 - prison (current) use of insulin Hemoglobin A1c 3 Months E11.29 - Type 2 diabetes mellitus with other diabetic kidney complication, E11.42 - Type 2 diabetes mellitus with diabetic polyneuropathy, E55.9 - Vitamin D deficiency, unspecified, I10 - Essential (primary) hypertension, Z00.00 - Encounter for general adult medical examination without abnormal findings, Z79.4 - prison (current) use of insulin Vitamin D 25-OH Total 3 Months E11.29 - Type 2 diabetes mellitus with other diabetic kidney complication, E11.42 - Type 2 diabetes mellitus with diabetic polyneuropathy, E55.9 - Vitamin D deficiency, unspecified, I10 - Essential (primary) hypertension, Z00.00 - Encounter for general adult medical examination without abnormal findings, Z79.4 - prison (current) use of insulin TSH reflex Free T4 3 Months E11.29 - Type 2 diabetes mellitus with other diabetic kidney complication, E11.42 - Type 2 diabetes mellitus with diabetic polyneuropathy, E55.9 - Vitamin D deficiency, unspecified, I10 - Essential (primary) hypertension, Z00.00 - Encounter for general adult medical examination without abnormal findings, Z79.4 - long term care administrator (current) use of insulin Lipid Panel 3 Months E11.29 - Type 2 diabetes mellitus with other diabetic kidney complication, E11.42 - Type 2 diabetes mellitus with diabetic polyneuropathy, E55.9 - Vitamin D deficiency, unspecified, I10 - Essential (primary) hypertension, Z00.00 - Encounter for general adult medical examination without abnormal findings, Z79.4 - prison (current) use of insulin Complete Blood Count Auto Diff 3 Months E11.29 - Type 2 diabetes mellitus with other diabetic kidney complication, E11.42 - Type 2 diabetes mellitus with diabetic polyneuropathy, E55.9 - Vitamin D deficiency, unspecified, I10 - Essential (primary) hypertension, Z00.00 - Encounter for general adult medical examination without abnormal findings, Z79.4 - prison (current) use of insulin UA CC w/rflx Micro + Cult 3 Months E11.29 - Type 2 diabetes mellitus with other diabetic kidney complication, E11.42 - Type 2 diabetes mellitus with diabetic polyneuropathy, E55.9 - Vitamin D deficiency, unspecified, I10 - Essential (primary) hypertension, Z00.00 - Encounter for general adult medical examination without abnormal findings, Z79.4 - long term care administrator (current) use of insulin Medications: New nystatin swish and swallow 6 mL PO QID 14 days 336 mL 0RF B37.0 - Candidal stomatitis rosuvastatin 20 mg PO DAILY 90 tabs 1RF On Hold rosuvastatin Hold Comment: Doctor's Order 40 mg PO DAILY 90 tabs 3RF E78.5 - Hyperlipidemia, unspecified Patient Instructions: - Use nystatin oral suspension as directed, swishing before swallowing for effective treatment of mouth thrush. - Continue blood pressure monitoring; report any episodes of discomfort or hypertensive symptoms. - Monitor for any changes in muscle aches, especially with the adjusted rosuvastatin dosage. - Follow up in three months for cholesterol level evaluation and symptom review. - Utilize CPAP machine consistently for obstructive sleep apnea management.
[2024-10-29 15:15] VITALS: BP 148/78; PULSE 86; TEMP 36.4; O2SAT 98; BMI 27.8
== END 2024-10-29 16:25 | disposition home or self-care (01) ==
LOC: HO.HMCH 14:49
PROVIDERS: PCP Internal Medicine
DX: B37.0 Candidal stomatitis (principal); M79.18 Myalgia, other site; G47.33 Obstructive sleep apnea (adult) (pediatric); E78.5 Hyperlipidemia, unspecified

== ENCOUNTER → 2024-10-29 14:48 | Outpatient (BNVA) | payer OTHER, SELFPAY | PROVIDERS: PCP Internal Medicine | DX: B37.0 Candidal stomatitis (principal); M79.18 Myalgia, other site; G47.33 Obstructive sleep apnea (adult) (pediatric); E78.5 Hyperlipidemia, unspecified; E11.9 Type 2 diabetes mellitus without complications | CPT/HCPCS: 96127; 99212 ==

== ENCOUNTER 2024-11-28 14:51 | Outpatient (AMB) | payer OTHER, SELFPAY ==
--- NOTE | 2024-11-28 14:55 | A.OFFPC_ITS ---
Vital Signs 11/28/24 14:59 Height 5 ft 4 in Weight 164 lb 4 oz BMI 28.2 BP 138/68 Blood Pressure Location Lt brachial Position Sitting Pulse 70 Pulse Source Pulse Oximeter Temp 97.3 F Temp Source Temporal Artery Scan Pulse Oximetry (%) 95 Oxygen Delivery Method Room Air Intake Visit Reasons: high BS over 400 Intake Note: Patient is here to follow up on High BS over 400. 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: Present Accompanied by: Daughter Allergies amoxicillin Allergy (Unknown, Verified 11/28/24 14:59) pruritus penicillin G Allergy (Unknown, Verified 11/28/24 14:59) pruritis duloxetine [From Cymbalta] Adverse Reaction (Intermediate, Verified 11/28/24 14:59) palpitations and sob dulaglutide [Trulicity] Adverse Reaction (Unknown, Verified 11/28/24 14:59) abdominal pain Medication List - Last Reconciled 11/28/24 by Natalie Lizarraga PA-C [adult diapers As directed] albuterol sulfate 90 mcg/actuation 2 puffs PO Q4-6H PRN alcohol swabs pad topical TID alosetron (Lotronex) 0.5 mg PO BID [bed rail As directed] blood pressure monitor As directed blood pressure monitor As directed blood sugar diagnostic (FreeStyle Lite Strips) As directed three times a day blood-glucose meter (FreeStyle Lite Meter kit) three times a day cholecalciferol (vitamin D3) 50 mcg PO DAILY 90 days clonazepam 0.5 mg PO DAILY PRN 30 days cyclobenzaprine 5 mg PO TID PRN dapaglifloz propaned-metformin 2.5-1,000 mg ER (Xigduo XR) 1 tab PO DAILY 90 days ezetimibe 10 mg PO DAILY famotidine 40 mg PO BEDTIME [handheld showerhead As directed] hydroxyzine HCl 10 mg PO BEDTIME PRN 10 days ibuprofen 800 mg PO Q8H PRN 30 days incontinence pad, liner, disp Use 1 pad three times a day lancets (FreeStyle Lancets) As directed three time a day lisinopril-hydrochlorothiazide 20-12.5 mg 1 tab PO DAILY 90 days loratadine 10 mg PO DAILY metoclopramide HCl 10 mg PO QID 30 days miscellaneous medical supply 1 ea miscellaneous DAILY [non-slip rug for tub As directed] nystatin 6 mL PO QID 14 days pantoprazole 40 mg PO DAILY [personal wipes As directed] [raised toilet seat As directed] rosuvastatin 40 mg PO DAILY rosuvastatin 20 mg PO DAILY sennosides (Senna Laxative) 17.2 mg (2 x 8.6 mg) PO BEDTIME sertraline 150 mg (1.5 x 100 mg) PO DAILY Shower Chair As directed simethicone (Gas Relief (simethicone)) 125 mg PO BID-QID sitagliptin phosphate (Januvia) 25 mg PO DAILY 90 days trazodone 100 mg PO BEDTIME 90 days underpads (Bed Underpads) As directed walker As directed walker (Ultra-Light Rollator misc) As directed Tobacco use date assessed: 11/28/24 Fall risk assessment: No Falls in past year Last assessed Fall Risk: 11/28/24 Dental Screening Dental Screen Date: 11/28/24 Did you have a dental visit in the last 12 months?: Yes Did you have a dental problem in the last 6 months where you did not have access to dental care?: No Was dental information given to patient?: Patient has dentist HPI high BS over 400 HPI Details 64-year-old female with past medical his tory of diabetes mellitus, hypercholesterolemia, GERD, hypertension, fibromyalgia, asthma, anxiety and depression, obstructive sleep apnea last seen 10/2024 coming in for acute problem. Presenting with management of her diabetes mellitus. Elevation in blood glucose levels over the last week as she has been out of her Xigduo for the last week. Blood sugars have been in the 400s. A1c in the clinic today is elevated from her last value. She was discontinued off of Ozempic in August and started on Xigduo which she took for about a month. Dietary factors, specifically the intake of carbohydrates such as pasta, soda and candy and bread, were identified as contributing factors. [facility] Medical History (Updated 11/02/24 @ 00:20 by ANTWAN Sheldon) Irritable bowel syndrome with diarrhea Constipation Pre-op evaluation Back pain Physical exam Transaminitis Urinary incontinence Diabetes mellitus Tingling of both feet Bilateral leg and foot pain Lumbosacral strain Depression Insomnia Snoring Hypersomnia Urge urinary incontinence Anxiety and depression Obesity (BMI 30-39.9) Type 2 diabetes mellitus with hyperglycemia Fibromyalgia History of herniated intervertebral disc History of TIA (transient ischemic attack) Osteopenia Allergic rhinitis Migraine aura without headache Osteoarthritis Asthma Type 2 diabetes mellitus with diabetic polyneuropathy Hyperlipidemia LDL goal <70 Vitamin D insufficiency Hypertension Surgical History History of carpal tunnel surgery History of cholecystectomy History of cervical biopsy H/O colonoscopy History of bilateral tubal ligation History of partial hysterectomy History of bladder suspension procedure History of appendectomy Family History Father Kidney failure Diabetes CVD (cardiovascular disease) Hypertension Mother Diabetes Hypertension Social History Housing: House Alcohol intake: never Patient Tobacco Use Status: Never used Tobacco e-Cigarette/Vaping Use: Never Used Second Hand Smoke Exposure: No service: No Current occupational status: retired Cognitive needs: No Hearing needs: No Vision needs: No Questionnaire PHQ-9 Over the last 2 weeks, how often have you been bothered by any of the following problems? 1. Little interest or pleasure in doing things: not at all 2. Feeling down, depressed, or hopeless: not at all 3. Trouble falling or staying asleep, or sleeping too much: more than half the days 4. Feeling tired or having little energy: not at all 5. Poor appetite or overeating: not at all 6. Feeling bad about yourself - or that you are a failure or have let yourself or your family down: not at all 7. Trouble concentrating on things, such as reading the newspaper or watching television: not at all 8. Moving or speaking so slowly that other people could have noticed. Or the opposite - being so fidgety or restless that you have been moving around a lot more than usual: not at all 9. Thoughts that you would be better off or of hurting yourself in some way: not at all Total score: 2 Depression Screening Interpretation: Positive Depression Screening Done: Yes Source: Developed by Drs. Agustin LAnnabella Tracey, Frank Means and colleagues, with an educational flash from [employer]. Thrive Questionnaire Date Thrive assessed: 10/29/24 I am a: Patient What is your living situation today?: I choose not to answer this question Within the past 12 months, did the food you bought not last and you didn't have the money to get more?: I choose not to answer this question Within the past 12 months, did you worry whether your food would run out before you got money to buy more?: I choose not to answer this question Do you have trouble paying for medicines?: No Do you have trouble getting transportation to medical appointments?: No Do you have trouble paying your heating and electricity bill?: No Do you have trouble taking care of your child, family member or friend?: No Do you have trouble with day-to-day activities such as bathing, preparing meals, shopping, managing finances, etc.?: No Are you currently unemployed and looking for a job?: No Are you interested in more education?: No Please select the resources that you would like help with: None Currently or been in a relationship where the following occur: I choose not to answer THRIVE Score: 0 AUDIT C Alcohol Use Questionnaire (AUDIT-C) 1. How often do you have a drink containing alcohol?: Never Total Score: 0 AMBROCIO-7 AMB Questionnaire AMBROCIO-7 Date AMBROCIO - 7 assessed: 10/29/24 Feeling nervous, anxious, or on edge: 0 = Not at all Not being able to stop or control worryin = Not at all Worrying too much about different things: 0 = Not at all Trouble relaxin = Not at all Being so restless that it is hard to sit still: 0 = Not at all Becoming easily annoyed or irritable: 0 = Not at all Feeling afraid as if something awful might happen: 0 = Not at all Total AMBROCIO-7 score (0-4 normal; 5-9 mild; 10-14 moderate; 15-21 severe): 0 Source: Developed by Annabella Garcia Kurt Kroenke and colleagues, with an educational flash from [employer]. Review of Systems Const Denies body aches, Denies chills, Denies fever(s) and Denies poor appetite Eyes Reports no additional complaints ENT Denies dizziness Card Denies chest pain and Denies dyspnea Resp Denies cough and Denies dyspnea GI Denies abdominal pain, Denies nausea and Denies vomiting Reports no additional complaints Musc Reports no additional complaints and Denies abnormal gait Skin/Breast Reports system reviewed and no additional complaints, except as documented Neuro Denies abnormal gait and Denies dizziness Psych Reports no additional complaints Physical exam (Primary Care) Vital Signs: Last Vital Signs Temp 97.3 F 11/28/24 14:59 Pulse 70 11/28/24 14:59 BP 138/68 11/28/24 14:59 Pulse Ox 95 11/28/24 14:59 Oxygen Delivery Method Room Air 11/28/24 14:59 BMI result Body Mass Index 28.2 Tobacco/Smoking Status: Tobacco use Status Tobacco use date assessed 11/28/24 11/28/24 15:06 Patient Tobacco Use Status Never used Tobacco 11/28/24 14:57 Tobacco use type 11/30/23 12:48 e-Cigarette/Vaping Use Never Used 11/28/24 14:57 PHQ-9: PHQ-9 Score PHQ-9: Total score 2 11/28/24 15:14 Depression Screening Interpretation: Positive Thrive Assessment: Date of Thrive Assessment Date Thrive assessed 10/29/24 11/28/24 14:57 Currently or been in a relationship where the following occur: I choose not to answer Const General: cooperative, healthy appearing, comfortable and no acute distress Orientation/consciousness: patient oriented x3 HENMT Head: Yes normocephalic Ears: hearing grossly normal bilaterally General nose exam: Normal external nose present Eyes General: appearance normal, both eyes and all related structures Conjunctivae: conjunctivae normal Neck Neck: Yes full ROM and Yes no lymphadenopathy Resp Effort & Inspection: normal respiratory effort Auscultation: clear to auscultation bilaterally, no crackles, no rales, no rhonchi and no wheezes Cardio Rate: regular rate Rhythm: regular rhythm Skin General skin exam: no rashes or lesions noted Neuro General: patient oriented x3 Gait exam (Neuro): Normal gait present Extrem General: Yes normal to inspection, Yes full ROM and No edema Psych Affect: normal affect Attitude: cooperative Insight: Good insight present (Psych) Judgement: Good judgement present (Psych) Results AMB Hemoglobin A1c AMB Hemoglobin A1c 9.3 % Last Edit by TEENA Haas on 11/28/24 15:12 Results Reviewed Results Reviewed: Laboratory Last Values Hgb A1c (Clinic) 9.3 % (4.0-6.0) H 11/28/24 14:58 Coding Level of Care Code Est Pt Level 3 (75397) Diagnoses Type 2 diabetes mellitus with hyperglycemia, with long-term current use of insulin E11.65; Z79.4 Diabetes mellitus correction insulin use: with correction use Overweight (BMI 25.0-29.9) E66.3 Essential hypertension I10 Hypertension type: essential hypertension Assessment & Plan Assessment & Plan (1) Type 2 diabetes mellitus with hyperglycemia: Code(s): E11.65 - Type 2 diabetes mellitus with hyperglycemia Category: Medical Qualifiers: 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 Although fruits are generally healthy they should be eaten in moderation as they are still high in sugar. Hemoglobin A1c goal of less than 7%. Discussed with patient the importance of tight glucose control. She is no longer taking the Ozempic and given the short duration of the Xigduo, unlikely this would have had an effect on her A1c at this time. Plan to continue on this medication and repeat A1c in 3 months. Discussed at length dietary modification and patient was provided with diabetic resources today. Referral was also placed to nurse navigation for diabetic education. (2) Overweight (BMI 25.0-29.9): Code(s): E66.3 - Overweight Category: Medical Plan: Healthy diet and regular exercise is encouraged. (3) Hypertension: Code(s): I10 - Essential (primary) hypertension Category: Medical Qualifiers: Hypertension type: essential hypertension Qualified Code(s): I10 - Essential (primary) hypertension Plan: Continue on current blood pressure medication. Avoid salt intake and encourage healthy diet and regular exercise. Plan This note was constructed using voice recognition software. While every effort has been made to ensure accuracy and manufacturing applications engineer, still areas may have been included sometimes these areas may affect the content or meeting of the given symptoms. Total time spent caring for the patient today was 20 minutes. This includes time spent before the visit reviewing the chart, time spent during the visit, and time spent after the visit and documentation. Patient was informed and verbally consented to the use of an ambient scribe for clinic note documentation during this visit. Orders: Orders AMB Hemoglobin A1c Today E11.65 - Type 2 diabetes mellitus with hyperglycemia, Z79.4 - manager terminal (current) use of insulin Referrals Nurse Navigator Referral E11.65 - Type 2 diabetes mellitus with hyperglycemia, Z79.4 - longterm (current) use of insulin
[2024-11-28 14:59] VITALS: BP 138/68; PULSE 70; TEMP 36.3; O2SAT 95; BMI 28.2
== END 2024-11-28 15:36 | disposition home or self-care (01) ==
LOC: HO.HMCH 14:52
PROVIDERS: PCP Internal Medicine
DX: E11.65 Type 2 diabetes mellitus with hyperglycemia (principal); Z79.4 Long term (current) use of insulin; E66.3 Overweight; I10 Essential (primary) hypertension

== ENCOUNTER → 2024-11-28 14:51 | Outpatient (BNVA) | payer OTHER, SELFPAY | PROVIDERS: PCP Internal Medicine | DX: E11.65 Type 2 diabetes mellitus with hyperglycemia (principal); E78.00 Pure hypercholesterolemia, unspecified; K21.9 Gastro-esophageal reflux disease without esophagitis; I10 Essential (primary) hypertension; M79.7 Fibromyalgia; J45.909 Unspecified asthma, uncomplicated; F41.9 Anxiety disorder, unspecified; F32.A Depression, unspecified; G47.33 Obstructive sleep apnea (adult) (pediatric); E66.3 Overweight; Z68.28 Body mass index [BMI] 28.0-28.9, adult; Z79.899 Other long term (current) drug therapy | CPT/HCPCS: 83036; 96127; 99212 ==

== ENCOUNTER 2024-12-10 08:17 | Emergency (ER) | payer OTHER, SELFPAY ==
--- NOTE | ~2024-12-10 | CT_ITS ---
EXAMINATION: CT ABDOMEN AND PELVIS WITHOUT CONTRAST CLINICAL INFORMATION: Left flank pain and hematuria. COMPARISON: None available. TECHNIQUE: Multidetector volumetric imaging was performed from the superior aspect of the liver through the pubic symphysis. Sagittal and coronal reformatted images were obtained on the technologist's workstation. This CT examination was performed using dose optimization techniques as appropriate, variously including the following: *Automated exposure control *Adjustment of mA and/or kV according to patient size (this includes techniques or standardized protocols for targeted exams where dose is matched to indication/reason for exam; i.e. extremities or head) *Use of iterative reconstruction technique FINDINGS: LUNG BASES: Lung bases demonstrate mild gravity dependent atelectasis. Heart is mildly enlarged. There is no pericardial or pleural effusion. Suspect a small type I hiatus hernia. LIVER, GALLBLADDER, AND BILIARY TREE: The unenhanced liver is normal in size, shape, and attenuation. No focal hepatic lesion or biliary ductal dilatation is present. The gallbladder is surgically absent. PANCREAS: Unremarkable. SPLEEN: Unremarkable. ADRENAL GLANDS: Unremarkable. KIDNEYS AND URETERS: The kidneys are normal in size, shape, and attenuation. Mildly hyperattenuating renal pyramids. This may represent medullary nephrocalcinosis. No hydronephrosis, hydroureter, or calculi seen. No perinephric stranding. BLADDER: Unremarkable. GASTROINTESTINAL TRACT: There has been an appendectomy. The colon is normal in course and caliber. There is moderate retained fecal material in the colon and rectum. No rectal abnormality. The stomach is decompressed, limiting evaluation. The duodenal sweep is normal. The small bowel is normal in caliber and course. ABDOMINAL WALL: No significant hernia is appreciated. There are injection granulomata in the buttock regions. LYMPH NODES: Normal. VASCULAR: There is mild to moderate calcific atheromatous change of the aorta and iliac arteries. No aneurysm. PELVIC VISCERA: There has been a hysterectomy. There are no adnexal masses. OSSEOUS STRUCTURES: There are no suspicious lytic or blastic bone lesions identified. There are mild to moderate degenerative changes throughout the spine. This is most notable at L4-5 and L5-S1. CT/CT abdomen pelvis wo IV con IMPRESSION: 1. There are no acute findings in the abdomen or pelvis. There is no urological obstruction or calculus. 2. Mildly hyperattenuating renal pyramids, which could potentially represent renal medullary nephrocalcinosis. 3. Appendectomy. 4. Cholecystectomy. 5. Hysterectomy. 6. There is mild to moderate constipation. Electronically signed by: Kush Bro MD 12/10/2024 10:34 AM EDT
--- NOTE | 2024-12-10 08:43 | ED_ITS ---
HPI - Back Pain/Injury General Chief Complaint: Abdominal Pain Stated Complaint: Back pain Time Seen by Provider: 12/10/24 10:02 Related Data Home Medications ?Medication ?Instructions ?Recorded ?Confirmed alcohol swabs pad topical TID 04/14/20 11/28/24 loratadine 10 mg tablet 10 mg PO DAILY 04/14/20 11/28/24 cyclobenzaprine 5 mg tablet 5 mg PO TID PRN 11/30/22 11/28/24 Previous Rx's ?Medication ?Instructions ?Recorded lancets 28 gauge (FreeStyle #300 ea 12/02/20 Lancets) handheld showerhead #1 ea 02/04/21 hydroxyzine HCl 10 mg tablet 10 mg PO BEDTIME PRN insomnia 10 04/14/21 days #20 tabs blood-glucose meter (FreeStyle #1 ea 05/24/21 Lite Meter kit) miscellaneous medical supply 1 ea miscellaneous DAILY #1 ea 06/03/21 bed rail #1 ea 08/02/22 Shower Chair #1 ea 10/26/22 adult diapers #120 ea 10/26/22 raised toilet seat #1 ea 10/26/22 walker #1 ea 10/26/22 walker (Ultra-Light Rollator misc) #1 ea 11/09/22 blood pressure monitor #1 ea 03/26/23 blood sugar diagnostic (FreeStyle #300 ea 05/06/23 Lite Strips) blood pressure monitor #1 ea 11/08/23 incontinence pad, liner, disp #90 ea 11/08/23 non-slip rug for tub #1 ea 11/08/23 personal wipes #300 ea 11/08/23 underpads (Bed Underpads) #100 ea 11/08/23 sertraline 100 mg tablet 150 mg (1.5 x 100 mg) PO DAILY 01/13/24 #135 tabs sennosides 8.6 mg tablet (Senna 17.2 mg (2 x 8.6 mg) PO BEDTIME 01/29/24 Laxative) #60 tabs trazodone 100 mg tablet 100 mg PO BEDTIME 90 days #90 tabs 04/26/24 albuterol sulfate 90 mcg/actuation 2 puff PO Q4-6H PRN shortness of 05/28/24 aerosol inhaler breath or wheezing #8.5 ea cholecalciferol (vitamin D3) 50 50 mcg PO DAILY 90 days #90 caps 06/04/24 mcg (2,000 unit) capsule ibuprofen 800 mg tablet 800 mg PO Q8H PRN pain 30 days #90 06/23/24 tabs ezetimibe 10 mg tablet 10 mg PO DAILY #90 tabs 06/29/24 rosuvastatin 40 mg tablet 40 mg PO DAILY #90 tabs 06/29/24 lisinopril 20 1 tab PO DAILY 90 days #90 tabs 09/18/24 mg-hydrochlorothiazide 12.5 mg tablet sitagliptin phosphate 25 mg tablet 25 mg PO DAILY 90 days #90 tabs 10/14/24 (Januvia) alosetron 0.5 mg tablet (Lotronex) 0.5 mg PO BID #60 tabs 10/28/24 famotidine 40 mg tablet 40 mg PO BEDTIME #90 tabs 10/28/24 metoclopramide HCl 10 mg tablet 10 mg PO QID 30 days #120 tabs 10/28/24 pantoprazole 40 mg tablet,delayed 40 mg PO DAILY #90 tabs 10/28/24 release simethicone 125 mg chewable tablet 125 mg PO BID-QID abdominal 10/28/24 (Gas Relief (simethicone)) distention #120 tabs nystatin 100,000 unit/mL oral 6 ml PO QID 14 days #336 mL 10/29/24 suspension rosuvastatin 20 mg tablet 20 mg PO DAILY #90 tabs 10/29/24 dapagliflozin propan 2.5 1 tab PO DAILY 90 days #90 ea 11/24/24 mg-metformin ER 1,000 mg tablet,ext rel 24hr (Xigduo XR) cefpodoxime 200 mg tablet 200 mg PO BID 9 days #18 tabs 12/10/24 clonazepam 0.5 mg tablet 0.5 mg PO DAILY PRN anxiety 30 12/10/24 days #30 tabs magnesium 250 mg tablet 250 mg PO DAILY #7 tabs 12/10/24 methocarbamol 750 mg tablet 750 mg PO BEDTIME #7 tabs 12/10/24 Allergies Allergy/AdvReac Type Severity Reaction Status Date / Time amoxicillin Allergy Unknown pruritus Verified 12/10/24 08:48 penicillin G Allergy Unknown pruritis Verified 12/10/24 08:48 duloxetine [From Cymbalta] AdvReac Intermediate palpitations Verified 12/10/24 08:48 and sob dulaglutide [Trulicity] AdvReac Unknown abdominal Verified 12/10/24 08:48 pain PMFSH Past Medical History Medical History (Updated 12/11/24 @ 00:01 by Israel Lopez) Irritable bowel syndrome with diarrhea Constipation Pre-op evaluation Back pain Physical exam Transaminitis Urinary incontinence Diabetes mellitus Tingling of both feet Bilateral leg and foot pain Lumbosacral strain Depression Insomnia Snoring Hypersomnia Urge urinary incontinence Anxiety and depression Obesity (BMI 30-39.9) Type 2 diabetes mellitus with hyperglycemia Fibromyalgia History of herniated intervertebral disc History of TIA (transient ischemic attack) Osteopenia Allergic rhinitis Migraine aura without headache Osteoarthritis Asthma Type 2 diabetes mellitus with diabetic polyneuropathy Hyperlipidemia LDL goal <70 Vitamin D insufficiency Hypertension Surgical History History of carpal tunnel surgery History of cholecystectomy History of cervical biopsy H/O colonoscopy History of bilateral tubal ligation History of partial hysterectomy History of bladder suspension procedure History of appendectomy Family History Family History Father Kidney failure Diabetes CVD (cardiovascular disease) Hypertension Mother Diabetes Hypertension Social History Social History Housing: House Unable to assess alcohol history related to: Unknown Alcohol intake: never Patient Tobacco Use Status: Never used Tobacco Smoked in Last 30 Days: No e-Cigarette/Vaping Use: Never Used Second Hand Smoke Exposure: No Use of substances other than those prescribed or required for medical reasons: Unknown Advance Directives: No Advance Directives Information Provided: Yes service: No Current occupational status: retired Cognitive needs: No Hearing needs: No Vision needs: No Physical Exam 2 Vital Signs: Vital Signs: Last Vital Signs Temp 98.4 F 12/10/24 14:01 Pulse 80 12/10/24 14:01 Resp 16 12/10/24 14:01 BP 121/79 12/10/24 14:01 Pulse Ox 95 12/10/24 14:01 O2 Del Method Room Air 12/10/24 14:01 BMI result Body Mass Index 27.5 Course Course Course Narrative: 64 yo female with PMH of IBS, DIANA, GO, sciatica, HLD, asthma, DM, HTN, HLD not on blood thinners she noted 3 days of L sided low back pain but no n/v/d and no fevers. Today she became nervous as she saw blood in the urine. The pain is worse with walking. She has no weakness, no new loss of control of bowel or bladder. She feels the left lateral side of the thigh is tingling. At this time labs, renal colic study, UA this is a RAPID medical screening exam the rest of the history and physical exam is to be done by the main provider. BERYL 12/10/24 845am Medications Administered Discontinued Medications Generic Name Dose Route Start Last Admin Trade Name Freq PRN Reason Stop Dose Admin Cefuroxime Axetil 250 mg 12/10/24 12:42 12/10/24 13:54 Cefuroxime Axetil 250 Mg Tablet PO 12/10/24 12:43 250 mg ONCE ONE Administration Dexamethasone 6 mg 12/10/24 11:53 12/10/24 13:54 Dexamethasone 6 Mg Tablet PO 12/10/24 11:54 6 mg ONCE ONE Administration Magnesium Sulfate 2 gm in 50 mls @ 150 mls/hr 12/10/24 10:06 12/10/24 11:03 Magnesium Sulfate/H2o IV 12/10/24 10:25 Infused ONCE ONE Infusion Ketorolac Tromethamine 15 mg 12/10/24 11:53 12/10/24 12:26 Ketorolac Tromethamine 15 Mg/Ml Vial IVPUSH 12/10/24 11:54 15 mg ONCE ONE Administration Lidocaine 1 patch 12/10/24 11:53 12/10/24 12:26 Lidocaine 4 % Patch Adh..Patch TRANSDERMA 12/10/24 11:54 1 patch ONCE ONE Administration Protocol Methocarbamol 750 mg 12/10/24 11:53 12/10/24 12:26 Methocarbamol 750 Mg Tablet PO 12/10/24 11:54 750 mg ONCE ONE Administration Medical Decision Making Lab Data 12/10/24 08:55 12/10/24 08:55 Labs: Lab Results 12/10/24 12/10/24 Range/Units 08:55 11:46 WBC 5.1 (4.8-10.8) X10*3/uL RBC 4.31 (4.20-5.50) X10*6/uL Hgb 12.6 (12.0-16.0) g/dl Hct 38.8 (37.0-47.0) % MCV 90.0 (80.0-98.0) fL MCH 29.2 (27.0-33.0) pg MCHC 32.5 (31.0-35.0) g/dl RDW 13.2 (11.0-16.0) % Plt Count 241 (160-400) X10*3/uL MPV 10.4 (9.4-12.3) fL Immature Gran % (Auto) 0.2 (0.0-0.4) % Neut % (Auto) 74.1 H (45-73) % Lymph % (Auto) 16.5 L (20-40) % [place] % (Auto) 7.8 (2-11) % Eos % (Auto) 0.8 (0-4) % Baso % (Auto) 0.6 (0-2) % Lymph # (Auto) 0.8 L (1.2-4.9) X10*3/uL [place] # (Auto) 0.4 (0.1-1.2) X10*3/uL Eos # (Auto) 0.0 (0.0-0.4) X10*3/uL Baso # (Auto) 0.0 (0.0-0.2) X10*3/uL Abs Immat Gran (auto) 0.01 (0.00-0.03) X10*3/uL Absolute Neuts (auto) 3.8 (2.0-8.3) x10*3/uL Absolute Nucleated RBC 0.000 (0.0-0.012) X10*3/uL Nucleated RBC % (auto) 0.0 (0.0-0.2) /100WBC Sodium 139 (135-145) mmol/L Potassium 3.8 (3.3-5.1) mmol/L Chloride 105 (96-108) mmol/L Carbon Dioxide 26 (22-29) mmol/L Anion Gap 12 (12-20) BUN 14 (9-16) mg/dL Creatinine 0.66 (0.5-1.4) mg/dL Estim Creat Clear Calc 81.9 Estimated GFR > 60 Random Glucose 185 H (60-115) mg/dL Calcium 9.6 (8.4-10.2) mg/dL Magnesium 1.4 L* (1.6-2.6) mg/dL Total Bilirubin 0.5 (0.0-1.0) mg/dL Direct Bilirubin 0.2 (0.0-0.5) mg/dL AST 23 (5-31) U/L ALT 19 (0-31) U/L Alkaline Phosphatase 77 (39-117) U/L Total Protein 8.4 H (6.5-8.0) g/dL Albumin 4.3 (3.5-5.0) g/dL Lipase 782 H (8-78) U/L Urine Color Yellow Urine Appearance Cloudy Urine pH 5.5 (5.0-9.0) Ur Specific [place] >= 1.030 H (1.005-1.025) Urine Protein Negative (Neg-Trace) mg/dL Urine Glucose (UA) >=1000 H (Negative) mg/dL Urine Ketones Trace (Negative) mg/dL Urine Blood Negative (Negative) Urine Nitrite Positive H (Negative) Ur Leukocyte Esterase Small (1+) H (Negative) Urine RBC 0-2 (0-2) /HPF Urine WBC >50 H (0-5) /HPF Ur Squamous Epith Cells 3-5 (0-2) /HPF Urine Bacteria 4+ (None Seen) Hyaline Casts 0-2 (0-2) /LPF Discharge Plan Discharge Clinical Impression: Urinary tract infection, Radiculopathy, Elevated lipase, Hypomagnesemia Patient Disposition: Home, Self-Care Instructions: Magnesium Sulfate (By mouth), Urinary Tract Infection in Women (DC), Hypomagnesemia (ED) Additional Instructions: _ DISCHARGE DIAGNOSES: Lumbar radiculopathy/sciatica likely causing upper left buttock pain UTI possibly pyelonephritis or upper urinary tract infection Your magnesium level was low we repleted this with intravenous magnesium but we will prescribe a few more days of supplemental magnesium by mouth. You will need to have this rechecked in several days by your doctor HISTORY OF PRESENTATION: ?Back pain EMERGENCY DEPARTMENT COURSE,TESTS, TREATMENTS: While in the ED today she had a CT scan which showed no stones or other acute pathology DISCHARGE MEDICATIONS: ?[We have made no changes to your regular medication regimen] we have added an antibiotic for the next 9 days FOLLOW-UP: ?Call your primary or general physician soon as possible to discuss your symptoms, your ED visit and to discuss follow up plans Call your primary doctor he should be seen within a few days for follow up INSTRUCTIONS ?& RETURN PRECAUTIONS: If any symptoms change first call your primary physician, if it is after-hours your primary doctors office should have a provider bakery worker conveyor line you can speak with. If the symptoms are severe or very concerning to you then call 911 or return to the ED. Return for high fever, shaking chills, severe or intractable pain or other severe symptoms as we discussed Abdi Wang MD Emergency Physician [facility] Prescriptions: New cefpodoxime 200 mg tablet 200 mg PO BID 9 Days Qty: 18 0RF Rx Instructions: must administer with a meal/food methocarbamol 750 mg tablet 750 mg PO BEDTIME Qty: 7 0RF magnesium 250 mg tablet 250 mg PO DAILY Qty: 7 0RF No Action (DME) handheld showerhead See Rx Instructions .Route .MEDSUPPLY Qty: 1 0RF Rx Instructions: As directed (DME) blood-glucose meter [FreeStyle Lite Meter] Kit See Rx Instructions .ROUTE .MEDSUPPLY Qty: 1 0RF Rx Instructions: three times a day miscellaneous medical supply Misc 1 ea miscellaneous DAILY Qty: 1 0RF Rx Instructions: Weekly Medication Box (DME) bed rail See Rx Instructions .Route .MEDSUPPLY Qty: 1 0RF Rx Instructions: As directed (DME) walker Misc See Rx Instructions .Route Qty: 1 0RF Rx Instructions: As directed (DME) Shower Chair Misc See Rx Instructions .Route Qty: 1 0RF Rx Instructions: As directed (DME) raised toilet seat See Rx Instructions .Route .MEDSUPPLY Qty: 1 0RF Rx Instructions: As directed (DME) adult diapers medium See Rx Instructions .Route .MEDSUPPLY Qty: 120 11RF Rx Instructions: As directed (DME) Ultra-Light Rollator Misc See Rx Instructions .Route Qty: 1 0RF Rx Instructions: As directed (DME) blood pressure monitor Kit See Rx Instructions .Route Qty: 1 0RF Rx Instructions: As directed (DME) FreeStyle Lite Strips Strip See Rx Instructions .ROUTE .MEDSUPPLY Qty: 300 3RF Rx Instructions: As directed three times a day (DME) non-slip rug for tub See Rx Instructions .Route .MEDSUPPLY Qty: 1 0RF Rx Instructions: As directed (DME) underpads [Bed Underpads] Pad See Rx Instructions .Route Qty: 100 6RF Rx Instructions: As directed (DME) blood pressure monitor Kit See Rx Instructions .Route Qty: 1 0RF Rx Instructions: As directed (DME) incontinence pad, liner, disp Pad See Rx Instructions .Route Qty: 90 11RF Rx Instructions: Use 1 pad three times a day (DME) personal wipes See Rx Instructions .Route .MEDSUPPLY Qty: 300 6RF Rx Instructions: As directed sertraline 100 mg tablet 150 mg PO DAILY Qty: 135 0RF trazodone 100 mg tablet 100 mg PO BEDTIME 90 Days Qty: 90 1RF albuterol sulfate 90 mcg/actuation HFA aerosol inhaler 2 puff PO Q4-6H PRN (Reason: shortness of breath or wheezing) Qty: 8.5 0RF cholecalciferol (vitamin D3) 50 mcg (2,000 unit) capsule 50 mcg PO DAILY 90 Days Qty: 90 1RF ibuprofen 800 mg tablet 800 mg PO Q8H PRN (Reason: pain) 30 Days Qty: 90 1RF ezetimibe 10 mg tablet 10 mg PO DAILY Qty: 90 3RF rosuvastatin 40 mg tablet 40 mg PO DAILY Qty: 90 3RF lisinopril-hydrochlorothiazide 20-12.5 mg tablet 1 tab PO DAILY 90 Days Qty: 90 1RF Januvia 25 mg tablet 25 mg PO DAILY 90 Days Qty: 90 0RF Xigduo XR 2.5-1,000 mg tablet, IR - ER, biphasic 24hr 1 tab PO DAILY 90 Days Qty: 90 1RF clonazepam 0.5 mg tablet 0.5 mg PO DAILY PRN (Reason: anxiety) 30 Days Qty: 30 0RF alcohol swabs Pads, Medicated topical TID loratadine 10 mg tablet 10 mg PO DAILY hydroxyzine HCl 10 mg tablet 10 mg PO BEDTIME PRN (Reason: insomnia) 10 Days Qty: 20 0RF Rx Instructions: Take 1-2 tablets at bedtime as needed for sleep (DME) lancets [FreeStyle Lancets] 28 gauge misc See Rx Instructions .ROUTE .MEDSUPPLY Qty: 300 3RF Rx Instructions: As directed three time a day sennosides [Senna Laxative] 8.6 mg tablet 17.2 mg PO BEDTIME Qty: 60 6RF nystatin 100,000 unit/mL suspension 6 ml PO QID 14 Days Qty: 336 0RF Rx Instructions: swish and swallow rosuvastatin 20 mg tablet 20 mg PO DAILY Qty: 90 1RF alosetron [Lotronex] 0.5 mg tablet 0.5 mg PO BID Qty: 60 11RF famotidine 40 mg tablet 40 mg PO BEDTIME Qty: 90 2RF metoclopramide HCl 10 mg tablet 10 mg PO QID 30 Days Qty: 120 6RF simethicone [Gas Relief (simethicone)] 125 mg tablet,chewable 125 mg PO BID-QID Qty: 120 11RF pantoprazole 40 mg tablet,delayed release (DR/EC) 40 mg PO DAILY Qty: 90 1RF cyclobenzaprine 5 mg tablet 5 mg PO TID PRN Interventions: ED Discharge Assessment Last Done: 12/10/24 14:01 Discharge Date/Time: 12/10/24 14:02 Print Language: Irish
[2024-12-10 08:47] VITALS: BP 150/67; PULSE 77; RESP 18; TEMP 36.1; O2SAT 94; BMI 27.5
[2024-12-10 09:00] LABS: MANUAL DIFF FLAG NO
[2024-12-10 09:12] LABS: Basophils Percent Auto 0.6 % (0-2); Eosinophils Percent Auto 0.8 % (0-4); Hematocrit 38.8 % (37.0-47.0); Hemoglobin 12.6 g/dl (12.0-16.0); Imm Gran Abs Auto 0.01 X10*3/uL (0.00-0.03); Imm Gran Pct Auto 0.2 % (0.0-0.4); Lymphocytes Absolute Auto 0.8 X10*3/uL (1.2-4.9); Lymphocytes Percent Auto 16.5 % (20-40); Mean Corpuscular HGB Conc 32.5 g/dl (31.0-35.0); Mean Corpuscular Hemoglobin 29.2 pg (27.0-33.0); Mean Platelet Volume 10.4 fL (9.4-12.3); Monocytes Absolute Auto 0.4 X10*3/uL (0.1-1.2); Monocytes Percent Auto 7.8 % (2-11); Neutrophils Absolute Auto 3.8 x10*3/uL (2.0-8.3); Neutrophils Percent Auto 74.1 % (45-73); Platelet Count 241 X10*3/uL (160-400); Red Blood Count 4.31 X10*6/uL (4.20-5.50); Red Cell Distribution Width 13.2 % (11.0-16.0); White Blood Count 5.1 X10*3/uL (4.8-10.8)
[2024-12-10 09:22] LABS: Alanine Aminotransferase 19 U/L (0-31); Albumin Level 4.3 g/dL (3.5-5.0); Alkaline Phosphatase 77 U/L (39-117); Anion Gap 12 (12-20); Aspartate Amino Transferase 23 U/L (5-31); Bilirubin Direct 0.2 mg/dL (0.0-0.5); Bilirubin Total 0.5 mg/dL (0.0-1.0); Blood Urea Nitrogen 14 mg/dL (9-16); Calcium 9.6 mg/dL (8.4-10.2); Carbon Dioxide 26 mmol/L (22-29); Chloride 105 mmol/L (96-108); Creatinine Clr Calc Pharmacy 81.9; Estimated Glomerular Filt Rate > 60; Glucose Random 185 mg/dL (60-115); Magnesium 1.4 mg/dL (1.6-2.6); Potassium 3.8 mmol/L (3.3-5.1); Sodium 139 mmol/L (135-145); Total Protein 8.4 g/dL (6.5-8.0)
--- NOTE | 2024-12-10 10:07 | ED_ITS ---
HPI - Abdominal Pain General Chief Complaint: Abdominal Pain Stated Complaint: Back pain Time Seen by Provider: 12/10/24 10:02 History of Present Illness ED Provider: Abdi Wang MD HPI narrative: Is a 64-year-old female with chronic sciatic type pain. She reports to me despite triage notation that she primarily has left upper buttock pain radiating down the left side. She denies motor deficits sensory changes or incontinence. She denies any anterior abdominal pain no injury or fall. Related Data Home Medications ?Medication ?Instructions ?Recorded ?Confirmed alcohol swabs pad topical TID 04/14/20 11/28/24 loratadine 10 mg tablet 10 mg PO DAILY 04/14/20 11/28/24 cyclobenzaprine 5 mg tablet 5 mg PO TID PRN 11/30/22 11/28/24 Previous Rx's ?Medication ?Instructions ?Recorded lancets 28 gauge (FreeStyle #300 ea 12/02/20 Lancets) handheld showerhead #1 ea 02/04/21 hydroxyzine HCl 10 mg tablet 10 mg PO BEDTIME PRN insomnia 10 04/14/21 days #20 tabs blood-glucose meter (FreeStyle #1 ea 05/24/21 Lite Meter kit) miscellaneous medical supply 1 ea miscellaneous DAILY #1 ea 06/03/21 bed rail #1 ea 08/02/22 Shower Chair #1 ea 10/26/22 adult diapers #120 ea 10/26/22 raised toilet seat #1 ea 10/26/22 walker #1 ea 10/26/22 walker (Ultra-Light Rollator misc) #1 ea 11/09/22 blood pressure monitor #1 ea 03/26/23 blood sugar diagnostic (FreeStyle #300 ea 05/06/23 Lite Strips) blood pressure monitor #1 ea 11/08/23 incontinence pad, liner, disp #90 ea 11/08/23 non-slip rug for tub #1 ea 11/08/23 personal wipes #300 ea 11/08/23 underpads (Bed Underpads) #100 ea 11/08/23 sertraline 100 mg tablet 150 mg (1.5 x 100 mg) PO DAILY 01/13/24 #135 tabs sennosides 8.6 mg tablet (Senna 17.2 mg (2 x 8.6 mg) PO BEDTIME 01/29/24 Laxative) #60 tabs trazodone 100 mg tablet 100 mg PO BEDTIME 90 days #90 tabs 04/26/24 albuterol sulfate 90 mcg/actuation 2 puff PO Q4-6H PRN shortness of 05/28/24 aerosol inhaler breath or wheezing #8.5 ea cholecalciferol (vitamin D3) 50 50 mcg PO DAILY 90 days #90 caps 06/04/24 mcg (2,000 unit) capsule ibuprofen 800 mg tablet 800 mg PO Q8H PRN pain 30 days #90 06/23/24 tabs ezetimibe 10 mg tablet 10 mg PO DAILY #90 tabs 06/29/24 rosuvastatin 40 mg tablet 40 mg PO DAILY #90 tabs 06/29/24 lisinopril 20 1 tab PO DAILY 90 days #90 tabs 09/18/24 mg-hydrochlorothiazide 12.5 mg tablet sitagliptin phosphate 25 mg tablet 25 mg PO DAILY 90 days #90 tabs 10/14/24 (Januvia) alosetron 0.5 mg tablet (Lotronex) 0.5 mg PO BID #60 tabs 10/28/24 famotidine 40 mg tablet 40 mg PO BEDTIME #90 tabs 10/28/24 metoclopramide HCl 10 mg tablet 10 mg PO QID 30 days #120 tabs 10/28/24 pantoprazole 40 mg tablet,delayed 40 mg PO DAILY #90 tabs 10/28/24 release simethicone 125 mg chewable tablet 125 mg PO BID-QID abdominal 10/28/24 (Gas Relief (simethicone)) distention #120 tabs nystatin 100,000 unit/mL oral 6 ml PO QID 14 days #336 mL 10/29/24 suspension rosuvastatin 20 mg tablet 20 mg PO DAILY #90 tabs 10/29/24 dapagliflozin propan 2.5 1 tab PO DAILY 90 days #90 ea 11/24/24 mg-metformin ER 1,000 mg tablet,ext rel 24hr (Xigduo XR) cefpodoxime 200 mg tablet 200 mg PO BID 9 days #18 tabs 12/10/24 clonazepam 0.5 mg tablet 0.5 mg PO DAILY PRN anxiety 30 12/10/24 days #30 tabs magnesium 250 mg tablet 250 mg PO DAILY #7 tabs 12/10/24 methocarbamol 750 mg tablet 750 mg PO BEDTIME #7 tabs 12/10/24 Allergies Allergy/AdvReac Type Severity Reaction Status Date / Time amoxicillin Allergy Unknown pruritus Verified 12/10/24 08:48 penicillin G Allergy Unknown pruritis Verified 12/10/24 08:48 duloxetine [From Cymbalta] AdvReac Intermediate palpitations Verified 12/10/24 08:48 and sob dulaglutide [Trulicity] AdvReac Unknown abdominal Verified 12/10/24 08:48 pain PMFSH Past Medical History Medical History (Updated 12/11/24 @ 00:01 by Israel Lopez) Irritable bowel syndrome with diarrhea Constipation Pre-op evaluation Back pain Physical exam Transaminitis Urinary incontinence Diabetes mellitus Tingling of both feet Bilateral leg and foot pain Lumbosacral strain Depression Insomnia Snoring Hypersomnia Urge urinary incontinence Anxiety and depression Obesity (BMI 30-39.9) Type 2 diabetes mellitus with hyperglycemia Fibromyalgia History of herniated intervertebral disc History of TIA (transient ischemic attack) Osteopenia Allergic rhinitis Migraine aura without headache Osteoarthritis Asthma Type 2 diabetes mellitus with diabetic polyneuropathy Hyperlipidemia LDL goal <70 Vitamin D insufficiency Hypertension Surgical History History of carpal tunnel surgery History of cholecystectomy History of cervical biopsy H/O colonoscopy History of bilateral tubal ligation History of partial hysterectomy History of bladder suspension procedure History of appendectomy Family History Family History Father Kidney failure Diabetes CVD (cardiovascular disease) Hypertension Mother Diabetes Hypertension Social History Social History Housing: House Unable to assess alcohol history related to: Unknown Alcohol intake: never Patient Tobacco Use Status: Never used Tobacco Smoked in Last 30 Days: No e-Cigarette/Vaping Use: Never Used Second Hand Smoke Exposure: No Use of substances other than those prescribed or required for medical reasons: Unknown Advance Directives: No Advance Directives Information Provided: Yes service: No Current occupational status: retired Cognitive needs: No Hearing needs: No Vision needs: No Physical Exam ED Vital Signs: Vital Signs - 24 hr 12/10/24 08:47 12/10/24 10:47 12/10/24 12:00 Temperature 96.9 F 98.4 F 98.4 F Pulse Rate 77 70 80 Respiratory Rate 18 17 15 Blood Pressure 150/67 H 131/62 121/79 Pulse Oximetry 94 95 95 Oxygen Delivery Method Room Air Room Air Room Air BMI result Body Mass Index 27.5 Const Other: EXAM: Gen: Alert, awake, well appearing, well hydrated. Head: Atraumatic Eyes: Anicteric, Normal conjunctiva. ENT: Moist mucosa, no pallor. ? Neck: Supple. Respiratory: Breathing comfortably, No distress.Clear to auscultation bilaterally, symmetric chest expansion, No wheeze, rales, ronchi. Cardiovascular: Regular rate and rhythm. No murmurs or rub. Well perfused periphery, warm extremities. No edema. ? Abdominal: No FOCAL TENDERNESS. Soft, no objective distension. No palpable masses or obvious organomegaly. ?No guarding, no rebound tenderness or other peritoneal findings. : No flank tenderness. Neuro: Alert. Gross movement of all extremities intact. ?Sensation intact to light touch throughout the lower extremities 5/5 strength bilateral lower legs and proximally MSK: Tender left upper buttock with no bruising no midline lumbar or sacral tenderness. Vital signs: See flowsheet Medical Decision Making Medical Decision Making MDM Narrative: 64-year-old female with left upper buttock pain sciatic distribution without red flag signs or symptoms to suggest acute cord compression or cauda equina syndrome. Acute on chronic sciatica/radiculopathy most likely. Could be piriformis syndrome. Multimodal analgesia. Prior to my arrival the patient had lab work and CT ordered. No acute findings on either of these. Lab Data 12/10/24 08:55 12/10/24 08:55 Labs: Lab Results 12/10/24 12/10/24 Range/Units 08:55 11:46 WBC 5.1 (4.8-10.8) X10*3/uL RBC 4.31 (4.20-5.50) X10*6/uL Hgb 12.6 (12.0-16.0) g/dl Hct 38.8 (37.0-47.0) % MCV 90.0 (80.0-98.0) fL MCH 29.2 (27.0-33.0) pg MCHC 32.5 (31.0-35.0) g/dl RDW 13.2 (11.0-16.0) % Plt Count 241 (160-400) X10*3/uL MPV 10.4 (9.4-12.3) fL Immature Gran % (Auto) 0.2 (0.0-0.4) % Neut % (Auto) 74.1 H (45-73) % Lymph % (Auto) 16.5 L (20-40) % Lane % (Auto) 7.8 (2-11) % Eos % (Auto) 0.8 (0-4) % Baso % (Auto) 0.6 (0-2) % Lymph # (Auto) 0.8 L (1.2-4.9) X10*3/uL Lane # (Auto) 0.4 (0.1-1.2) X10*3/uL Eos # (Auto) 0.0 (0.0-0.4) X10*3/uL Baso # (Auto) 0.0 (0.0-0.2) X10*3/uL Abs Immat Gran (auto) 0.01 (0.00-0.03) X10*3/uL Absolute Neuts (auto) 3.8 (2.0-8.3) x10*3/uL Absolute Nucleated RBC 0.000 (0.0-0.012) X10*3/uL Nucleated RBC % (auto) 0.0 (0.0-0.2) /100WBC Sodium 139 (135-145) mmol/L Potassium 3.8 (3.3-5.1) mmol/L Chloride 105 (96-108) mmol/L Carbon Dioxide 26 (22-29) mmol/L Anion Gap 12 (12-20) BUN 14 (9-16) mg/dL Creatinine 0.66 (0.5-1.4) mg/dL Estim Creat Clear Calc 81.9 Estimated GFR > 60 Random Glucose 185 H (60-115) mg/dL Calcium 9.6 (8.4-10.2) mg/dL Magnesium 1.4 L* (1.6-2.6) mg/dL Total Bilirubin 0.5 (0.0-1.0) mg/dL Direct Bilirubin 0.2 (0.0-0.5) mg/dL AST 23 (5-31) U/L ALT 19 (0-31) U/L Alkaline Phosphatase 77 (39-117) U/L Total Protein 8.4 H (6.5-8.0) g/dL Albumin 4.3 (3.5-5.0) g/dL Lipase 782 H (8-78) U/L Urine Color Yellow Urine Appearance Cloudy Urine pH 5.5 (5.0-9.0) Ur Specific [place] >= 1.030 H (1.005-1.025) Urine Protein Negative (Neg-Trace) mg/dL Urine Glucose (UA) >=1000 H (Negative) mg/dL Urine Ketones Trace (Negative) mg/dL Urine Blood Negative (Negative) Urine Nitrite Positive H (Negative) Ur Leukocyte Esterase Small (1+) H (Negative) Urine RBC 0-2 (0-2) /HPF Urine WBC >50 H (0-5) /HPF Ur Squamous Epith Cells 3-5 (0-2) /HPF Urine Bacteria 4+ (None Seen) Hyaline Casts 0-2 (0-2) /LPF Medications Administered Discontinued Medications Generic Name Dose Route Start Last Admin Trade Name Freq PRN Reason Stop Dose Admin Cefuroxime Axetil 250 mg 12/10/24 12:42 12/10/24 13:54 Cefuroxime Axetil 250 Mg Tablet PO 12/10/24 12:43 250 mg ONCE ONE Administration Dexamethasone 6 mg 12/10/24 11:53 12/10/24 13:54 Dexamethasone 6 Mg Tablet PO 12/10/24 11:54 6 mg ONCE ONE Administration Magnesium Sulfate 2 gm in 50 mls @ 150 mls/hr 12/10/24 10:06 12/10/24 11:03 Magnesium Sulfate/H2o IV 12/10/24 10:25 Infused ONCE ONE Infusion Ketorolac Tromethamine 15 mg 12/10/24 11:53 12/10/24 12:26 Ketorolac Tromethamine 15 Mg/Ml Vial IVPUSH 12/10/24 11:54 15 mg ONCE ONE Administration Lidocaine 1 patch 12/10/24 11:53 12/10/24 12:26 Lidocaine 4 % Patch Adh..Patch TRANSDERMA 12/10/24 11:54 1 patch ONCE ONE Administration Protocol Methocarbamol 750 mg 12/10/24 11:53 12/10/24 12:26 Methocarbamol 750 Mg Tablet PO 12/10/24 11:54 750 mg ONCE ONE Administration Discharge Plan Discharge Clinical Impression: Urinary tract infection, Radiculopathy, Elevated lipase, Hypomagnesemia Patient Disposition: Home, Self-Care Instructions: Magnesium Sulfate (By mouth), Urinary Tract Infection in Women (DC), Hypomagnesemia (ED) Additional Instructions: _ DISCHARGE DIAGNOSES: Lumbar radiculopathy/sciatica likely causing upper left buttock pain UTI possibly pyelonephritis or upper urinary tract infection Your magnesium level was low we repleted this with intravenous magnesium but we will prescribe a few more days of supplemental magnesium by mouth. You will need to have this rechecked in several days by your doctor HISTORY OF PRESENTATION: ?Back pain EMERGENCY DEPARTMENT COURSE,TESTS, TREATMENTS: While in the ED today she had a CT scan which showed no stones or other acute pathology DISCHARGE MEDICATIONS: ?[We have made no changes to your regular medication regimen] we have added an antibiotic for the next 9 days FOLLOW-UP: ?Call your primary or general physician soon as possible to discuss your symptoms, your ED visit and to discuss follow up plans Call your primary doctor he should be seen within a few days for follow up INSTRUCTIONS ?& RETURN PRECAUTIONS: If any symptoms change first call your primary physician, if it is after-hours your primary doctors office should have a provider automotive collision estimator you can speak with. If the symptoms are severe or very concerning to you then call 911 or return to the ED. Return for high fever, shaking chills, severe or intractable pain or other severe symptoms as we discussed Abdi Wang MD Emergency Physician [facility] Prescriptions: New cefpodoxime 200 mg tablet 200 mg PO BID 9 Days Qty: 18 0RF Rx Instructions: must administer with a meal/food methocarbamol 750 mg tablet 750 mg PO BEDTIME Qty: 7 0RF magnesium 250 mg tablet 250 mg PO DAILY Qty: 7 0RF No Action (DME) handheld showerhead See Rx Instructions .Route .MEDSUPPLY Qty: 1 0RF Rx Instructions: As directed (DME) blood-glucose meter [FreeStyle Lite Meter] Kit See Rx Instructions .ROUTE .MEDSUPPLY Qty: 1 0RF Rx Instructions: three times a day miscellaneous medical supply Misc 1 ea miscellaneous DAILY Qty: 1 0RF Rx Instructions: Weekly Medication Box (DME) bed rail See Rx Instructions .Route .MEDSUPPLY Qty: 1 0RF Rx Instructions: As directed (DME) walker Misc See Rx Instructions .Route Qty: 1 0RF Rx Instructions: As directed (DME) Shower Chair Misc See Rx Instructions .Route Qty: 1 0RF Rx Instructions: As directed (DME) raised toilet seat See Rx Instructions .Route .MEDSUPPLY Qty: 1 0RF Rx Instructions: As directed (DME) adult diapers medium See Rx Instructions .Route .MEDSUPPLY Qty: 120 11RF Rx Instructions: As directed (DME) Ultra-Light Rollator Misc See Rx Instructions .Route Qty: 1 0RF Rx Instructions: As directed (DME) blood pressure monitor Kit See Rx Instructions .Route Qty: 1 0RF Rx Instructions: As directed (DME) FreeStyle Lite Strips Strip See Rx Instructions .ROUTE .MEDSUPPLY Qty: 300 3RF Rx Instructions: As directed three times a day (DME) non-slip rug for tub See Rx Instructions .Route .MEDSUPPLY Qty: 1 0RF Rx Instructions: As directed (DME) underpads [Bed Underpads] Pad See Rx Instructions .Route Qty: 100 6RF Rx Instructions: As directed (DME) blood pressure monitor Kit See Rx Instructions .Route Qty: 1 0RF Rx Instructions: As directed (DME) incontinence pad, liner, disp Pad See Rx Instructions .Route Qty: 90 11RF Rx Instructions: Use 1 pad three times a day (DME) personal wipes See Rx Instructions .Route .MEDSUPPLY Qty: 300 6RF Rx Instructions: As directed sertraline 100 mg tablet 150 mg PO DAILY Qty: 135 0RF trazodone 100 mg tablet 100 mg PO BEDTIME 90 Days Qty: 90 1RF albuterol sulfate 90 mcg/actuation HFA aerosol inhaler 2 puff PO Q4-6H PRN (Reason: shortness of breath or wheezing) Qty: 8.5 0RF cholecalciferol (vitamin D3) 50 mcg (2,000 unit) capsule 50 mcg PO DAILY 90 Days Qty: 90 1RF ibuprofen 800 mg tablet 800 mg PO Q8H PRN (Reason: pain) 30 Days Qty: 90 1RF ezetimibe 10 mg tablet 10 mg PO DAILY Qty: 90 3RF rosuvastatin 40 mg tablet 40 mg PO DAILY Qty: 90 3RF lisinopril-hydrochlorothiazide 20-12.5 mg tablet 1 tab PO DAILY 90 Days Qty: 90 1RF Januvia 25 mg tablet 25 mg PO DAILY 90 Days Qty: 90 0RF Xigduo XR 2.5-1,000 mg tablet, IR - ER, biphasic 24hr 1 tab PO DAILY 90 Days Qty: 90 1RF clonazepam 0.5 mg tablet 0.5 mg PO DAILY PRN (Reason: anxiety) 30 Days Qty: 30 0RF alcohol swabs Pads, Medicated topical TID loratadine 10 mg tablet 10 mg PO DAILY hydroxyzine HCl 10 mg tablet 10 mg PO BEDTIME PRN (Reason: insomnia) 10 Days Qty: 20 0RF Rx Instructions: Take 1-2 tablets at bedtime as needed for sleep (DME) lancets [FreeStyle Lancets] 28 gauge misc See Rx Instructions .ROUTE .MEDSUPPLY Qty: 300 3RF Rx Instructions: As directed three time a day sennosides [Senna Laxative] 8.6 mg tablet 17.2 mg PO BEDTIME Qty: 60 6RF nystatin 100,000 unit/mL suspension 6 ml PO QID 14 Days Qty: 336 0RF Rx Instructions: swish and swallow rosuvastatin 20 mg tablet 20 mg PO DAILY Qty: 90 1RF alosetron [Lotronex] 0.5 mg tablet 0.5 mg PO BID Qty: 60 11RF famotidine 40 mg tablet 40 mg PO BEDTIME Qty: 90 2RF metoclopramide HCl 10 mg tablet 10 mg PO QID 30 Days Qty: 120 6RF simethicone [Gas Relief (simethicone)] 125 mg tablet,chewable 125 mg PO BID-QID Qty: 120 11RF pantoprazole 40 mg tablet,delayed release (DR/EC) 40 mg PO DAILY Qty: 90 1RF cyclobenzaprine 5 mg tablet 5 mg PO TID PRN Interventions: ED Discharge Assessment Last Done: 12/10/24 14:01 Discharge Date/Time: 12/10/24 14:02 Print Language: Tajik
--- NOTE | 2024-12-10 10:08 | ECG_ITS ---
Test Reason : ABDOMINAL PAIN Blood Pressure : */* mmHG Vent. Rate : 67 BPM Atrial Rate : 67 BPM P-R Int : 148 ms QRS Dur : 78 ms QT Int : 402 ms P-R-T Axes : 30 -2 -13 degrees QTcB Int : 424 ms Normal sinus rhythm Nonspecific ST and T wave abnormality Abnormal ECG When compared with ECG of 14-Mar-2022 10:38, No significant change was found Referred By: Abdi Wang Electronically Signed By: LETICIA FLEMING MD
[2024-12-10] MEDS: Magnesium Sulfate/H2O 2 GM/50 ML PIGGYBACK IV (10:41)
[2024-12-10 10:47] VITALS: BP 131/62; PULSE 70; RESP 17; TEMP 36.9; O2SAT 95
[2024-12-10 11:53] LABS: Appearance Urine Cloudy; Color Urine Yellow; Glucose Urine UA >=1000 mg/dL (Negative); Leukocyte Esterase Urine Small (1+) (Negative); Nitrite Urine Positive (Negative); PH 5.5 (5.0-9.0); Specific Gravity - Urine >= 1.030 (1.005-1.025); UMIC TRIGGER UACC YES; Urine Blood Negative (Negative); Urine Ketones Trace mg/dL (Negative); Urine Protein Negative (Neg-Trace)
[2024-12-10 11:58] LABS: Bacteria Urine 4+ (None Seen); Hyaline Casts Urine 0-2 /LPF (0-2); RBC Urine 0-2 /HPF (0-2); UACC Culture Trigger YES; WBC Urine >50 /HPF (0-5)
[2024-12-10 12:00] VITALS: BP 121/79; PULSE 80; RESP 15; TEMP 36.9; O2SAT 95
[2024-12-10] MEDS: methocarbamoL 750 MG TABLET PO (12:26)
[2024-12-10] MEDS: Ketorolac Tromethamine 15 MG/ML VIAL IVPUSH (12:26)
[2024-12-10] MEDS: Lidocaine 4 % Patch ADH..PATCH 1 PATCH TRANSDERMA (12:26)
[2024-12-10] MEDS: dexAMETHasone 6 MG TABLET PO (13:54)
[2024-12-10] MEDS: cefuroxime axetiL 250 MG TABLET PO (13:54)
[2024-12-10 14:01] VITALS: BP 121/79; PULSE 80; RESP 16; TEMP 36.9; O2SAT 95
[2024-12-10 16:31] LABS: Lipase 782 U/L (8-78)
== END 2024-12-10 14:02 | disposition home or self-care (01) ==
PROVIDERS: Emergency Medicine; Emergency Provider Emergency Medicine; PCP Internal Medicine
DX: N39.0 Urinary tract infection, site not specified (principal); M54.16 Radiculopathy, lumbar region; R74.8 Abnormal levels of other serum enzymes; E83.42 Hypomagnesemia; Z79.899 Other long term (current) drug therapy
CPT/HCPCS: 36415; 74176; 80048; 80076; 81001; 83690; 83735; 85025; 87086; 87088; 87186; 93005; 96365; 96375; 99284; 99285; J1885; J3475; J8540

== ENCOUNTER → 2024-12-10 08:45 | Outpatient (BNV) | payer OTHER, SELFPAY | PROVIDERS: Emergency Provider Emergency Medicine; PCP Internal Medicine; Visit Provider Radiology Diagnostic Radiology | DX: J98.11 Atelectasis (principal) | CPT/HCPCS: 74176 ==

== ENCOUNTER → 2024-12-10 10:08 | Outpatient (BNV) | payer OTHER, SELFPAY | PROVIDERS: Emergency Provider Emergency Medicine; PCP Internal Medicine; Visit Provider Internal Medicine Cardiovascular Disease | DX: R94.31 Abnormal electrocardiogram [ECG] [EKG] (principal); R10.9 Unspecified abdominal pain | CPT/HCPCS: 93010 ==

== ENCOUNTER 2024-12-17 14:47 | Outpatient (AMB) | payer OTHER, SELFPAY ==
[2024-12-17 15:05] VITALS: BP 110/68; PULSE 86; O2SAT 96; BMI 27.6
--- NOTE | 2024-12-17 15:05 | MHC.OFFVIS ---
Vital Signs 12/17/24 15:05 Height 5 ft 4 in Weight 161 lb BMI 27.6 BP 110/68 Blood Pressure Location Lt brachial Position Sitting Pulse 86 Pulse Source Pulse Oximeter Pulse Oximetry (%) 96 Oxygen Delivery Method Room Air Intake Visit Reasons: 6 month f/u Intake Note: Patient presents 6 month follow up for DIANA/memory loss Fur Cutter Required: No Fur Cutter Name: Daughter Interpreted Accompanied by: Daughter Allergies amoxicillin Allergy (Unknown, Verified 12/17/24 15:11) pruritus penicillin G Allergy (Unknown, Verified 12/17/24 15:11) pruritis duloxetine [From Cymbalta] Adverse Reaction (Intermediate, Verified 12/17/24 15:11) palpitations and sob dulaglutide [Trulicity] Adverse Reaction (Unknown, Verified 12/17/24 15:11) abdominal pain HPI Comments Details: 63-yr-old female presents for follow-up visit for sleep apnea. Pt reports she can wake up feeling confused, with not right in space dizziness, occipital head pressure, neck pain. This started about 6 months ago- occassionally but lasting all day, and began to increase to almost daily in the last month. She denies h/o migraine, however, on chart review patient does have documented diagnosis of migraine without aura. And upon clarifying with patient, patient states that she did not know she had a diagnosis of migraine, however she does endorse a history of headaches associated with light and sound sensitivity and nausea. She also notes she continues to have painful and white coated tongue- she states she took the nystatin as ordered by PCP office-unclear for how long. She did undergo a brain MRI without contrast in June of 2024, ordered by PCP for headache evaluation, which was unremarkable other than nonspecific white matter changes consistent with chronic microangiopathic changes. More recently, had a [facility] eval for abdominal/back pain- workup was notable for UTI elevated lipase at 782, low magnesium at 1.4 CBC showed WBC 5.1 with left shift, neut 74 %. dx'd w/ UTI/possible pyelonephritis, lumbar radiculopathy/sciatica with left buttock pain, hypomagnesemia. Patient was discharged on cefpodoxime 200 mg b.i.d. times no gaze, methocarbamol familiar 50 mg q.h.s. and magnesium 250 mg daily. Per PCP note in mid November 2024, patient had been off of her diabetic regimen, and her blood sugars were running in the 400s in last hemoglobin A1c greater than 9% She is followed closely by [facility]- and has an upcoming appointment. Patient reports she is using her CPAP consistently, is overall sleeping well use, however she would like to try a new mask as her current mask is leaking and causing dry mouth. She is cleaning and changing her CPAP supplies routinely. She is using distilled water in her CPAP water reservoir. [address], [facility] Email: [email or web address] Compliance Report Usage 11/17/2024 - 12/16/2024 Overall usage 87% Usage greater than 4 hours 77% Average usage on days used 6 hours and 26 minutes AirSense 10 AutoSet Serial number [id number] Mode: APAP 5-20 cmH2O EPR level 2 Maximum Pressure 10.5 cm H2O Median Leaks - 0.1 L/min Maximum leaks- 68.8 L/min Residual AHI: 0.7 per hour [facility] Medical History (Updated 12/17/24 @ 18:49 by MOISES Mendoza) Irritable bowel syndrome with diarrhea Constipation Pre-op evaluation Back pain Physical exam Transaminitis Urinary incontinence Diabetes mellitus Tingling of both feet Bilateral leg and foot pain Lumbosacral strain Depression Insomnia Snoring Hypersomnia Urge urinary incontinence Anxiety and depression Obesity (BMI 30-39.9) Type 2 diabetes mellitus with hyperglycemia Fibromyalgia History of herniated intervertebral disc History of TIA (transient ischemic attack) Osteopenia Allergic rhinitis Migraine aura without headache Osteoarthritis Asthma Type 2 diabetes mellitus with diabetic polyneuropathy Hyperlipidemia LDL goal <70 Vitamin D insufficiency Hypertension Surgical History History of carpal tunnel surgery History of cholecystectomy History of cervical biopsy H/O colonoscopy History of bilateral tubal ligation History of partial hysterectomy History of bladder suspension procedure History of appendectomy Family History Father Kidney failure Diabetes CVD (cardiovascular disease) Hypertension Mother Diabetes Hypertension Social History Housing: House Unable to assess alcohol history related to: Unknown Alcohol intake: never Patient Tobacco Use Status: Never used Tobacco e-Cigarette/Vaping Use: Never Used Second Hand Smoke Exposure: No service: No Current occupational status: retired Cognitive needs: No Hearing needs: No Vision needs: No Physical Exam Vital Signs: Last Vital Signs Pulse 86 12/17/24 15:05 BP 110/68 12/17/24 15:05 Pulse Ox 96 12/17/24 15:05 Oxygen Delivery Method Room Air 12/17/24 15:05 BMI result Body Mass Index 27.6 Const General: no acute distress Orientation/consciousness: patient oriented x3 Resp Effort & Inspection: able to speak in complete sentences Neuro Other: White tongue coating Mild posterior cervical tightness General: patient oriented x3 Cranial nerves: Yes CN's II-XII intact bilaterally and Yes Bilaterally intact EOM present Gait exam (Neuro): Normal gait present Motor exam (neuro): 5/5 motor strength present throughout Psych Mental Status: mental status grossly normal Speech and movement: Clear speech present Attitude: cooperative Assessment & Plan Assessment & Plan (1) DIANA (obstructive sleep apnea): Comment: Mild degree of sleep apnea with increased severity in REM sleep. The AHI was 11/hr and oxygen jenaro was 74%. Code(s): G47.33 - Obstructive sleep apnea (adult) (pediatric) Category: Medical (2) Memory loss: Comment: she did well on MMSE - the cognitive issues are likely related to mood and sleep issues Code(s): R41.3 - Other amnesia Category: Medical (3) Thrush: Code(s): B37.0 - Candidal stomatitis Category: Medical (4) Chronic migraine without aura: Code(s): G43.709 - Chronic migraine without aura, not intractable, without status migrainosus Category: Medical Qualifiers: Status migrainosus presence: without status migrainosus Intractability: not intractable Qualified Code(s): G43.709 - Chronic migraine without aura, not intractable, without status migrainosus Plan For worsening headache, with recent brain MRI in June 2024- for the same headache being unremarkable with only nonspecific white matter changes consistent with chronic microangiopathic changes likely secondary to diabetes, HTN, HLD. She has had several factors, that may be exacerbating her history of migraine without aura headaches, including episodes of hyperglycemia, hypomagnesemia, UTI with possible pyelonephritis, elevated lipase. We will check follow-up labs. Follow-up with GI and PCP as scheduled. For migraine prevention treatment: Start riboflavin 400 mg daily in the morning Start magnesium oxide 400 mg q.h.s. Continue sertraline- may benefit migraine as well. Preventive treatment contraindications: Beta-blockers due to asthma diagnosis and diabetes For acute migraine treatment: Advised to minimize ibuprofen/NSAID use due to poorly-controlled diabetes. Trial Ubrogepant (Ubrelvy) 100mg tab, 1/2 - 1 tab (50-100mg) at onset of headache, may repeat in 2 hours. Max of 2 tabs (200mg) per 24 hours.Potential adverse effects, include but are not limited to fatigue, nausea, dry mouth, constipation Acute migraine treatment contraindications: All triptans and DHE due to uncontrolled hypertension. For DIANA: Continue APAP 5-20 cmH2O w/ EPR 2 nightly > 4 hours, as pt continues to have good clinical effect from use. As she continues to have painful white coated tongue, I will refill her nystatin order, if ineffective, advised to follow-up with PCP. We will request a new mask fitting Patient advised she may adjust her humidification levels at home as needed. Clean CPAP machine and supplies routinely. Change CPAP supplies routinely. Use distilled water in CPAP water reservoir. Pt to contact us or respiratory company with any questions or concerns. Pt to follow-up in 6 months or sooner prn. Orders: Orders Complete Blood Count Auto Diff Today E78.00 - Pure hypercholesterolemia, unspecified, E83.42 - Hypomagnesemia, R53.83 - Other fatigue, R74.8 - Abnormal levels of other serum enzymes Comprehensive Met. Panel Today E78.00 - Pure hypercholesterolemia, unspecified, E83.42 - Hypomagnesemia, R53.83 - Other fatigue, R74.8 - Abnormal levels of other serum enzymes Magnesium Today E78.00 - Pure hypercholesterolemia, unspecified, E83.42 - Hypomagnesemia, R53.83 - Other fatigue, R74.8 - Abnormal levels of other serum enzymes Lipase Today E78.00 - Pure hypercholesterolemia, unspecified, E83.42 - Hypomagnesemia, R53.83 - Other fatigue, R74.8 - Abnormal levels of other serum enzymes Medications: New ubrogepant (Ubrelvy) take at onset of migraine, may repeat in 2hrs 50 - 100 mg (0.5 - 1 x 100 mg) PO ONCE 30 days PRN 16 tabs 3RF migraine headache Changed From nystatin swish and swallow 6 mL PO QID 14 days 336 mL 0RF B37.0 - Candidal stomatitis To nystatin swish and swallow 6 mL PO QID 21 days 550 mL 0RF B37.0 - Candidal stomatitis Coding Level of Care Code Est Pt Level 4 (03506) Complex EM visit Add On G2211 Diagnoses DIANA (obstructive sleep apnea) G47.33 Memory loss R41.3 Thrush B37.0 Chronic migraine without aura without status migrainosus, not intractable G43.709 Status migrainosus presence: without status migrainosus Intractability: not intractable
== END 2024-12-17 16:05 | disposition home or self-care (01) ==
LOC: HO.HSMS 14:48
PROVIDERS: PCP Internal Medicine; Visit Provider Nurse Practitioner Family
DX: G47.33 Obstructive sleep apnea (adult) (pediatric) (principal); R41.3 Other amnesia; B37.0 Candidal stomatitis; G43.709 Chronic migraine without aura, not intractable, without status migrainosus
CPT/HCPCS: 99214; G2211

== ENCOUNTER → 2024-12-17 14:47 | Outpatient (BNVA) | payer OTHER, SELFPAY | PROVIDERS: PCP Internal Medicine; Visit Provider Nurse Practitioner Family | DX: G43.709 Chronic migraine without aura, not intractable, without status migrainosus (principal); G47.33 Obstructive sleep apnea (adult) (pediatric); R41.3 Other amnesia; B37.0 Candidal stomatitis | CPT/HCPCS: 99212 ==

== ENCOUNTER 2024-12-29 09:37 | Outpatient (REF) | payer OTHER, SELFPAY ==
[2024-12-29 09:50] LABS: MANUAL DIFF FLAG NO
[2024-12-29 10:36] LABS: Basophils Percent Auto 0.6 % (0-2); Eosinophils Absolute Auto 0.1 X10*3/uL (0.0-0.4); Hematocrit 38.1 % (37.0-47.0); Hemoglobin 12.4 g/dl (12.0-16.0); Imm Gran Abs Auto 0.01 X10*3/uL (0.00-0.03); Imm Gran Pct Auto 0.2 % (0.0-0.4); Mean Corpuscular HGB Conc 32.5 g/dl (31.0-35.0); Mean Corpuscular Hemoglobin 29.2 pg (27.0-33.0); Mean Corpuscular Volume 89.6 fL (80.0-98.0); Mean Platelet Volume 10.6 fL (9.4-12.3); Monocytes Absolute Auto 0.4 X10*3/uL (0.1-1.2); Monocytes Percent Auto 7.6 % (2-11); Neutrophils Absolute Auto 3.5 x10*3/uL (2.0-8.3); Neutrophils Percent Auto 70.6 % (45-73); Platelet Count 194 X10*3/uL (160-400); Red Blood Count 4.25 X10*6/uL (4.20-5.50); Red Cell Distribution Width 12.9 % (11.0-16.0)
[2024-12-29 10:59] LABS: Alanine Aminotransferase 30 U/L (0-31); Albumin Level 4.5 g/dL (3.5-5.0); Alkaline Phosphatase 69 U/L (39-117); Anion Gap 13 (12-20); Aspartate Amino Transferase 32 U/L (5-31); Bilirubin Total 0.5 mg/dL (0.0-1.0); Blood Urea Nitrogen 21 mg/dL (9-16); Carbon Dioxide 29 mmol/L (22-29); Chloride 102 mmol/L (96-108); Estimated Glomerular Filt Rate > 60; Glucose Random 202 mg/dL (60-115); Lipase 168 U/L (8-78); Magnesium 1.6 mg/dL (1.6-2.6); Potassium 4.2 mmol/L (3.3-5.1); Sodium 140 mmol/L (135-145); Total Protein 8.1 g/dL (6.5-8.0)
== END 2024-12-29 09:38 | disposition home or self-care (01) ==
LOC: HO.LAB 09:37
PROVIDERS: PCP Internal Medicine; Visit Provider Nurse Practitioner Family
DX: E83.42 Hypomagnesemia (principal); R74.8 Abnormal levels of other serum enzymes; R53.83 Other fatigue; E78.00 Pure hypercholesterolemia, unspecified
CPT/HCPCS: 36415; 80053; 83690; 83735; 85025

== ENCOUNTER 2024-12-31 13:23 | Outpatient (AMB) | payer OTHER, SELFPAY ==
--- NOTE | 2024-12-31 13:28 | MHC.OFFVIS ---
Vital Signs 12/31/24 13:31 Height 5 ft 3.5 in Weight 158 lb 11.725 oz BMI 27.7 BP 140/60 H Blood Pressure Location Lt brachial Position Sitting Pulse 73 Intake Visit Reasons: IBS-D follow up Intake Note: Saniya presents in the office as a follow up for IBS. CC: Patients states that she is having pains in the stomach all over but denies irreular bowel movements. Lathe Tender Required: Yes Allergies amoxicillin Allergy (Unknown, Verified 12/31/24 13:29) pruritus penicillin G Allergy (Unknown, Verified 12/31/24 13:29) pruritis duloxetine (From Cymbalta) Adverse Reaction (Intermediate, Verified 12/31/24 13:29) palpitations and sob dulaglutide (Trulicity) Adverse Reaction (Unknown, Verified 12/31/24 13:29) abdominal pain HPI HPI IBS-D follow up: Details: Assessment & Plan (1) Irritable bowel syndrome with diarrhea: Comment: diarrhea more dominant, but at times becomes constipated, Pattern varies. Will trial Senna prn constipation and daily fiber supplement. Bentyl on diarrhea/ cramping days. Has an element of post cholecystectomy syndrome Code(s): K58.0 - Irritable bowel syndrome with diarrhea Category: Medical (2) GERD (gastroesophageal reflux disease): Code(s): K21.9 - Gastro-esophageal reflux disease without esophagitis Category: Medical Qualifiers: Esophagitis presence: without esophagitis Qualified Code(s): K21.9 - Gastro-esophageal reflux disease without esophagitis (3) Gastroparesis: Code(s): K31.84 - Gastroparesis Category: Medical Plan [place] #Edyta Live She continues on her famotidine in the evening, pantoprazole in the morning and her Reglan 10 mg 4 times a day She is again struggling with abdominal pain, nausea and diarrhea and severe gases and bloating. The pain is mostly just to the left of midline in the upper abd under ribs. She is taking 1 senna a night, and I advise her to stop the senna completely since the diarrhea is watery. It appears she never received the lotronex, so will re try to get this at 0.5mg bid. At the next appointment consider repeating ultrasound and labs to monitor her GO. Next avail. Medications: New alosetron (Lotronex) 0.5 mg PO BID 60 tabs 11RF K58.0 - Irritable bowel syndrome with diarrhea simethicone (Gas Relief (simethicone)) 125 mg PO BID-QID 120 tabs 11RF abdominal distention Refilled famotidine 40 mg PO BEDTIME 90 tabs 2RF K21.9 - Gastro-esophageal reflux disease without esophagitis pantoprazole 40 mg PO DAILY 90 tabs 1RF K21.9 - Gastro-esophageal reflux disease without esophagitis metoclopramide HCl 10 mg PO QID 120 tabs 6RF 30 days K31.84 - Gastroparesis On Hold sennosides (Senna Laxative) Hold Comment: Doctor's Order 17.2 mg (2 x 8.6 mg) PO BEDTIME 60 tabs 6RF K59.00 - Constipation, unspecified TODAYS VISIT [place] #[id number] She still has abd pain but now she is veyr constipated. NOW THE UPPER ABDOMINAL PAIN has changed it is more just below the ribs and is spreading across the upper abdomen. Before it was more towards the periumbilical area and to the left. This is significant because she presented to the ER with increasing complaints of back pain radiating into the buttocks and at that time they noted she had an elevated lipase. It was quite elevated in the 700s earlier in November and then a repeat a couple weeks later it was down to 168 but still quite elevated. Cat scan of the abdomen pelvis was unremarkable. This is concerning because now I am fearful that this is not just IBS but possibly is pancreatitis most likely from a medication side effect. She is on both Januvia and as a BERTO which both can cause pancreatitis as a side effect. I am going to get an MRCP to take a closer look at this area in the meantime because she is constipated we are going to decrease the Lotronex to once a day dosing. Return office visit in 2 weeks I have asked her to bring all of her medications in a bag so I can explain to her which ones may be a problem and/or determine if there any other contributing factors. [facility] Medical History Irritable bowel syndrome with diarrhea Constipation Pre-op evaluation Back pain Physical exam Transaminitis Urinary incontinence Diabetes mellitus Tingling of both feet Bilateral leg and foot pain Lumbosacral strain Depression Insomnia Snoring Hypersomnia Urge urinary incontinence Anxiety and depression Obesity (BMI 30-39.9) Type 2 diabetes mellitus with hyperglycemia Fibromyalgia History of herniated intervertebral disc History of TIA (transient ischemic attack) Osteopenia Allergic rhinitis Migraine aura without headache Osteoarthritis Asthma Type 2 diabetes mellitus with diabetic polyneuropathy Hyperlipidemia LDL goal <70 Vitamin D insufficiency Hypertension Surgical History History of carpal tunnel surgery History of cholecystectomy History of cervical biopsy H/O colonoscopy History of bilateral tubal ligation History of partial hysterectomy History of bladder suspension procedure History of appendectomy Family History Father Kidney failure Diabetes CVD (cardiovascular disease) Hypertension Mother Diabetes Hypertension Social History Housing: House Unable to assess alcohol history related to: Unknown Alcohol intake: never Patient Tobacco Use Status: Never used Tobacco e-Cigarette/Vaping Use: Never Used Second Hand Smoke Exposure: No service: No Current occupational status: retired Cognitive needs: No Hearing needs: No Vision needs: No Review of Systems Const Denies fatigue, Denies fever(s), Denies night sweats, Denies poor appetite and Denies weight loss ENT Reports Normal hearing present, Denies dental pain, Denies dysphagia, Denies hearing loss, Denies mouth pain, Denies odynophagia, Denies throat swelling, Denies tongue swelling and Reports other (Dentition adequate) Card Reports no additional complaints Resp Reports no additional complaints GI Details: Reports abdominal pain, Denies melena, Denies bloating, Denies hematochezia, Reports constipation, Denies GI cramping, Denies dysphagia, Denies excessive flatus, Denies early satiety, Reports heartburn, Denies diarrhea, Reports nausea, Denies odynophagia, Denies vomiting and Denies hematemesis Reports flank pain Musc Reports back pain and Reports radiating pain into limb Skin/Breast Denies pruritus, Denies lesions, Denies rash and Denies jaundice Neuro Reports Normal hearing present and Denies Abnormal speech present Endo Denies fatigue Aller/Immun Denies throat swelling and Denies tongue swelling Physical Exam Vital Signs: Last Vital Signs Pulse 73 12/31/24 13:31 BP 140/60 H 12/31/24 13:31 BMI result Body Mass Index 27.7 Const General: cooperative, no acute distress, well developed and well groomed Nutritional Appearance: average body habitus and well nourished Orientation/consciousness: oriented to person, oriented to place and oriented to time Limitations: language barrier HEENT Head: Yes normocephalic and Yes atraumatic Eyes General: appearance normal, both eyes and all related structures Pupils: Equal, round and reactive pupils present Neck Neck: Yes normal visual inspection and Yes no lymphadenopathy Thyroid: Thyroid normal Resp Effort & Inspection: normal respiratory effort and able to speak in complete sentences Auscultation: clear to auscultation bilaterally Cardio Rate: regular rate Rhythm: regular rhythm Heart sounds: Normal, physiologic split S2 sound present Peripheral pulses: radial pulses present and posterior tibial pulses present GI Inspection: No distended and No Abdominal panniculus present Palpation (GI): Soft to palpation, Tenderness to palpation present (GI) in the RLQ and in the RUQ, no guarding, not rigid and No hepatosplenomegaly present Percussion: Yes normal to percussion Auscultation: normal bowel sounds Rectal Exam - Female: deferred Skin General skin exam: no rashes or lesions noted, turgor normal, skin not dry, no jaundice, No spider nevi and no striae Rashes: no rashes Nails: normal Neuro General: oriented to person, oriented to place and oriented to time Cranial nerves: Yes Equal, round and reactive pupils present and Yes Normal hearing present Speech: No Abnormal speech present Extrem General: Yes normal to inspection, No clubbing, No cyanosis and No edema Psych Appearance: grossly normal and well kempt Mental Status: other Speech and movement: Normal speech and movement present Affect: normal affect Attitude: cooperative Thought process: not confabulating and Impoverished thought process present Thought content: Normal thought content present Insight: Limited insight present (Psych) Judgement: Limited judgement present (Psych) Assessment & Plan Assessment & Plan (1) Elevated lipase: Code(s): R74.8 - Abnormal levels of other serum enzymes Category: Medical (2) Upper abdominal pain: Code(s): R10.10 - Upper abdominal pain, unspecified Category: Medical (3) Gastroparesis: Code(s): K31.84 - Gastroparesis Category: Medical (4) GERD (gastroesophageal reflux disease): Code(s): K21.9 - Gastro-esophageal reflux disease without esophagitis Category: Medical Qualifiers: Esophagitis presence: without esophagitis Qualified Code(s): K21.9 - Gastro-esophageal reflux disease without esophagitis (5) GO (nonalcoholic steatohepatitis): Comment: [facility] Laboratory Tests 08/06/23 Hgb A1c (Clinic) 8.9 H YENI Screen NEGATIVE Anti-Mitochondrial Ab NEGATIVE Anti-Smooth Muscle Ab <20 Hepatitis A IgM Ab Nonreactive Hep Bs Antigen Negative Hep Bs Antibody NONREACTIVE Hep B Core Total Ab Nonreactive Hepatitis C Ab (EIA) Nonreactive HIV 1&2 Ab/P24 Ag 4thGn Nonreactive Estimated GFR > 60 Total Bilirubin 0.6 AST 26 ALT 24 Alkaline Phosphatase 65 ULTRASOUND OF THE ABDOMEN WITH ELASTOGRAPHY 04/17/23 (F-1, F-2) CURRENT LABS Laboratory Tests 04/12/2309/ [id number] Estimated GFR Hgb A1c (Clinic) 8.9 H YENI Screen NEGATIVE Anti-Mitochondrial Ab NEGATIVE Anti-Smooth Muscle Ab <20 Hepatitis A IgM Ab Nonreactive Hep Bs Antigen Negative Hep Bs Antibody NONREACTIVE Hep B Core Total Ab Nonreactive Hepatitis C Ab (EIA) Nonreactive HIV 1&2 Ab/P24 Ag 4thGn Nonreactive 08/21/23 10:16 Estimated GFR > 60 Hgb A1c (Clinic) Total Bilirubin 0.6 AST 26 ALT 24 Alkaline Phosphatase 65 YENI Screen Anti-Mitochondrial Ab Anti-Smooth Muscle Ab Hepatitis A IgM Ab Hep Bs Antigen Hep Bs Antibody Hep B Core Total Ab Hepatitis C Ab (EIA) HIV 1&2 Ab/P24 Ag 4thGn ULTRASOUND OF THE ABDOMEN WITH ELASTOGRAPHY 04/17/23 (F-1, F-2) FINDINGS: PANCREAS: Normal. The visualized pancreatic head and body are normal in appearance. The remainder of the pancreas is obscured from visualization by the overlying bowel gas. ABDOMINAL AORTA: The proximal, middle, and distal aortic segments are normal in caliber. INFERIOR VENA CAVA: Visualized portions are normal. LIVER: Normal. The liver demonstrates normal size, contour and normal echogenicity. No focal lesion or intrahepatic biliary duct dilatation. The right lobe measures 13.3 cm in length. The left lobe measures 9.2 cm in length. Portal flow is towards the liver (hepatopetal). Shear wave liver elastography median stiffness is 1.86 m/s (reference: normal median stiffness is 1.3 m/s or less). IQR/median stiffness to assess sampling precision is 0.12 (reference: good quality data set is IQR/median stiffness of 0.15 or less). GALLBLADDER: Surgically absent. COMMON BILE DUCT: Normal in caliber measuring 0.3 cm in diameter. RIGHT KIDNEY: Normal. No hydronephrosis. No renal calculi or focal parenchymal lesions. The kidney measures 12.2 cm in maximum dimension. LEFT KIDNEY: Normal. No hydronephrosis. No renal calculi or focal parenchymal lesions. The kidney measures 12.7 cm in maximum dimension. SPLEEN: Normal. The spleen measures 9.1 cm in maximum dimension. FREE FLUID: None. US/US abdomen comp w elastography IMPRESSION: 1. The gallbladder is surgically absent. 2. Liver elastography: Measurements are suggestive of compensated advanced chronic liver disease but need further test for confirmation. Code(s): K75.81 - Nonalcoholic steatohepatitis (GO) Category: Medical (6) Irritable bowel syndrome with diarrhea: Comment: diarrhea more dominant, but at times becomes constipated, Pattern varies. Will trial Senna prn constipation and daily fiber supplement. Bentyl on diarrhea/ cramping days. Has an element of post cholecystectomy syndrome Code(s): K58.0 - Irritable bowel syndrome with diarrhea Category: Medical Plan [place] #[id number] She still has abd pain but now she is veyr constipated. NOW THE UPPER ABDOMINAL PAIN has changed it is more just below the ribs and is spreading across the upper abdomen. Before it was more towards the periumbilical area and to the left. This is significant because she presented to the ER with increasing complaints of back pain radiating into the buttocks and at that time they noted she had an elevated lipase. It was quite elevated in the 700s earlier in November and then a repeat a couple weeks later it was down to 168 but still quite elevated. Cat scan of the abdomen pelvis was unremarkable. This is concerning because now I am fearful that this is not just IBS but possibly is pancreatitis most likely from a medication side effect. She is on both Januvia and as a BERTO which both can cause pancreatitis as a side effect. I am going to get an MRCP to take a closer look at this area in the meantime because she is constipated we are going to decrease the Lotronex to once a day dosing. Return office visit in 2 weeks I have asked her to bring all of her medications in a bag so I can explain to her which ones may be a problem and/or determine if there any other contributing factors. Orders: Orders MR MRCP 12/31/24 R10.10 - Upper abdominal pain, unspecified, R74.8 - Abnormal levels of other serum enzymes Medications: Changed From alosetron 0.5 mg PO BID 60 tabs 11RF K58.0 - Irritable bowel syndrome with diarrhea To alosetron (Lotronex) 0.5 mg PO .qd 30 tabs 11RF K58.0 - Irritable bowel syndrome with diarrhea Refilled ubrogepant (Ubrelvy) take at onset of migraine, may repeat in 2hrs 50 - 100 mg (0.5 - 1 x 100 mg) PO ONCE PRN 16 tabs 3RF migraine headache 30 days Patient Instructions: Sparks,Saniya Por favor, reduzca la dosis del medicamento Lotronex (alosetr?n) a tal vez al d?a en lugar de dos veces. Saque la dosis de la noche de decker caja. POR FAVOR TRAIGA TODOS SAADIA MEDICAMENTOS, INCLUYENDO LOS QUE NO LE RECETA, A DECKER MI?XIMA VISITA CONMIGO. Coding Level of Care Code Est Pt Level 4 (06253) Diagnoses Elevated lipase R74.8 Upper abdominal pain R10.10 Gastroparesis K31.84 Gastroesophageal reflux disease without esophagitis K21.9 Esophagitis presence: without esophagitis GO (nonalcoholic steatohepatitis) K75.81 Irritable bowel syndrome with diarrhea K58.0 Time Spent (min) 37
[2024-12-31 13:31] VITALS: BP 140/60; PULSE 73; BMI 27.7
== END 2024-12-31 14:45 | disposition home or self-care (01) ==
LOC: HO.HGI 13:24
PROVIDERS: PCP Internal Medicine; Visit Provider Nurse Practitioner
DX: R74.8 Abnormal levels of other serum enzymes (principal); R10.10 Upper abdominal pain, unspecified; K31.84 Gastroparesis; K21.9 Gastro-esophageal reflux disease without esophagitis; K75.81 Nonalcoholic steatohepatitis (NASH); K58.0 Irritable bowel syndrome with diarrhea
CPT/HCPCS: 99214

== ENCOUNTER → 2024-12-31 13:23 | Outpatient (BNVA) | payer OTHER, SELFPAY | PROVIDERS: PCP Internal Medicine; Visit Provider Nurse Practitioner | DX: K31.84 Gastroparesis (principal); R74.8 Abnormal levels of other serum enzymes; R10.10 Upper abdominal pain, unspecified; K21.9 Gastro-esophageal reflux disease without esophagitis | CPT/HCPCS: 99212 ==

== ENCOUNTER → 2025-01-02 13:45 | Outpatient (BNVA) | payer OTHER, SELFPAY | PROVIDERS: PCP Internal Medicine ==

== ENCOUNTER → 2025-01-23 08:29 | Outpatient (BNV) | payer OTHER, SELFPAY | PROVIDERS: PCP Internal Medicine; Visit Provider Radiology Diagnostic Radiology | DX: N28.1 Cyst of kidney, acquired (principal) | CPT/HCPCS: 74181 ==

== ENCOUNTER 2025-01-23 08:30 | Outpatient (REF) | payer OTHER, SELFPAY ==
--- NOTE | ~2025-01-23 | MR_ITS ---
EXAMINATION: MRCP HISTORY: R10.10 - Upper abdominal pain, unspecified COMPARISON: Correlation is made with an unenhanced CT of the abdomen and pelvis dated 12/10/2024. TECHNIQUE: Axial gradient echo in and out of phase T1, axial T2 and fat suppressed T2, and coronal haste T2 with fat saturation images were obtained through the abdomen. 3D MRCP Reconstructed images and thick slab imaging of the biliary tree were obtained. FINDINGS: There is no significant signal loss within the liver on opposed phase imaging to suggest steatosis. There is no intrahepatic biliary ductal dilatation. The patient is status post cholecystectomy. The common bile duct is normal in caliber. No intraluminal filling defects are identified to suggest choledocholithiasis. The pancreas is unremarkable. The pancreatic duct is normal in caliber. The spleen, adrenals, and right kidney are unremarkable. There is a 0.8 cm probable cyst in the interpolar region of the left kidney. There is no hydronephrosis. No retroperitoneal lymphadenopathy or ascites is identified in the upper abdomen. The visualized bones demonstrate normal marrow signal intensity. MR/MR MRCP IMPRESSION: 0.8 mm left renal cyst. Otherwise unremarkable MRCP. Electronically signed by: Agustin Quick MD 01/23/2025 09:18 AM EDT
== END 2025-01-23 08:31 | disposition home or self-care (01) ==
LOC: HO.MRI 08:30
PROVIDERS: PCP Internal Medicine; Visit Provider Nurse Practitioner
DX: K85.90 Acute pancreatitis without necrosis or infection, unspecified (principal); R74.8 Abnormal levels of other serum enzymes
CPT/HCPCS: 74181

== ENCOUNTER 2025-02-02 14:48 | Outpatient (AMB) | payer OTHER, SELFPAY ==
--- NOTE | 2025-02-02 14:56 | MHC.PC.OV ---
Vital Signs 02/02/25 14:58 Height 5 ft 3.5 in Weight 161 lb BMI 28.1 BP 128/80 Blood Pressure Location Lt brachial Position Sitting Intake Visit Reasons: Request PE - A1C needed. 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: No Accompanied by: Self / Same As Patient Allergies amoxicillin Allergy (Unknown, Verified 02/02/25 15:23) pruritus penicillin G Allergy (Unknown, Verified 02/02/25 15:23) pruritis duloxetine (From Cymbalta) Adverse Reaction (Intermediate, Verified 02/02/25 15:23) palpitations and sob dulaglutide (Trulicity) Adverse Reaction (Unknown, Verified 02/02/25 15:23) abdominal pain Medication List - Last Reconciled 02/02/25 by Jess Garza MD [adult diapers As directed] albuterol sulfate 90 mcg/actuation 2 puffs PO Q4-6H PRN alcohol swabs pad topical TID alosetron (Lotronex) 0.5 mg PO .qd [bed rail As directed] blood pressure monitor As directed blood pressure monitor As directed blood sugar diagnostic (FreeStyle Lite Strips) As directed three times a day blood-glucose meter (FreeStyle Lite Meter kit) three times a day cholecalciferol (vitamin D3) 50 mcg PO DAILY 90 days clonazepam 0.5 mg PO DAILY PRN 30 days cyclobenzaprine 5 mg PO TID PRN dapaglifloz propaned-metformin 2.5-1,000 mg ER (Xigduo XR) 1 tab PO DAILY 90 days ezetimibe 10 mg PO DAILY famotidine 40 mg PO BEDTIME [handheld showerhead As directed] hydroxyzine HCl 10 mg PO BEDTIME PRN 10 days ibuprofen 800 mg PO Q8H PRN 30 days incontinence pad, liner, disp Use 1 pad three times a day lancets (FreeStyle Lancets) As directed three time a day lisinopril-hydrochlorothiazide 20-12.5 mg 1 tab PO DAILY 90 days loratadine 10 mg PO DAILY magnesium 250 mg PO DAILY methocarbamol 750 mg PO BEDTIME metoclopramide HCl 10 mg PO QID 30 days miscellaneous medical supply 1 ea miscellaneous DAILY [non-slip rug for tub As directed] nystatin 6 mL PO QID 21 days pantoprazole 40 mg PO DAILY [personal wipes As directed] [raised toilet seat As directed] rosuvastatin 40 mg PO DAILY Held on 10/29/24. Instructions: Doctor's Order rosuvastatin 20 mg PO DAILY sennosides (Senna Laxative) 17.2 mg (2 x 8.6 mg) PO BEDTIME Held on 10/28/24. Instructions: Doctor's Order sertraline 150 mg (1.5 x 100 mg) PO DAILY Shower Chair As directed simethicone (Gas Relief (simethicone)) 125 mg PO BID-QID sitagliptin phosphate (Januvia) 25 mg PO DAILY 90 days trazodone 100 mg PO BEDTIME 90 days ubrogepant (Ubrelvy) 50 - 100 mg (0.5 - 1 x 100 mg) PO ONCE PRN 30 days underpads (Bed Underpads) As directed walker As directed walker (Ultra-Light Rollator misc) As directed Tobacco use date assessed: 11/28/24 Fall risk assessment: 2 + Falls in past year Last assessed Fall Risk: 02/02/25 Dental Screening Dental Screen Date: 11/28/24 HPI HPI Comments History of Present Illness Details The patient is a 64-year-old female presenting for an annual physical examination and management of chronic conditions. The patient has a history of hemorrhoids, which were noted during a colonoscopy performed last year. The colonoscopy results were otherwise normal, and the next colonoscopy is scheduled for 2033. The patient reports a history of depression for which she is prescribed sertraline. She does not currently see a mental health professional for this condition. The patient has diabetes mellitus with a recent HbA1c of 9.3%, indicating poor glycemic control. She is not currently under the care of an community recreation coordinator, and there is a consideration for referral due to elevated blood glucose levels. Has a tongue lesion since November and will be referred to ENT. She also has a skin infection in left thigh and I will start her on antibiotics. The patient has a history of hypertension, which is managed with lisinopril and hydrochlorothiazide. Her mother also has a history of diabetes and hypertension. The patient has allergies to amoxicillin, penicillin, duloxetine, and Trulicity. The patient has undergone several surgeries, including carpal tunnel release, cholecystectomy, colonoscopy, tubal ligation, and hysterectomy. [facility] Medical History (Updated 02/02/25 @ 16:52 by Jess Garza MD) Physical exam Irritable bowel syndrome with diarrhea Constipation Pre-op evaluation Back pain Transaminitis Urinary incontinence Diabetes mellitus Tingling of both feet Bilateral leg and foot pain Lumbosacral strain Depression Insomnia Snoring Hypersomnia Urge urinary incontinence Anxiety and depression Obesity (BMI 30-39.9) Type 2 diabetes mellitus with hyperglycemia Fibromyalgia History of herniated intervertebral disc History of TIA (transient ischemic attack) Osteopenia Allergic rhinitis Migraine aura without headache Osteoarthritis Asthma Type 2 diabetes mellitus with diabetic polyneuropathy Hyperlipidemia LDL goal <70 Vitamin D insufficiency Hypertension Surgical History History of carpal tunnel surgery History of cholecystectomy History of cervical biopsy H/O colonoscopy History of bilateral tubal ligation History of partial hysterectomy History of bladder suspension procedure History of appendectomy Family History Father Kidney failure Diabetes CVD (cardiovascular disease) Hypertension Mother Diabetes Hypertension Social History Housing: House Unable to assess alcohol history related to: Unknown Alcohol intake: never Patient Tobacco Use Status: Never used Tobacco e-Cigarette/Vaping Use: Never Used Second Hand Smoke Exposure: No service: No Current occupational status: retired Cognitive needs: No Hearing needs: No Vision needs: No Questionnaire Thrive Questionnaire Date Thrive assessed: 11/28/24 I am a: Patient What is your living situation today?: I choose not to answer this question Within the past 12 months, did the food you bought not last and you didn't have the money to get more?: I choose not to answer this question Within the past 12 months, did you worry whether your food would run out before you got money to buy more?: I choose not to answer this question Do you have trouble paying for medicines?: No Do you have trouble getting transportation to medical appointments?: No Do you have trouble paying your heating and electricity bill?: No Do you have trouble taking care of your child, family member or friend?: No Do you have trouble with day-to-day activities such as bathing, preparing meals, shopping, managing finances, etc.?: No Are you currently unemployed and looking for a job?: No Are you interested in more education?: No Please select the resources that you would like help with: None Currently or been in a relationship where the following occur: I choose not to answer THRIVE Score: 0 AMBROCIO-7 AMB Questionnaire AMBROCIO-7 Date AMBROCIO - 7 assessed: 10/29/24 Source: Developed by Drs. Agustin Caraballo, Annabella Dumont, Frank Means and colleagues, with an educational flash from [employer]. Review of Systems Const All systems reviewed & are unremarkable except as noted in HPI and below Card Denies chest pain at rest, Denies chest pain with activity, Denies edema, Denies irregular heart rhythm, Denies claudication, Denies dyspnea, Denies dyspnea on exertion, Denies orthopnea, Denies paroxysmal nocturnal dyspnea and Denies slow heart rate Resp Denies cough, Denies dyspnea and Denies dyspnea on exertion GI Denies abdominal pain, Denies change in bowel habits, Denies excessive flatus, Denies nausea and Denies vomiting Denies urinary incontinence, Denies urinary hesitancy and Denies urinary urgency Musc Denies abnormal gait, Denies atrophy, Denies deformity and Denies limited range of motion Skin/Breast Denies bleeding lesions, Denies changing lesions and Denies rash Neuro Denies abnormal gait and Denies lack of coordination Physical exam (Primary Care) Vital Signs: Last Vital Signs BP 128/80 02/02/25 14:58 BMI result Body Mass Index 28.1 Tobacco/Smoking Status: Tobacco use Status Tobacco use date assessed 11/28/24 02/02/25 15:02 Patient Tobacco Use Status Never used Tobacco 02/02/25 15:02 Tobacco use type 12/31/24 14:48 e-Cigarette/Vaping Use Never Used 02/02/25 15:02 Thrive Assessment: Date of Thrive Assessment Date Thrive assessed 11/28/24 02/02/25 15:02 Currently or been in a relationship where the following occur: I choose not to answer [facility] Head: Yes normal to inspection, Yes normocephalic and Yes atraumatic Ears: external ears normal Eyes General: appearance normal, both eyes and all related structures Eyelids: Yes eyelids normal Conjunctivae: conjunctivae normal Neck Neck: Yes normal visual inspection and Yes supple Resp Effort & Inspection: normal respiratory effort Auscultation: clear to auscultation bilaterally Cardio Jugular venous distension: no JVD Rate: regular rate Rhythm: regular rhythm Heart sounds: S1 normal heart sound present and S2 normal heart sound present GI Inspection: Yes normal to inspection Palpation (GI): Soft to palpation and nontender Auscultation: normal bowel sounds Skin General skin exam: no rashes or lesions noted Neuro General: no focal motor deficits Extrem General: Yes full ROM Psych Appearance: grossly normal Immunizations pneumoc 20-vania conj-dip cr(PF) 0.5 mL IM syringe Performing Provider: Jess Garza MD [place] [facility] [place] [place] [facility] Administered by: Julia Boucher CMA on 02/02/25 15:39 Dose Route Admin Location Dispensed Lot Number Expiration Date [facility] Access Service Representative 0.5 mL IM Left Deltoid 0.5 mL [id number] 01/13/26 5983-5381-54 [employer] Total Dispensed Waste 0.5 mL 0 % VIS Given Date VIS Provided VIS Publication Date 02/02/25 Single Vaccine 24 Eligibility Eligibility Date Funding Source Not [facility] Eligible 02/02/25 Private Coding Level of Care Code Est Pt Level 3 (69006) Est Pt Prev Care >65y(64383) Diagnoses Physical exam Z00.00 Type 2 diabetes mellitus with hyperglycemia, with long-term current use of insulin E11.65; Z79.4 Diabetes mellitus superintendent terminal insulin use: with alf use Mild recurrent major depression F33.0 Tongue lesion K14.8 Cellulitis L03.90 Time Spent (min) 34 Assessment & Plan Assessment & Plan (1) Physical exam: Code(s): Z00.00 - Encounter for general adult medical examination without abnormal findings Category: Medical (2) Type 2 diabetes mellitus with hyperglycemia: Code(s): E11.65 - Type 2 diabetes mellitus with hyperglycemia Category: Medical Qualifiers: Diabetes mellitus superintendent terminal insulin use: with superintendent terminal use Qualified Code(s): E11.65 - Type 2 diabetes mellitus with hyperglycemia; Z79.4 - detention (current) use of insulin (3) Mild recurrent major depression: Code(s): F33.0 - Major depressive disorder, recurrent, mild Category: Medical (4) Tongue lesion: Code(s): K14.8 - Other diseases of tongue Category: Medical (5) Cellulitis: Code(s): L03.90 - Cellulitis, unspecified Category: Medical Plan The patient will receive a pneumonia vaccination today as part of preventative care measures. Blood tests, including cholesterol and tuberculosis screening, have been ordered to assess her current health status. Due to the elevated HbA1c level of 9.3%, a referral to endocrinology is considered to better manage her diabetes mellitus. The patient is advised to continue her current antihypertensive regimen with lisinopril and hydrochlorothiazide. The patient is encouraged to follow up with mental health services for her depression, although she is currently on sertraline. Patient was informed and verbally consented to the use of an ambient scribe for clinic note documentation during this visit. I discussed with the patient the importance of receiving the pneumonia vaccination today and the need for regular blood tests to monitor her health, including cholesterol and tuberculosis screening. We talked about the elevated HbA1c level and the potential benefits of seeing an community recreation coordinator to manage her diabetes more effectively. I also advised her to maintain her current antihypertensive treatment and encouraged her to seek mental health support for her depression. Orders: Orders XR DEXA axial skeleton Today Z78.0 - Asymptomatic menopausal state Lipid Panel Today E78.5 - Hyperlipidemia, unspecified Microalbumin, Random (w Creat) Today R80.9 - Proteinuria, unspecified Comprehensive [place]. Panel Fast Today E11.65 - Type 2 diabetes mellitus with hyperglycemia, Z79.4 - detention (current) use of insulin Vitamin D 25-OH Total Today E55.9 - Vitamin D deficiency, unspecified Vitamin B12 and Folate Today E53.8 - Deficiency of other specified B group vitamins Pneumococcal 20 Immunization Today Z23 - Encounter for immunization Referrals Endocrinology Referral E11.65 - Type 2 diabetes mellitus with hyperglycemia, Z79.4 - detention (current) use of insulin Ear/Nose/Throat Referral K14.8 - Other diseases of tongue Medications: New semaglutide (Ozempic) for 4 weeks 0.25 mg (0.368 mL) subcut QWEEK 1.472 mL 1RF 4 weeks E11.65 - Type 2 diabetes mellitus with hyperglycemia, Z79.4 - detention (current) use of insulin sulfamethoxazole-trimethoprim 800-160 mg (Bactrim DS) 1 tab PO BID 14 tabs 0RF 7 days
[2025-02-02 14:58] VITALS: BP 128/80; BMI 28.1
== END 2025-02-02 15:48 | disposition home or self-care (01) ==
PROVIDERS: PCP Internal Medicine; Visit Provider Internal Medicine
DX: Z00.00 Encounter for general adult medical examination without abnormal findings (principal); E11.65 Type 2 diabetes mellitus with hyperglycemia; Z79.4 Long term (current) use of insulin; F33.0 Major depressive disorder, recurrent, mild; K14.8 Other diseases of tongue; L03.90 Cellulitis, unspecified; Z23 Encounter for immunization

== ENCOUNTER → 2025-02-02 14:48 | Outpatient (BNVA) | payer OTHER, SELFPAY | PROVIDERS: PCP Internal Medicine; Visit Provider Internal Medicine | DX: Z00.00 Encounter for general adult medical examination without abnormal findings (principal); E11.65 Type 2 diabetes mellitus with hyperglycemia; K64.9 Unspecified hemorrhoids; I10 Essential (primary) hypertension; F33.0 Major depressive disorder, recurrent, mild; K14.8 Other diseases of tongue; Z23 Encounter for immunization; Z79.4 Long term (current) use of insulin; Z79.899 Other long term (current) drug therapy | CPT/HCPCS: 90471; 90677; 99212; 99397 ==

== ENCOUNTER 2025-02-13 13:04 | Outpatient (REF) | payer OTHER, SELFPAY ==
[2025-02-13 15:42] LABS: Amylase 274 U/L (28-100); Lipase 499 U/L (8-78)
== END 2025-02-13 13:05 | disposition home or self-care (01) ==
LOC: HO.LAB 13:04
PROVIDERS: PCP Internal Medicine; Visit Provider Nurse Practitioner
DX: K58.0 Irritable bowel syndrome with diarrhea (principal); R74.8 Abnormal levels of other serum enzymes; R10.10 Upper abdominal pain, unspecified
CPT/HCPCS: 36415; 82150; 83690; 84443; 99212

== ENCOUNTER 2025-02-13 13:04 | Outpatient (AMB) | payer OTHER, SELFPAY ==
[2025-02-13 13:06] VITALS: BP 141/60; PULSE 77; BMI 28.2
--- NOTE | 2025-02-13 13:06 | MHC.OFFVIS ---
Vital Signs 02/13/25 13:06 Height 5 ft 3.5 in Weight 161 lb 13.109 oz BMI 28.2 BP 141/60 H Blood Pressure Location Lt brachial Position Sitting Pulse 77 Intake Visit Reasons: Elevated Lipsae, Upper abd. pain,IBS Intake Note: Saniya presents in follow up of elevated lipase, upper abdominal pain, and IBS. CC: Patient c/o constipation, blood in stool, mild nausea, GERD, and last night she had abdominal pain. Patient states that she suffered a fall at home last week and has bruising from her rt eye and eybrow. Manager Games Required: Yes Manager Games Language: French Accompanied by: Self / Same As Patient Allergies amoxicillin Allergy (Unknown, Verified 02/13/25 13:12) pruritus penicillin G Allergy (Unknown, Verified 02/13/25 13:12) pruritis duloxetine (From Cymbalta) Adverse Reaction (Intermediate, Verified 02/13/25 13:12) palpitations and sob dulaglutide (Trulicity) Adverse Reaction (Unknown, Verified 02/13/25 13:12) abdominal pain HPI HPI Elevated Lipsae, Upper abd. pain,IBS: Details: Assessment & Plan (1) Elevated lipase: Code(s): R74.8 - Abnormal levels of other serum enzymes Category: Medical (2) Upper abdominal pain: Code(s): R10.10 - Upper abdominal pain, unspecified Category: Medical (3) Gastroparesis: Code(s): K31.84 - Gastroparesis Category: Medical (4) GERD (gastroesophageal reflux disease): Code(s): K21.9 - Gastro-esophageal reflux disease without esophagitis Category: Medical Qualifiers: Esophagitis presence: without esophagitis Qualified Code(s): K21.9 - Gastro-esophageal reflux disease without esophagitis (5) GO (nonalcoholic steatohepatitis): Comment: [facility] Laboratory Tests 08/06/23 Hgb A1c (Clinic) 8.9 H YENI Screen NEGATIVE Anti-Mitochondrial Ab NEGATIVE Anti-Smooth Muscle Ab <20 Hepatitis A IgM Ab Nonreactive Hep Bs Antigen Negative Hep Bs Antibody NONREACTIVE Hep B Core Total Ab Nonreactive Hepatitis C Ab (EIA) Nonreactive HIV 1&2 Ab/P24 Ag 4thGn Nonreactive Estimated GFR > 60 Total Bilirubin 0.6 AST 26 ALT 24 Alkaline Phosphatase 65 ULTRASOUND OF THE ABDOMEN WITH ELASTOGRAPHY 10/03/23 (F-1, F-2) CURRENT LABS Laboratory Tests 04/12/2309/ [id number] Estimated GFR Hgb A1c (Clinic) 8.9 H YENI Screen NEGATIVE Anti-Mitochondrial Ab NEGATIVE Anti-Smooth Muscle Ab <20 Hepatitis A IgM Ab Nonreactive Hep Bs Antigen Negative Hep Bs Antibody NONREACTIVE Hep B Core Total Ab Nonreactive Hepatitis C Ab (EIA) Nonreactive HIV 1&2 Ab/P24 Ag 4thGn Nonreactive 08/21/23 10:16 Estimated GFR > 60 Hgb A1c (Clinic) Total Bilirubin 0.6 AST 26 ALT 24 Alkaline Phosphatase 65 YENI Screen Anti-Mitochondrial Ab Anti-Smooth Muscle Ab Hepatitis A IgM Ab Hep Bs Antigen Hep Bs Antibody Hep B Core Total Ab Hepatitis C Ab (EIA) HIV 1&2 Ab/P24 Ag 4thGn ULTRASOUND OF THE ABDOMEN WITH ELASTOGRAPHY 04/17/23 (F-1, F-2) FINDINGS: PANCREAS: Normal. The visualized pancreatic head and body are normal in appearance. The remainder of the pancreas is obscured from visualization by the overlying bowel gas. ABDOMINAL AORTA: The proximal, middle, and distal aortic segments are normal in caliber. INFERIOR VENA CAVA: Visualized portions are normal. LIVER: Normal. The liver demonstrates normal size, contour and normal echogenicity. No focal lesion or intrahepatic biliary duct dilatation. The right lobe measures 13.3 cm in length. The left lobe measures 9.2 cm in length. Portal flow is towards the liver (hepatopetal). Shear wave liver elastography median stiffness is 1.86 m/s (reference: normal median stiffness is 1.3 m/s or less). IQR/median stiffness to assess sampling precision is 0.12 (reference: good quality data set is IQR/median stiffness of 0.15 or less). GALLBLADDER: Surgically absent. COMMON BILE DUCT: Normal in caliber measuring 0.3 cm in diameter. RIGHT KIDNEY: Normal. No hydronephrosis. No renal calculi or focal parenchymal lesions. The kidney measures 12.2 cm in maximum dimension. LEFT KIDNEY: Normal. No hydronephrosis. No renal calculi or focal parenchymal lesions. The kidney measures 12.7 cm in maximum dimension. SPLEEN: Normal. The spleen measures 9.1 cm in maximum dimension. FREE FLUID: None. US/US abdomen comp w elastography IMPRESSION: 1. The gallbladder is surgically absent. 2. Liver elastography: Measurements are suggestive of compensated advanced chronic liver disease but need further test for confirmation. Code(s): K75.81 - Nonalcoholic steatohepatitis (GO) Category: Medical (6) Irritable bowel syndrome with diarrhea: Comment: diarrhea more dominant, but at times becomes constipated, Pattern varies. Will trial Senna prn constipation and daily fiber supplement. Harper on diarrhea/ cramping days. Has an element of post cholecystectomy syndrome Code(s): K58.0 - Irritable bowel syndrome with diarrhea Category: Medical Plan French #[id number] She still has abd pain but now she is veyr constipated. NOW THE UPPER ABDOMINAL PAIN has changed it is more just below the ribs and is spreading across the upper abdomen. Before it was more towards the periumbilical area and to the left. This is significant because she presented to the ER with increasing complaints of back pain radiating into the buttocks and at that time they noted she had an elevated lipase. It was quite elevated in the 700s earlier in November and then a repeat a couple weeks later it was down to 168 but still quite elevated. Cat scan of the abdomen pelvis was unremarkable. This is concerning because now I am fearful that this is not just IBS but possibly is pancreatitis most likely from a medication side effect. She is on both Januvia and as a BERTO which both can cause pancreatitis as a side effect. I am going to get an MRCP to take a closer look at this area in the meantime because she is constipated we are going to decrease the Lotronex to once a day dosing. Return office visit in 2 weeks I have asked her to bring all of her medications in a bag so I can explain to her which ones may be a problem and/or determine if there any other contributing factors. Orders: Orders MR MRCP 12/31/24 R10.10 - Upper abdominal pain, unspecified, R74.8 - Abnormal levels of other serum enzymes Medications: Changed From alosetron 0.5 mg PO BID 60 tabs 11RF K58.0 - Irritable bowel syndrome with diarrhea To alosetron (Lotronex) 0.5 mg PO .qd 30 tabs 11RF K58.0 - Irritable bowel syndrome with diarrhea Refilled ubrogepant (Ubrelvy) take at onset of migraine, may repeat in 2hrs 50 - 100 mg (0.5 - 1 x 100 mg) PO ONCE PRN 16 tabs 3RF migraine headache 30 days Patient Instructions: Saniya Sparks Por favor, reduzca la dosis del medicamento Lotronex (alosetr?n) a tal vez al d?a en lugar de dos veces. Saque la dosis de la noche de decker caja. POR FAVOR TRAIGA TODOS SAADIA MEDICAMENTOS, INCLUYENDO LOS QUE NO LE RECETA, A DECKER NV?XIMA VISITA CONMIGO. MRI ABD 01/23/2025 FINDINGS: There is no significant signal loss within the liver on opposed phase imaging to suggest steatosis. There is no intrahepatic biliary ductal dilatation. The patient is status post cholecystectomy. The common bile duct is normal in caliber. No intraluminal filling defects are identified to suggest choledocholithiasis. The pancreas is unremarkable. The pancreatic duct is normal in caliber. The spleen, adrenals, and right kidney are unremarkable. There is a 0.8 cm probable cyst in the interpolar region of the left kidney. There is no hydronephrosis. No retroperitoneal lymphadenopathy or ascites is identified in the upper abdomen. The visualized bones demonstrate normal marrow signal intensity. MR/MR MRCP IMPRESSION: 0.8 mm left renal cyst. Otherwise unremarkable MRCP. Electronically signed by: Agustin Quick MD 01/23/2025 09:18 AM EDT thank you take c Laboratory Tests 12/10/24 12/29/24 08:55 09:49 Lipase 782 H 168 H TODAYS VISIT French #V LIve She has had no change in sx since adjusting her Lotronex down from bid to qd. She still is having CIC. I want her to stop the medicine and get her bowels moving to see if this effects the pain. She is agreeable. Maybe qod depending. (pain:just below the ribs and is spreading across the upper abdomen. Before it was more towards the periumbilical area and to the left. ) MRI did not show any pancreatic problems, but she has had triple digit elevated lipases since starting Ozempic about the beginning of this years for her diabetes. This was rx'ed by her PCP, but she will be seeing her security systems installer soon. The Ozempic could be the cause of the pain and of the CIC. ROV 3 weeks. [facility] Medical History Physical exam Irritable bowel syndrome with diarrhea Constipation Pre-op evaluation Back pain Transaminitis Urinary incontinence Diabetes mellitus Tingling of both feet Bilateral leg and foot pain Lumbosacral strain Depression Insomnia Snoring Hypersomnia Urge urinary incontinence Anxiety and depression Obesity (BMI 30-39.9) Type 2 diabetes mellitus with hyperglycemia Fibromyalgia History of herniated intervertebral disc History of TIA (transient ischemic attack) Osteopenia Allergic rhinitis Migraine aura without headache Osteoarthritis Asthma Type 2 diabetes mellitus with diabetic polyneuropathy Hyperlipidemia LDL goal <70 Vitamin D insufficiency Hypertension Surgical History History of carpal tunnel surgery History of cholecystectomy History of cervical biopsy H/O colonoscopy History of bilateral tubal ligation History of partial hysterectomy History of bladder suspension procedure History of appendectomy Family History Father Kidney failure Diabetes CVD (cardiovascular disease) Hypertension Mother Diabetes Hypertension Social History Housing: House Unable to assess alcohol history related to: Unknown Alcohol intake: never Patient Tobacco Use Status: Never used Tobacco e-Cigarette/Vaping Use: Never Used Second Hand Smoke Exposure: No service: No Current occupational status: retired Cognitive needs: No Hearing needs: No Vision needs: No Review of Systems Const Denies fatigue, Denies fever(s), Denies night sweats, Denies poor appetite and Denies weight loss ENT Reports Normal hearing present, Denies dental pain, Denies dysphagia, Denies hearing loss, Denies mouth pain, Denies odynophagia, Denies throat swelling, Denies tongue swelling and Reports other (Dentition adequate) Card Reports no additional complaints Resp Reports no additional complaints GI Details: Reports abdominal pain, Denies melena, Denies bloating, Denies hematochezia, Reports constipation, Denies GI cramping, Denies dysphagia, Denies excessive flatus, Denies early satiety, Reports heartburn, Denies diarrhea, Denies nausea, Denies odynophagia, Denies vomiting and Denies hematemesis Skin/Breast Denies pruritus, Denies lesions, Denies rash and Denies jaundice Neuro Reports Normal hearing present and Denies Abnormal speech present Endo Denies fatigue Aller/Immun Denies throat swelling and Denies tongue swelling Physical Exam Vital Signs: Last Vital Signs Pulse 77 02/13/25 13:06 BP 141/60 H 02/13/25 13:06 BMI result Body Mass Index 28.2 Const General: cooperative, no acute distress, well developed and well groomed Nutritional Appearance: well nourished Orientation/consciousness: oriented to person, oriented to place and oriented to time Limitations: language barrier HEENT Head: Yes normocephalic and Yes atraumatic Eyes General: appearance normal, both eyes and all related structures Pupils: Equal, round and reactive pupils present Neck Neck: Yes normal visual inspection and Yes no lymphadenopathy Thyroid: Thyroid normal Resp Effort & Inspection: normal respiratory effort and able to speak in complete sentences Auscultation: clear to auscultation bilaterally Cardio Rate: regular rate Rhythm: regular rhythm Heart sounds: Normal, physiologic split S2 sound present Peripheral pulses: radial pulses present and posterior tibial pulses present GI Inspection: No distended, No Abdominal panniculus present and Yes obesity Palpation (GI): Soft to palpation, Tenderness to palpation present (GI) in the epigastrum and in the LUQ, no guarding, not rigid and No hepatosplenomegaly present Percussion: Yes normal to percussion Auscultation: normal bowel sounds Rectal Exam - Female: deferred Skin General skin exam: no rashes or lesions noted, turgor normal, skin not dry, no jaundice, No spider nevi and no striae Rashes: no rashes Nails: normal Neuro General: oriented to person, oriented to place and oriented to time Cranial nerves: Yes Equal, round and reactive pupils present and Yes Normal hearing present Speech: No Abnormal speech present Extrem General: Yes normal to inspection, No clubbing, No cyanosis and No edema Psych Appearance: grossly normal and well kempt Mental Status: mental status grossly normal Speech and movement: Normal speech and movement present Affect: normal affect Attitude: cooperative Thought process: Normal thought process present and not confabulating Thought content: Normal thought content present Insight: Limited insight present (Psych) Judgement: Limited judgement present (Psych) Assessment & Plan Assessment & Plan (1) Irritable bowel syndrome with diarrhea: Comment: diarrhea more dominant, but at times becomes constipated, Pattern varies. Will trial Senna prn constipation and daily fiber supplement. Bentyl on diarrhea/ cramping days. Has an element of post cholecystectomy syndrome Code(s): K58.0 - Irritable bowel syndrome with diarrhea Category: Medical (2) Upper abdominal pain: Code(s): R10.10 - Upper abdominal pain, unspecified Category: Medical (3) Elevated lipase: Code(s): R74.8 - Abnormal levels of other serum enzymes Category: Medical Plan French #V LIve She has had no change in sx since adjusting her Lotronex down from bid to qd. She still is having CIC. I want her to stop the medicine and get her bowels moving to see if this effects the pain. She is agreeable. Maybe qod depending. (pain:just below the ribs and is spreading across the upper abdomen. Before it was more towards the periumbilical area and to the left. ) MRI did not show any pancreatic problems, but she has had triple digit elevated lipases since starting Ozempic about the beginning of this years for her diabetes. This was rx'ed by her PCP, but she will be seeing her security systems installer soon. The Ozempic could be the cause of the pain and of the CIC. Signs and symptoms of severe pancreatitis that would necessitate presentation to the ER also review since this can be precipitated by Ozempic use. I encouraged her to discuss this with endocrine and her primary care provider given her triple digit pancreatic enzymes. ROV 3 weeks. Orders: Orders Lipase 02/13/25 R74.8 - Abnormal levels of other serum enzymes, R10.10 - Upper abdominal pain, unspecified, K58.0 - Irritable bowel syndrome with diarrhea TSH reflex Free T4 08/01/25 R74.8 - Abnormal levels of other serum enzymes, R10.10 - Upper abdominal pain, unspecified, K58.0 - Irritable bowel syndrome with diarrhea Amylase 02/13/25 R74.8 - Abnormal levels of other serum enzymes, R10.10 - Upper abdominal pain, unspecified, K58.0 - Irritable bowel syndrome with diarrhea Medications: Discontinued semaglutide for 4 weeks Discontinued Reason: Patient Completed Course 0.25 mg (0.368 mL) subcut QWEEK 4 weeks 1.472 mL 1RF E11.65 - Type 2 diabetes mellitus with hyperglycemia, Z79.4 - gastroenterology nurse practitioner (current) use of insulin Coding Level of Care Code Est Pt Level 3 (91875) Diagnoses Irritable bowel syndrome with diarrhea K58.0 Upper abdominal pain R10.10 Elevated lipase R74.8
== END 2025-02-13 13:55 | disposition home or self-care (01) ==
LOC: HO.HGI 13:05
PROVIDERS: PCP Internal Medicine; Visit Provider Nurse Practitioner
DX: K58.0 Irritable bowel syndrome with diarrhea (principal); R10.10 Upper abdominal pain, unspecified; R74.8 Abnormal levels of other serum enzymes
CPT/HCPCS: 99213

== ENCOUNTER 2025-03-30 08:11 | Emergency (ER) | payer OTHER, SELFPAY ==
[2025-03-30 08:29] VITALS: BP 120/78; PULSE 66; RESP 16; TEMP 36.4; O2SAT 96; BMI 29.5
--- NOTE | 2025-03-30 08:41 | MHC.EDTECH ---
Patient brought into triage area, labs drawn and sent to lab.
[2025-03-30 08:45] LABS: MANUAL DIFF FLAG NO
[2025-03-30 08:47] LABS: Hematocrit 37.5 % (37.0-47.0); Hemoglobin 12.2 g/dl (12.0-16.0); Imm Gran Abs Auto 0.02 X10*3/uL (0.00-0.03); Imm Gran Pct Auto 0.3 % (0.0-0.4); Lymphocytes Absolute Auto 1.0 X10*3/uL (1.2-4.9); Mean Corpuscular HGB Conc 32.5 g/dl (31.0-35.0); Mean Corpuscular Hemoglobin 28.9 pg (27.0-33.0); Mean Corpuscular Volume 88.9 fL (80.0-98.0); NRBC Abs Auto 0.000 X10*3/uL (0.0-0.012); NRBC Pct Auto 0.0 /100WBC (0.0-0.2); Platelet Count 170 X10*3/uL (160-400); Red Blood Count 4.22 X10*6/uL (4.20-5.50); White Blood Count 6.5 X10*3/uL (4.8-10.8)
[2025-03-30 09:06] LABS: Albumin Level 4.3 g/dL (3.5-5.0); Alkaline Phosphatase 80 U/L (39-117); Anion Gap 13 (12-20); Aspartate Amino Transferase 35 U/L (5-31); Blood Urea Nitrogen 9 mg/dL (9-16); Calcium 9.1 mg/dL (8.4-10.2); Carbon Dioxide 27 mmol/L (22-29); Chloride 106 mmol/L (96-108); Creatinine Clr Calc Pharmacy 86.4; Estimated Glomerular Filt Rate > 60; Potassium 3.6 mmol/L (3.3-5.1); Sodium 142 mmol/L (135-145); Total Protein 7.7 g/dL (6.5-8.0)
[2025-03-30 09:17] LABS: Alanine Aminotransferase 34 U/L (0-31)
--- NOTE | 2025-03-30 11:04 | ED.SKABFB ---
HPI - Skin/Abscess/Foreign Bdy General Chief complaint: Skin/Abscess/Foreign Body Stated complaint: Leg abscess Time Seen by Provider: 03/30/25 10:47 Source: patient and knifeman Mode of arrival: ambulatory Limitations: no limitations History of Present Illness ED Provider: HPI narrative: 64-year-old woman presenting with abscess over her left lateral thigh finished a course of antibiotics states started as a small pimple that started getting bigger finished a course of oral antibiotics and has not resolved and now has been more swollen in the past 2 days, information was obtained with the help of the privacy manager Related Data Home Medications ?Medication ?Instructions ?Recorded ?Confirmed loratadine 10 mg tablet 10 mg PO DAILY 04/14/20 02/02/25 sitagliptin phosphate 25 mg tablet 25 mg PO DAILY 02/13/25 (Kenzie) Previous Rx's ?Medication ?Instructions ?Recorded lancets 28 gauge (FreeStyle #300 ea 12/02/20 Lancets) blood-glucose meter (FreeStyle #1 ea 05/24/21 Lite Meter kit) Shower Chair #1 ea 10/26/22 adult diapers #120 ea 10/26/22 raised toilet seat #1 ea 10/26/22 walker #1 ea 10/26/22 walker (Ultra-Light Rollator misc) #1 ea 11/09/22 blood sugar diagnostic (FreeStyle #300 ea 05/06/23 Lite Strips) blood pressure monitor #1 ea 11/08/23 incontinence pad, liner, disp #90 ea 11/08/23 non-slip rug for tub #1 ea 11/08/23 personal wipes #300 ea 11/08/23 underpads (Bed Underpads) #100 ea 11/08/23 sennosides 8.6 mg tablet (Senna 17.2 mg (2 x 8.6 mg) PO BEDTIME 01/29/24 Laxative) #60 tabs Held on 10/28/24. Instructions: Doctor's Order albuterol sulfate 90 mcg/actuation 2 puff PO Q4-6H PRN shortness of 05/28/24 aerosol inhaler breath or wheezing #8.5 ea cholecalciferol (vitamin D3) 50 50 mcg PO DAILY 90 days #90 caps 06/04/24 mcg (2,000 unit) capsule ibuprofen 800 mg tablet 800 mg PO Q8H PRN pain 30 days #90 06/23/24 tabs ezetimibe 10 mg tablet 10 mg PO DAILY #90 tabs 06/29/24 rosuvastatin 40 mg tablet 40 mg PO DAILY #90 tabs 06/29/24 Held on 10/29/24. Instructions: Doctor's Order famotidine 40 mg tablet 40 mg PO BEDTIME #90 tabs 10/28/24 metoclopramide HCl 10 mg tablet 10 mg PO QID 30 days #120 tabs 10/28/24 pantoprazole 40 mg tablet,delayed 40 mg PO DAILY #90 tabs 10/28/24 release simethicone 125 mg chewable tablet 125 mg PO BID-QID abdominal 10/28/24 (Gas Relief (simethicone)) distention #120 tabs trazodone 100 mg tablet 100 mg PO BEDTIME 90 days #90 tabs 12/12/24 nystatin 100,000 unit/mL oral 6 ml PO QID 21 days #550 mL 12/17/24 suspension alosetron 0.5 mg tablet (Lotronex) 0.5 mg PO .qd #30 tabs 12/31/24 ubrogepant 100 mg tablet (Ubrelvy) 50 - 100 mg (0.5 - 1 x 100 mg) PO 12/31/24 ONCE PRN migraine headache 30 days #16 tabs bed rail #1 ea 01/23/25 blood pressure monitor #1 ea 01/23/25 handheld showerhead #1 ea 01/23/25 sertraline 100 mg tablet 150 mg (1.5 x 100 mg) PO DAILY 02/12/25 #135 tabs dapagliflozin propan 2.5 1 tab PO DAILY 90 days #90 ea 02/18/25 mg-metformin ER 1,000 mg tablet,ext rel 24hr (Xigduo XR) lisinopril 20 1 tab PO DAILY 90 days #90 tabs 03/18/25 mg-hydrochlorothiazide 12.5 mg tablet clonazepam 0.5 mg tablet 0.5 mg PO DAILY PRN anxiety 30 03/24/25 days #30 tabs Allergies Allergy/AdvReac Type Severity Reaction Status Date / Time amoxicillin Allergy Unknown pruritus Verified 03/30/25 08:31 penicillin G Allergy Unknown pruritis Verified 03/30/25 08:31 duloxetine (From Cymbalta) AdvReac Intermediate palpitations Verified 03/30/25 08:31 and sob dulaglutide (Trulicity) AdvReac Unknown abdominal Verified 03/30/25 08:31 pain Review of Systems Constitutional: Constitutional: Reports as per [facility] Past Medical History Medical History Physical exam Irritable bowel syndrome with diarrhea Constipation Pre-op evaluation Back pain Transaminitis Urinary incontinence Diabetes mellitus Tingling of both feet Bilateral leg and foot pain Lumbosacral strain Depression Insomnia Snoring Hypersomnia Urge urinary incontinence Anxiety and depression Obesity (BMI 30-39.9) Type 2 diabetes mellitus with hyperglycemia Fibromyalgia History of herniated intervertebral disc History of TIA (transient ischemic attack) Osteopenia Allergic rhinitis Migraine aura without headache Osteoarthritis Asthma Type 2 diabetes mellitus with diabetic polyneuropathy Hyperlipidemia LDL goal <70 Vitamin D insufficiency Hypertension Surgical History History of carpal tunnel surgery History of cholecystectomy History of cervical biopsy H/O colonoscopy History of bilateral tubal ligation History of partial hysterectomy History of bladder suspension procedure History of appendectomy Family History Family History Father Kidney failure Diabetes CVD (cardiovascular disease) Hypertension Mother Diabetes Hypertension Social History Social History Housing: House Unable to assess alcohol history related to: Unknown Alcohol intake: never Patient Tobacco Use Status: Never used Tobacco e-Cigarette/Vaping Use: Never Used Second Hand Smoke Exposure: No Advance Directives: No Advance Directives Information Provided: Yes service: No Current occupational status: retired Cognitive needs: No Hearing needs: No Vision needs: No Physical Exam Vital Signs: Vital Signs: Last Vital Signs Temp 97.6 F 03/30/25 08:29 Pulse 66 03/30/25 08:29 Resp 16 03/30/25 08:29 BP 120/78 03/30/25 08:29 Pulse Ox 96 03/30/25 08:29 O2 Del Method Room Air 03/30/25 08:29 BMI result Body Mass Index 29.5 Const: Other: Gen: ?Overall well-appearing patient MSK: FROM, strength 5/5 all extremities Skin: Fluctuance over the left lateral thigh without surrounding erythema Neuro: ?Alert and oriented x3, moving upper and lower extremities symmetrically, no obvious facial asymmetry noted Medications Administered Discontinued Medications Generic Name Dose Route Start Last Admin Trade Name Freq PRN Reason Stop Dose Admin Lidocaine HCl 10 ml 03/30/25 11:08 03/30/25 11:16 Lidocaine Hcl 1 % 20 Ml Vial INFILTRATI 03/30/25 11:09 10 ml ONCE ONE Administration Medical Decision Making Medical Decision Making [facility] Narrative: 11:15 AM 03/30/2025 (Dr. Aric Ventura): Verbal consent for incision and drainage was obtained, patient has either an abscess or seroma, plan to drain, washout, she finished a course of antibiotics, there was no evidence for cellulitis to suspect MRSA 11:44 AM 03/30/2025 (Dr. Aric Ventura): I canceled g culture because patient had blood and clot evacuation this was a hematoma and not an abscess Differential Diagnosis Differential Diagnoses: The differential diagnosis associated with the presentation includes (Abscess, hematoma, cellulitis, seroma) Lab Data [facility] Lab Attestation statement: I reviewed the patient's lab results. 03/30/25 08:41 03/30/25 08:41 Labs: Lab Results 03/30/25 Range/Units 08:41 WBC 6.5 (4.8-10.8) X10*3/uL RBC 4.22 (4.20-5.50) X10*6/uL Hgb 12.2 (12.0-16.0) g/dl Hct 37.5 (37.0-47.0) % MCV 88.9 (80.0-98.0) fL MCH 28.9 (27.0-33.0) pg MCHC 32.5 (31.0-35.0) g/dl RDW 14.1 (11.0-16.0) % Plt Count 170 (160-400) X10*3/uL MPV 10.3 (9.4-12.3) fL Immature Gran % (Auto) 0.3 (0.0-0.4) % Neut % (Auto) 74.5 H (45-73) % Lymph % (Auto) 15.2 L (20-40) % [place] % (Auto) 8.8 (2-11) % Eos % (Auto) 0.9 (0-4) % Baso % (Auto) 0.3 (0-2) % Lymph # (Auto) 1.0 L (1.2-4.9) X10*3/uL [place] # (Auto) 0.6 (0.1-1.2) X10*3/uL Eos # (Auto) 0.1 (0.0-0.4) X10*3/uL Baso # (Auto) 0.0 (0.0-0.2) X10*3/uL Abs Immat Gran (auto) 0.02 (0.00-0.03) X10*3/uL Absolute Neuts (auto) 4.9 (2.0-8.3) x10*3/uL Absolute Nucleated RBC 0.000 (0.0-0.012) X10*3/uL Nucleated RBC % (auto) 0.0 (0.0-0.2) /100WBC Sodium 142 (135-145) mmol/L Potassium 3.6 (3.3-5.1) mmol/L Chloride 106 (96-108) mmol/L Carbon Dioxide 27 (22-29) mmol/L Anion Gap 13 (12-20) BUN 9 (9-16) mg/dL Creatinine 0.60 (0.5-1.4) mg/dL Estim Creat Clear Calc 86.4 Estimated GFR > 60 Random Glucose 188 H (60-115) mg/dL Calcium 9.1 D (8.4-10.2) mg/dL Total Bilirubin 0.3 (0.0-1.0) mg/dL AST 35 H (5-31) U/L ALT 34 H (0-31) U/L Alkaline Phosphatase 80 (39-117) U/L Total Protein 7.7 (6.5-8.0) g/dL Albumin 4.3 (3.5-5.0) g/dL Procedures Abscess I/D Site: lower extremity Side (if applicable): left Sedation/analgesia: none Local Anesthetic: lidocaine 1% Amount of anesthesia used (mL): 7 Technique: incised with blade Amount of fluid expressed (mL): 4 Sent for culture/gram staining?: No Irrigation: Yes Packing used?: none Discharge Plan Discharge Clinical Impression: Hematoma of left thigh Patient Disposition: Home, Self-Care Additional Instructions: You did not have an abscess this was a hematoma or collection of blood, this is usually from rubbing or squeezing the area and some kind of traumatic event like that, so I think you were probably trying to squeeze help the pimple that you had and this collected, and so this is not an infection you do not need antibiotics, remove the dressing in the next 12 hours, you may have additional oozing of blood but I will stop and you can use a Band-Aid, you can keep the area clean with soap and water. Do not take any aspirin or ibuprofen Prescriptions: No Action (DME) blood-glucose meter [FreeStyle Lite Meter] Kit See Rx Instructions .ROUTE .MEDSUPPLY Qty: 1 0RF Rx Instructions: three times a day (DME) walker Misc See Rx Instructions .Route Qty: 1 0RF Rx Instructions: As directed (DME) Shower Chair Misc See Rx Instructions .Route Qty: 1 0RF Rx Instructions: As directed (DME) raised toilet seat See Rx Instructions .Route .MEDSUPPLY Qty: 1 0RF Rx Instructions: As directed (DME) adult diapers medium See Rx Instructions .Route .MEDSUPPLY Qty: 120 11RF Rx Instructions: As directed (DME) Ultra-Light Rollator Misc See Rx Instructions .Route Qty: 1 0RF Rx Instructions: As directed (DME) FreeStyle Lite Strips Strip See Rx Instructions .ROUTE .MEDSUPPLY Qty: 300 3RF Rx Instructions: As directed three times a day (DME) non-slip rug for tub See Rx Instructions .Route .MEDSUPPLY Qty: 1 0RF Rx Instructions: As directed (DME) underpads [Bed Underpads] Pad See Rx Instructions .Route Qty: 100 6RF Rx Instructions: As directed (DME) blood pressure monitor Kit See Rx Instructions .Route Qty: 1 0RF Rx Instructions: As directed (DME) incontinence pad, liner, disp Pad See Rx Instructions .Route Qty: 90 11RF Rx Instructions: Use 1 pad three times a day (DME) personal wipes See Rx Instructions .Route .MEDSUPPLY Qty: 300 6RF Rx Instructions: As directed albuterol sulfate 90 mcg/actuation HFA aerosol inhaler 2 puff PO Q4-6H PRN (Reason: shortness of breath or wheezing) Qty: 8.5 0RF cholecalciferol (vitamin D3) 50 mcg (2,000 unit) capsule 50 mcg PO DAILY 90 Days Qty: 90 1RF ibuprofen 800 mg tablet 800 mg PO Q8H PRN (Reason: pain) 30 Days Qty: 90 1RF ezetimibe 10 mg tablet 10 mg PO DAILY Qty: 90 3RF rosuvastatin 40 mg tablet 40 mg PO DAILY Qty: 90 3RF trazodone 100 mg tablet 100 mg PO BEDTIME 90 Days Qty: 90 1RF (DME) bed rail See Rx Instructions .Route .MEDSUPPLY Qty: 1 0RF Rx Instructions: As directed (DME) blood pressure monitor Kit See Rx Instructions .Route Qty: 1 0RF Rx Instructions: As directed ([facility]) handheld showerhead See Rx Instructions .Route .MEDSUPPLY Qty: 1 0RF Rx Instructions: As directed sertraline 100 mg tablet 150 mg PO DAILY Qty: 135 0RF Xigduo XR 2.5-1,000 mg tablet, IR - ER, biphasic 24hr 1 tab PO DAILY 90 Days Qty: 90 1RF lisinopril-hydrochlorothiazide 20-12.5 mg tablet 1 tab PO DAILY 90 Days Qty: 90 1RF clonazepam 0.5 mg tablet 0.5 mg PO DAILY PRN (Reason: anxiety) 30 Days Qty: 30 0RF loratadine 10 mg tablet 10 mg PO DAILY (DME) lancets [FreeStyle Lancets] 28 gauge misc See Rx Instructions .ROUTE .MEDSUPPLY Qty: 300 3RF Rx Instructions: As directed three time a day sennosides [Senna Laxative] 8.6 mg tablet 17.2 mg PO BEDTIME Qty: 60 6RF nystatin 100,000 unit/mL suspension 6 ml PO QID 21 Days Qty: 550 0RF Rx Instructions: swish and swallow famotidine 40 mg tablet 40 mg PO BEDTIME Qty: 90 2RF metoclopramide HCl 10 mg tablet 10 mg PO QID 30 Days Qty: 120 6RF simethicone [Gas Relief (simethicone)] 125 mg tablet,chewable 125 mg PO BID-QID Qty: 120 11RF pantoprazole 40 mg tablet,delayed release (DR/EC) 40 mg PO DAILY Qty: 90 1RF Ubrelvy 100 mg tablet 50 - 100 mg PO ONCE PRN (Reason: migraine headache) 30 Days Qty: 16 3RF Rx Instructions: take at onset of migraine, may repeat in 2hrs alosetron [Lotronex] 0.5 mg tablet 0.5 mg PO .qd Qty: 30 11RF Januvia 25 mg tablet 25 mg PO DAILY Print Language: Romanian
[2025-03-30] MEDS: Lidocaine HCl 1 % 20 ML VIAL 10 ML INFILTRATI (11:16)
[2025-03-30 12:05] VITALS: BP 120/78; PULSE 66; RESP 16; TEMP 36.4; O2SAT 96
== END 2025-03-30 12:06 | disposition home or self-care (01) ==
PROVIDERS: Emergency Provider Emergency Medicine; PCP Internal Medicine
DX: S70.12XA Contusion of left thigh, initial encounter (principal); M79.605 Pain in left leg; E11.9 Type 2 diabetes mellitus without complications; X58.XXXA Exposure to other specified factors, initial encounter; Y93.89 Activity, other specified; Y92.89 Other specified places as the place of occurrence of the external cause; Y99.8 Other external cause status; Z79.899 Other long term (current) drug therapy
CPT/HCPCS: 10140; 36415; 80053; 85025; 99284; J2003

== ENCOUNTER 2025-03-30 12:09 | Outpatient (REF) | payer OTHER, SELFPAY ==
[2025-03-30 12:32] LABS: MANUAL DIFF FLAG NO
[2025-03-30 12:45] LABS: Hematocrit 38.8 % (37.0-47.0); Hemoglobin 12.5 g/dl (12.0-16.0); Imm Gran Abs Auto 0.02 X10*3/uL (0.00-0.03); Imm Gran Pct Auto 0.3 % (0.0-0.4); Lymphocytes Absolute Auto 1.1 X10*3/uL (1.2-4.9); Mean Corpuscular HGB Conc 32.2 g/dl (31.0-35.0); Mean Corpuscular Hemoglobin 28.6 pg (27.0-33.0); Mean Corpuscular Volume 88.8 fL (80.0-98.0); NRBC Abs Auto 0.000 X10*3/uL (0.0-0.012); NRBC Pct Auto 0.0 /100WBC (0.0-0.2); Platelet Count 185 X10*3/uL (160-400); Red Blood Count 4.37 X10*6/uL (4.20-5.50); White Blood Count 7.0 X10*3/uL (4.8-10.8)
[2025-03-30 12:47] LABS: Appearance Urine Cloudy; Glucose Urine UA >=1000 mg/dL (Negative); PH 5.5 (5.0-9.0); Specific Gravity - Urine >= 1.030 (1.005-1.025); UMIC TRIGGER UACC YES
[2025-03-30 12:54] LABS: Hemoglobin A1C 262.8322 umol/L; Total Hemoglobin (HGBA1C) 3334.2032 umol/L
[2025-03-30 13:14] LABS: UACC Culture Trigger YES
[2025-03-30 13:44] LABS: Alanine Aminotransferase 39 U/L (0-31); Albumin Level 4.5 g/dL (3.5-5.0); Alkaline Phosphatase 87 U/L (39-117); Anion Gap 12 (12-20); Aspartate Amino Transferase 41 U/L (5-31); Blood Urea Nitrogen 9 mg/dL (9-16); Calcium 9.5 mg/dL (8.4-10.2); Carbon Dioxide 27 mmol/L (22-29); Chloride 105 mmol/L (96-108); Cholesterol 193 mg/dL (<200); Estimated Glomerular Filt Rate > 60; HDL Cholesterol 65 mg/dL (>40); Potassium 3.8 mmol/L (3.3-5.1); Sodium 140 mmol/L (135-145); Total Protein 8.3 g/dL (6.5-8.0); Triglycerides 132 mg/dL (<150)
[2025-03-30 14:06] LABS: Microalbum/Creatinine Ratio Ur 245.4 ug/mg cr (<30)
[2025-03-30 14:22] LABS: Folate 12.1 ng/mL (> or = 4.0); Vitamin B12 304 pg/mL (200-900)
== END 2025-03-30 12:10 | disposition home or self-care (01) ==
LOC: HO.LAB 12:09
PROVIDERS: PCP Internal Medicine; Visit Provider Internal Medicine
DX: Z00.00 Encounter for general adult medical examination without abnormal findings (principal); E11.65 Type 2 diabetes mellitus with hyperglycemia; E11.42 Type 2 diabetes mellitus with diabetic polyneuropathy; E11.29 Type 2 diabetes mellitus with other diabetic kidney complication; I10 Essential (primary) hypertension; E78.5 Hyperlipidemia, unspecified; R80.9 Proteinuria, unspecified; E55.9 Vitamin D deficiency, unspecified; E53.8 Deficiency of other specified B group vitamins; Z79.4 Long term (current) use of insulin
CPT/HCPCS: 36415; 80053; 80061; 81001; 82043; 82306; 82570; 82607; 82746; 83036; 85025; 87086; 87088; 87186

== ENCOUNTER 2025-04-23 12:46 | Outpatient (AMB) | payer OTHER, SELFPAY ==
--- NOTE | 2025-04-23 12:49 | A.OFFVIS_ITS ---
Vital Signs 3 04/23/25 12:54 Height 5 ft 2 in Weight 162 lb 0.636 oz BMI 29.6 BP 92/64 Blood Pressure Location Lt brachial Position Sitting Pulse 67 Pulse Source Pulse Oximeter Pulse Oximetry (%) 97 Oxygen Delivery Method Room Air Intake Visit Reasons: Type 2 diabetes mellitus with hyperglycemia Intake Note: NEW Patient presents today to establish treatment for Type 2 Diabetes Mellitus: Last Diabetic eye exam was on: Last year, is seen every 2 years Last Podiatry exam was on: Patient does not see a Community Engagement Manager Most recent HbA1c: 9.4%, 03/30/2025 Random Glucose: 220 mg/dL Feed Mill Tender Required: Yes Feed Mill Tender Language: Librarian School Services: Feed Mill Tender Present Feed Mill Tender Name: Dr. Pettit Information Interpreted: non-clinical & clinical Accompanied by: Self / Same As Patient Allergies amoxicillin Allergy (Unknown, Verified 04/23/25 12:55) pruritus penicillin G Allergy (Unknown, Verified 04/23/25 12:55) pruritis duloxetine (From Cymbalta) Adverse Reaction (Intermediate, Verified 04/23/25 12:55) palpitations and sob dulaglutide (Trulicity) Adverse Reaction (Unknown, Verified 04/23/25 12:55) abdominal pain Medication List - Last Reconciled 04/23/25 by Shameka Fowler MD [adult diapers As directed] albuterol sulfate 90 mcg/actuation 2 puffs PO Q4-6H PRN alosetron (Lotronex) 0.5 mg PO .qd [bed rail As directed] blood pressure monitor As directed blood pressure monitor As directed blood sugar diagnostic (FreeStyle Lite Strips) As directed three times a day blood-glucose meter (FreeStyle Lite Meter kit) three times a day blood-glucose sensor (Dexcom G7 Sensor device) As directed for blood glucose monitoring every 10 days blood-glucose,curve saw operator,cont (Dexcom G7 Director It Project) As directed for blood glucose monitoring cholecalciferol (vitamin D3) 50 mcg PO DAILY 90 days clonazepam 0.5 mg PO DAILY PRN 30 days dapaglifloz propaned-metformin 2.5-1,000 mg ER (Xigduo XR) 1 tab PO DAILY 90 days ezetimibe 10 mg PO DAILY famotidine 40 mg PO BEDTIME [handheld showerhead As directed] ibuprofen 800 mg PO Q8H PRN 30 days incontinence pad, liner, disp Use 1 pad three times a day lancets (FreeStyle Lancets) As directed three time a day lisinopril-hydrochlorothiazide 20-12.5 mg 1 tab PO DAILY 90 days loratadine 10 mg PO DAILY metoclopramide HCl 10 mg PO QID 30 days [non-slip rug for tub As directed] nystatin 6 mL PO QID 21 days pantoprazole 40 mg PO DAILY [personal wipes As directed] [raised toilet seat As directed] rosuvastatin 40 mg PO DAILY Held on 10/29/24. Instructions: Doctor's Order sennosides (Senna Laxative) 17.2 mg (2 x 8.6 mg) PO BEDTIME Held on 10/28/24. Instructions: Doctor's Order sertraline 150 mg (1.5 x 100 mg) PO DAILY Shower Chair As directed simethicone (Gas Relief (simethicone)) 125 mg PO BID-QID sitagliptin phosphate (Januvia) 25 mg PO DAILY sulfamethoxazole-trimethoprim 800-160 mg (Bactrim DS) 1 tab PO BID 5 days trazodone 100 mg PO BEDTIME 90 days ubrogepant (Ubrelvy) 50 - 100 mg (0.5 - 1 x 100 mg) PO ONCE PRN 30 days underpads (Bed Underpads) As directed walker As directed walker (Ultra-Light Rollator misc) As directed HPI Comments Details: Patient is 59 yo female with DM type 2, GERD, , HTN, HLD, IBS, depression, insomnia, fibromyalgia, here for continued management of diabetes. She was last seen by Dr. Mcguire on 11/02/2021, after which she was followed by PCP. This is the 1st time that I see the patient. She was sent back to endocrinology for persistent hyperglycemia. Diagnosed at 45 years of age. Current medications: Xigduo XR 11/999 BID, Januvia 100mg. Past medications: Trulicity in the past (causes abdominal pain). Ozempic gives her nausea and headaches/possible pancreatitis Micro and macrovascular complications include hx of TIA, + tingling/numbness feet and hands Symptoms reported: occasional numbness, tingling, cramping in lower extremities Hypoglycemia: denies Diet: eats regular food. Likes eating bread. Drinks juice without sugar. Exercise: walks 20-25 mins, exercises with PT Eye exam: abbasi eye exam last year, has appt for next year. No Hx of DR BG: Measures BG only once/day Weight: Gained 11 lbs in 1 year, especially after Ozempic withdrawal Physical exam: General: Well appearing. NAD. Neck/Thyroid: Thyroid not palpable, no nodules. Eyes: No conjunctival injection, not lid lag or proptosis CV: RRR, no murmur. No edema. Resp:Lungs clear to auscultation bilaterally Abdomen: Soft, nontender. nondistended Extremities/Neuro: No weakness or tremor of outstretched hands Diabetic Foot Exam: decreased sensation in dorsal R foot. Laboratory Tests 03/30/25 12:31 Sodium 140 Potassium 3.8 Creatinine 0.64 Estimated GFR > 60 Hemoglobin A1c % 9.4 H Triglycerides 132 Cholesterol 193 LDL Cholesterol, Calc 102 H HDL Cholesterol 65 25-OH Vitamin D Total 41.4 CGM/BG log: Interpretation: Scarce data showing mild hyperglycemia in the setting of dietary transgressions and occasional forgetting her meds. [facility] Medical History Physical exam Irritable bowel syndrome with diarrhea Constipation Pre-op evaluation Back pain Transaminitis Urinary incontinence Diabetes mellitus Tingling of both feet Bilateral leg and foot pain Lumbosacral strain Depression Insomnia Snoring Hypersomnia Urge urinary incontinence Anxiety and depression Obesity (BMI 30-39.9) Type 2 diabetes mellitus with hyperglycemia Fibromyalgia History of herniated intervertebral disc History of TIA (transient ischemic attack) Osteopenia Allergic rhinitis Migraine aura without headache Osteoarthritis Asthma Type 2 diabetes mellitus with diabetic polyneuropathy Hyperlipidemia LDL goal <70 Vitamin D insufficiency Hypertension Surgical History History of carpal tunnel surgery History of cholecystectomy History of cervical biopsy H/O colonoscopy History of bilateral tubal ligation History of partial hysterectomy History of bladder suspension procedure History of appendectomy Family History Father Kidney failure Diabetes CVD (cardiovascular disease) Hypertension Mother Diabetes Hypertension Social History Housing: House Alcohol intake: never Patient Tobacco Use Status: Never used Tobacco e-Cigarette/Vaping Use: Never Used Second Hand Smoke Exposure: No service: No Current occupational status: retired Cognitive needs: No Hearing needs: No Vision needs: No Physical Exam Vital Signs: Last Vital Signs Pulse 67 04/23/25 12:54 BP 92/64 04/23/25 12:54 Pulse Ox 97 04/23/25 12:54 Oxygen Delivery Method Room Air 04/23/25 12:54 BMI result Body Mass Index 29.6 Office Procedures Glucose Monitoring Details Details: See HPI 40840 - Continuous Glucose Monitoring, patient provides equipment Procedure code (CPT) selection complete Results Reviewed Results Reviewed: Laboratory Last Values Glucose (Clinic) 220 mg/dL (60-115) H 04/23/25 13:02 Assessment & Plan Assessment & Plan (1) Type 2 diabetes mellitus with other diabetic kidney complication: Code(s): E11.29 - Type 2 diabetes mellitus with other diabetic kidney complication Category: Medical Plan 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 Patient also noticed to have significant albuminuria, she is currently take Januvia 25 mg, dapagliflozin 5 mg b.i.d. and lisinopril 20 mg daily. We will try to improve diabetes control, but if he continues to have proteinuria in the next 6 month we will likely change her Januvia to Jardiance. Plan - Continue taking medications as prescribed; do not skip doses. - We will start Lantus 20 units nightly - We will provide a script for CGM - Follow a balanced diet with portion control and carbohydrate moderation. - Engage in regular physical activity (>=50 min/week). - Perform daily foot checks and avoid walking barefoot. - Schedule annual dilated eye exams and urine microalbumin tests. - Stay current with vaccinations. - Know personal targets for A1c, blood pressure, and LDL cholesterol. - Lifestyle counseling on nutrition, physical activity, and weight management. - Consider starting insulin therapy due to current blood sugar levels. Orders: Orders 2 AMB Glucose Monitoring Today E11.29 - Type 2 diabetes mellitus with other diabetic kidney complication Medications: New 2 insulin glargine (Lantus U-100 Insulin) Injecte Lantus 20 unidades en la noche todos los kearney. 20 units (0.2 mL) subcut DAILY 10 mL 3RF E11.29 - Type 2 diabetes mellitus with other diabetic kidney complication blood-glucose,curve saw operator,cont (Dexcom G7 Director It Project) As directed for blood glucose monitoring 1 ea 0RF E11.42 - Type 2 diabetes mellitus with diabetic polyneuropathy, Z79.4 - intermodal customer service (current) use of insulin blood-glucose sensor (Dexcom G7 Sensor device) As directed for blood glucose monitoring every 10 days 3 ea 1RF E11.42 - Type 2 diabetes mellitus with diabetic polyneuropathy, Z79.4 - intermodal customer service (current) use of insulin Refilled 2 blood sugar diagnostic (FreeStyle Lite Strips) As directed three times a day 300 ea 3RF E11.42 - Type 2 diabetes mellitus with diabetic polyneuropathy, E11.65 - Type 2 diabetes mellitus with hyperglycemia, I10 - Essential (primary) hypertension, Z79.4 - intermodal customer service (current) use of insulin Patient Instructions: Continue Xigduo XR 11/999 BID, Januvia 100mg. *NUEVO-Injecte Lantus 20 unidades en la noche todos los kearney. Coding Level of Care Code New Pt Level 5 (01575) Diagnoses Type 2 diabetes mellitus with other diabetic kidney complication E11.29 CPT Codes Details - CPT: 92594 - Continuous Glucose Monitoring, patient provides equipment ([id number]) Time Spent (min) 65 Comment Time spent on review of previous records, history, exam/plan and patient education.
[2025-04-23 12:54] VITALS: BP 92/64; PULSE 67; O2SAT 97; BMI 29.6
[2025-04-23 13:06] LABS: Glucose, Whole Blood 220 mg/dL (60-115)
== END 2025-04-23 14:10 | disposition home or self-care (01) ==
LOC: HO.ENCR 12:47
PROVIDERS: PCP Internal Medicine; Visit Provider Student in an Organized Health Care Education/Training Program
DX: E11.29 Type 2 diabetes mellitus with other diabetic kidney complication (principal)
CPT/HCPCS: 99205

== ENCOUNTER → 2025-04-23 12:46 | Outpatient (BNVA) | payer OTHER, SELFPAY | PROVIDERS: PCP Internal Medicine; Visit Provider Student in an Organized Health Care Education/Training Program | DX: E11.29 Type 2 diabetes mellitus with other diabetic kidney complication (principal) | CPT/HCPCS: 82947; 95249; 99202 ==

== ENCOUNTER 2025-04-29 13:26 | Outpatient (REF) | payer OTHER, SELFPAY ==
[2025-04-29 15:49] LABS: Appearance Urine Clear; Glucose Urine UA >=1000 mg/dL (Negative); PH 5.5 (5.0-9.0); Specific Gravity - Urine >= 1.030 (1.005-1.025); UMIC TRIGGER UACC YES
[2025-04-29 15:57] LABS: UACC Culture Trigger YES
[2025-04-29 16:51] LABS: Alanine Aminotransferase 29 U/L (0-31); Albumin Level 4.7 g/dL (3.5-5.0); Alkaline Phosphatase 69 U/L (39-117); Amylase 76 U/L (28-100); Anion Gap 12 (12-20); Aspartate Amino Transferase 27 U/L (5-31); Blood Urea Nitrogen 20 mg/dL (9-16); Calcium 10.0 mg/dL (8.4-10.2); Carbon Dioxide 29 mmol/L (22-29); Chloride 104 mmol/L (96-108); Cholesterol 124 mg/dL (<200); Estimated Glomerular Filt Rate > 60; HDL Cholesterol 56 mg/dL (>40); Lipase 71 U/L (8-78); Potassium 4.4 mmol/L (3.3-5.1); Sodium 141 mmol/L (135-145); Total Protein 8.1 g/dL (6.5-8.0); Triglycerides 83 mg/dL (<150)
== END 2025-04-29 13:27 | disposition home or self-care (01) ==
LOC: HO.LAB 13:26
PROVIDERS: PCP Internal Medicine; Visit Provider Nurse Practitioner
DX: Z00.00 Encounter for general adult medical examination without abnormal findings (principal); K21.9 Gastro-esophageal reflux disease without esophagitis; K31.84 Gastroparesis; R74.8 Abnormal levels of other serum enzymes; I10 Essential (primary) hypertension; E55.9 Vitamin D deficiency, unspecified; E11.29 Type 2 diabetes mellitus with other diabetic kidney complication; E11.42 Type 2 diabetes mellitus with diabetic polyneuropathy; Z79.4 Long term (current) use of insulin
CPT/HCPCS: 36415; 80053; 80061; 81001; 82150; 82306; 83690; 84443; 87086; 87088; 87186; 99212

== ENCOUNTER 2025-04-29 13:26 | Outpatient (AMB) | payer OTHER, SELFPAY ==
--- NOTE | 2025-04-29 13:50 | MHC.OFFVIS ---
Vital Signs 04/29/25 14:04 Height 5 ft 2 in Weight 163 lb 2.273 oz BMI 29.8 Intake Visit Reasons: Follow up abd pain Intake Note: Patient in office today in follow up of labs and abd pain. CC: Patient reports doing well from abd pain. Allergies amoxicillin Allergy (Unknown, Verified 04/29/25 14:05) pruritus penicillin G Allergy (Unknown, Verified 04/29/25 14:05) pruritis duloxetine (From Cymbalta) Adverse Reaction (Intermediate, Verified 04/29/25 14:05) palpitations and sob dulaglutide (Trulicity) Adverse Reaction (Unknown, Verified 04/29/25 14:05) abdominal pain HPI HPI Follow up abd pain: Details: Assessment & Plan (1) Irritable bowel syndrome with diarrhea: Comment: diarrhea more dominant, but at times becomes constipated, Pattern varies. Will trial Senna prn constipation and daily fiber supplement. Bentyl on diarrhea/ cramping days. Has an element of post cholecystectomy syndrome Code(s): K58.0 - Irritable bowel syndrome with diarrhea Category: Medical (2) Upper abdominal pain: Code(s): R10.10 - Upper abdominal pain, unspecified Category: Medical (3) Elevated lipase: Code(s): R74.8 - Abnormal levels of other serum enzymes Category: Medical Plan [place] #V LIve She has had no change in sx since adjusting her Lotronex down from bid to qd. She still is having CIC. I want her to stop the medicine and get her bowels moving to see if this effects the pain. She is agreeable. Maybe qod depending. (pain:just below the ribs and is spreading across the upper abdomen. Before it was more towards the periumbilical area and to the left. MRI did not show any pancreatic problems, but she has had triple digit elevated lipases since starting Ozempic about the beginning of this years for her diabetes. This was rx'ed by her PCP, but she will be seeing her chronic disease epidemiologist soon. The Ozempic could be the cause of the pain and of the CIC. Signs and symptoms of severe pancreatitis that would necessitate presentation to the ER also review since this can be precipitated by Ozempic use. I encouraged her to discuss this with endocrine and her primary care provider given her triple digit pancreatic enzymes. ROV 3 weeks. Orders: Orders Lipase 02/13/25 R74.8 - Abnormal levels of other serum enzymes, R10.10 - Upper abdominal pain, unspecified, K58.0 - Irritable bowel syndrome with diarrhea TSH reflex Free T4 02/13/25 R74.8 - Abnormal levels of other serum enzymes, R10.10 - Upper abdominal pain, unspecified, K58.0 - Irritable bowel syndrome with diarrhea Amylase 02/13/25 R74.8 - Abnormal levels of other serum enzymes, R10.10 - Upper abdominal pain, unspecified, K58.0 - Irritable bowel syndrome with diarrhea Medications: Discontinued semaglutide for 4 weeks Discontinued Reason: Patient Completed Course 0.25 mg (0.368 mL) subcut QWEEK 4 weeks 1.472 mL 1RF E11.65 - Type 2 diabetes mellitus with hyperglycemia, 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 LABS Laboratory Tests 02/13/25 14:13 Amylase 274 H Lipase 499 H TSH 3.40 TODAYS VISIT [place] #Clarita Mar [facility] Medical History Physical exam Irritable bowel syndrome with diarrhea Constipation Pre-op evaluation Back pain Transaminitis Urinary incontinence Diabetes mellitus Tingling of both feet Bilateral leg and foot pain Lumbosacral strain Depression Insomnia Snoring Hypersomnia Urge urinary incontinence Anxiety and depression Obesity (BMI 30-39.9) Type 2 diabetes mellitus with hyperglycemia Fibromyalgia History of herniated intervertebral disc History of TIA (transient ischemic attack) Osteopenia Allergic rhinitis Migraine aura without headache Osteoarthritis Asthma Type 2 diabetes mellitus with diabetic polyneuropathy Hyperlipidemia LDL goal <70 Vitamin D insufficiency Hypertension Surgical History History of carpal tunnel surgery History of cholecystectomy History of cervical biopsy H/O colonoscopy History of bilateral tubal ligation History of partial hysterectomy History of bladder suspension procedure History of appendectomy Family History Father Kidney failure Diabetes CVD (cardiovascular disease) Hypertension Mother Diabetes Hypertension Social History Housing: House Alcohol intake: never Patient Tobacco Use Status: Never used Tobacco e-Cigarette/Vaping Use: Never Used Second Hand Smoke Exposure: No service: No Current occupational status: retired Cognitive needs: No Hearing needs: No Vision needs: No Review of Systems Const Denies fatigue, Denies fever(s), Denies night sweats, Denies poor appetite and Denies weight loss ENT Reports Normal hearing present, Denies dental pain, Denies dysphagia, Denies hearing loss, Denies mouth pain, Denies odynophagia, Denies throat swelling, Denies tongue swelling and Reports other (Dentition adequate) Card Reports no additional complaints Resp Reports no additional complaints GI Details: Denies abdominal pain, Denies melena, Denies bloating, Denies hematochezia, Reports constipation, Denies GI cramping, Denies dysphagia, Denies excessive flatus, Denies early satiety, Reports heartburn, Denies diarrhea, Reports loose stools, Reports nausea, Denies odynophagia, Denies vomiting and Denies hematemesis Skin/Breast Denies pruritus, Denies lesions, Denies rash and Denies jaundice Neuro Reports Normal hearing present and Denies Abnormal speech present Endo Denies fatigue Aller/Immun Denies throat swelling and Denies tongue swelling Physical Exam Vital Signs: BMI result Body Mass Index 29.8 Const General: cooperative, no acute distress, well developed and well groomed Nutritional Appearance: well nourished and obese Orientation/consciousness: oriented to person, oriented to place and oriented to time Limitations: language barrier HEENT Head: Yes normocephalic and Yes atraumatic Eyes General: appearance normal, both eyes and all related structures Pupils: Equal, round and reactive pupils present Neck Neck: Yes normal visual inspection and Yes no lymphadenopathy Thyroid: Thyroid normal Resp Effort & Inspection: normal respiratory effort and able to speak in complete sentences Auscultation: clear to auscultation bilaterally Cardio Rate: regular rate Rhythm: regular rhythm Heart sounds: Normal, physiologic split S2 sound present Peripheral pulses: radial pulses present and posterior tibial pulses present GI Inspection: No distended, Yes Abdominal panniculus present and Yes obesity Palpation (GI): Soft to palpation, nontender, no guarding, not rigid and No hepatosplenomegaly present Percussion: Yes normal to percussion Auscultation: normal bowel sounds Rectal Exam - Female: deferred Skin General skin exam: no rashes or lesions noted, turgor normal, skin not dry, no jaundice, No spider nevi and no striae Rashes: no rashes Nails: normal Neuro General: oriented to person, oriented to place and oriented to time Cranial nerves: Yes Equal, round and reactive pupils present and Yes Normal hearing present Speech: No Abnormal speech present Extrem General: Yes normal to inspection, No clubbing, No cyanosis and No edema Psych Appearance: grossly normal and well kempt Mental Status: mental status grossly normal Speech and movement: Normal speech and movement present Affect: normal affect Attitude: cooperative Thought process: Normal thought process present and not confabulating Thought content: Normal thought content present Insight: Fair insight present (Psych) Judgement: Fair judgement present (Psych) Assessment & Plan Assessment & Plan (1) Elevated amylase and lipase: Code(s): R74.8 - Abnormal levels of other serum enzymes Category: Medical Plan - The patient is a 64-year-old female presenting for follow-up after a medication-induced pancreatic enzyme elevation. This was discovered because she was presenting with abdominal pain and severe nausea and vomiting. She is also managed here for chronic GERD, gastroparesis, I am IBS-D. - Ozempic was discontinued due to elevated pancreatic enzyme levels, with an improvement in symptoms following cessation. Her pancreatic enzymes were triple digit, so unfortunately it seems that her body will not tolerate Ozempic even though it is very good diabetic medication. - Lantus insulin was prescribed to assist in managing blood glucose levels; her previous A1c was greater than 9 so clearly they needed to start another pharmacotherapy therapeutic approach. She also has an upcoming evaluation with endocrinology. - Constipation improved post-medication cessation, with regular bowel movements and decreased pain severity, although occasional nausea persists. - Previous management for diarrhea with Lotronex was halted due to resulting constipation. - The patient uses Januvia, Lantus insulin and another medication stated as Xigduo for sugar management. - Planned redraw of pancreatic enzyme levels to assess normalization post-Ozempic cessation. Return office visit in 4 months Orders: Orders Amylase Today R74.8 - Abnormal levels of other serum enzymes Lipase Today R74.8 - Abnormal levels of other serum enzymes Medications: Refilled famotidine 40 mg PO BEDTIME 90 tabs 2RF K21.9 - Gastro-esophageal reflux disease without esophagitis pantoprazole 40 mg PO DAILY 90 tabs 1RF K21.9 - Gastro-esophageal reflux disease without esophagitis metoclopramide HCl 10 mg PO QID 120 tabs 6RF 30 days K31.84 - Gastroparesis simethicone (Gas Relief (simethicone)) 125 mg PO BID-QID 120 tabs 11RF abdominal distention On Hold alosetron (Lotronex) Hold Comment: Doctor's Order 0.5 mg PO .qd 30 tabs 11RF K58.0 - Irritable bowel syndrome with diarrhea Coding Level of Care Code Est Pt Level 3 (10870) Diagnoses Elevated amylase and lipase R74.8
[2025-04-29 14:04] VITALS: BMI 29.8
== END 2025-04-29 14:27 | disposition home or self-care (01) ==
LOC: HO.HGI 13:27
PROVIDERS: PCP Internal Medicine; Visit Provider Nurse Practitioner
DX: R74.8 Abnormal levels of other serum enzymes (principal)
CPT/HCPCS: 99213

== ENCOUNTER 2025-05-29 11:26 | Outpatient (REF) | payer OTHER, SELFPAY ==
--- NOTE | ~2025-05-29 | MM_ITS ---
EXAMINATION: DXA BONE DENSITY AXIAL HISTORY: ASYMPTOMATIC MENOPASUAL STATE TECHNIQUE: [employer] Dual energy absorptiometry (DEXA) of the lumbar spine, total left hip, and femoral neck was performed. COMPARISON: Comparison is made with the prior examination dated June 2013. FINDINGS: The bone mineral density of the lumbar spine is 1.170 g/cm2, corresponding to a T-score of -0.1, and a Z-score of 1.3. This is indicative of normal bone mineral density. This represents a BMD change of -11% compared to the prior exam. This is statistically significant. The bone mineral density of the left total hip is 0.925 g/cm2, corresponding to a T-score of -0.7, and a Z-score of 0.4. This is indicative of normal bone mineral density. This represents a BMD change of -8.7% compared to the prior exam. This is statistically significant. The bone mineral density of the left femoral neck is 0.841 g/cm2, corresponding to a T-score of -1.4, and a Z-score of -0.1. This is indicative of osteopenia. This represents a BMD change of -11.9% compared to the prior exam. This is statistically significant. FRACTURE RISK: The FRAX index suggests a ten year probability of major osteoporotic fracture of 5%, and of hip fracture 0.5%. MM/XR DEXA axial skeleton IMPRESSION: Based on bone mineral density, and according to World Health Organization (WHO) criteria, the diagnosis is consistent with osteopenia based on lowest T score of -1.4 in the left femoral neck. Bone mineral density is decreased compared to prior 2013 exam. Treatment Recommendations: NOF guidelines recommend consideration for treatment in postmenopausal women and men age 50 and older presenting with the following: -A hip or vertebral (clinical or morphometric) fracture. -T-score less than or equal to -2.5 at the femoral neck or spine after appropriate evaluation to exclude secondary causes. -Low bone mass at the hip or spine and a 10-year fracture probability by FRAX of greater than or equal to 3% for hip fracture or greater than or equal to 20% for major osteoporotic fracture based on the [place] adapted WHO algorithm. Other Recommendations: All treatment decisions require clinical judgment and consideration of individual patient factors, including patient preferences, comorbidities, previous drug use, risk factors not captured in the FRAX model (e.g. frailty, falls, vitamin D deficiency, increased bone turnover, interval significant decline in bone density) and possible under or overestimation of fracture risk by FRAX. Additional medical evaluation for secondary cause of low bone mineral density may be appropriate. FUTURE SCAN RECOMMENDATION: People with diagnosed cases of osteoporosis or at high risk for fracture should have regular bone mineral density tests. For patients eligible for Medicare, routine testing is allowed once every 2 years. The testing frequency can be increased to one year for patients who have rapidly progressing disease, those who are receiving or discontinuing medical therapy to restore bone mass, or have additional risk factors. Statistically, 68% of repeat scans fall within 1 SD (+/- 0.010 g/cm2 for AP spine L1-L4) and 1 SD (+/- 0.012 g/cm2 for femur total) FRAX is a trademark of the [employer], a World Health Organization (WHO) Collaborating Center. Electronically signed by: Carey Patton MD 05/29/2025 04:27 PM [facility]
== END 2025-05-29 11:27 | disposition home or self-care (01) ==
LOC: HO.MAMMO 11:26
PROVIDERS: PCP Internal Medicine; Visit Provider Internal Medicine
DX: Z13.820 Encounter for screening for osteoporosis (principal); Z78.0 Asymptomatic menopausal state; Z23 Encounter for immunization
CPT/HCPCS: 77080; 90471; 90656

== ENCOUNTER → 2025-05-29 11:30 | Outpatient (BNV) | payer OTHER, SELFPAY | PROVIDERS: PCP Internal Medicine; Visit Provider Radiology Diagnostic Radiology | DX: E28.39 Other primary ovarian failure (principal) | CPT/HCPCS: 77080 ==

== ENCOUNTER 2025-05-29 11:44 | Outpatient (AMB) | payer OTHER, SELFPAY ==
--- NOTE | 2025-05-29 11:50 | AM.OFFVISNUR ---
Intake Visit Reasons: flu shot Allergies amoxicillin Allergy (Unknown, Verified 04/29/25 14:05) pruritus penicillin G Allergy (Unknown, Verified 04/29/25 14:05) pruritis duloxetine (From Cymbalta) Adverse Reaction (Intermediate, Verified 04/29/25 14:05) palpitations and sob dulaglutide (Trulicity) Adverse Reaction (Unknown, Verified 04/29/25 14:05) abdominal pain Office Procedures Flu Questionnaire Does the patient have a severe egg allergy?: No Does the patient have severe life threatening allergies?: No Does the patient have a fever or illness today?: No Has the patient ever had Guillain-Houston Syndrome?: No Has the patient ever had any past reaction to a flu shot?: No Immunizations Fluarix [id number] (PF) 45 mcg (15 mcg x 3)/0.5 mL IM syringe Performing Provider: Jess Garza MD [facility] [place] [facility] Administered by: Yaneth Araujo RN on 05/29/25 11:50 Dose Route Admin Location Dispensed Lot Number Expiration Date LAC Veterinary Surgery Technologist 0.5 mL IM Left Deltoid 0.5 mL [id number] 01/12/26 [id number] [employer] VIS Given Date VIS Provided VIS Publication Date 05/29/25 Single Vaccine 24 Eligibility Eligibility Date Funding Source Not [facility] Eligible 05/29/25 Private Assessment & Plan Assessment & Plan Orders: Orders Influenza [id number] Immunization Today Z23 - Encounter for immunization Coding
== END 2025-05-29 12:00 | disposition home or self-care (01) ==
LOC: HO.HMCH 11:44
PROVIDERS: PCP Internal Medicine; Visit Provider Internal Medicine
DX: Z23 Encounter for immunization (principal)

== ENCOUNTER 2025-06-08 14:41 | Outpatient (AMB) | payer OTHER, SELFPAY ==
--- NOTE | 2025-06-08 14:56 | MHC.PC.OV ---
Vital Signs 06/08/25 14:57 Height 5 ft 2 in Weight 162 lb BMI 29.6 BP 140/62 H Blood Pressure Location Lt brachial Position Sitting Respiration 18 Pulse 76 Pulse Source Pulse Oximeter Temp Source Temporal Artery Scan Pulse Oximetry (%) 99 Oxygen Delivery Method Room Air Intake Visit Reasons: dm Underwriting Consultant Required: No Accompanied by: Self / Same As Patient Allergies amoxicillin Allergy (Unknown, Verified 06/08/25 15:46) pruritus penicillin G Allergy (Unknown, Verified 06/08/25 15:46) pruritis duloxetine (From Cymbalta) Adverse Reaction (Intermediate, Verified 06/08/25 15:46) palpitations and sob dulaglutide (Trulicity) Adverse Reaction (Unknown, Verified 06/08/25 15:46) abdominal pain Medication List - Last Reconciled 06/08/25 by Jess Garza MD [adult diapers As directed] albuterol sulfate 90 mcg/actuation 2 puffs PO Q4-6H PRN alosetron (Lotronex) 0.5 mg PO .qd Held on 04/29/25. Instructions: Doctor's Order [bed rail As directed] blood pressure monitor As directed blood pressure monitor As directed blood sugar diagnostic (FreeStyle Lite Strips) As directed three times a day blood-glucose meter (FreeStyle Lite Meter kit) three times a day blood-glucose sensor (DexLeostream G7 Sensor device) As directed for blood glucose monitoring every 10 days blood-glucose,mushroom farmer,cont (Dexcom G7 Pedigree Researcher) As directed for blood glucose monitoring cholecalciferol (vitamin D3) 50 mcg PO DAILY 90 days clonazepam 0.5 mg PO DAILY PRN 30 days dapaglifloz propaned-metformin 2.5-1,000 mg ER (Xigduo XR) 1 tab PO DAILY 90 days ezetimibe 10 mg PO DAILY famotidine 40 mg PO BEDTIME [handheld showerhead As directed] ibuprofen 800 mg PO Q8H PRN 30 days incontinence pad, liner, disp Use 1 pad three times a day insulin glargine (Lantus Solostar U-100 Insulin) 20 units (0.2 mL) subcut QAM lancets (FreeStyle Lancets) As directed three time a day lisinopril-hydrochlorothiazide 20-12.5 mg 1 tab PO DAILY 90 days loratadine 10 mg PO DAILY metoclopramide HCl 10 mg PO QID 30 days [non-slip rug for tub As directed] pantoprazole 40 mg PO DAILY pen needle, diabetic (Easy Comfort Pen [place]) As directed- daily with Lantus [personal wipes As directed] [raised toilet seat As directed] rosuvastatin 40 mg PO DAILY Held on 10/29/24. Instructions: Doctor's Order sennosides (Senna Laxative) 17.2 mg (2 x 8.6 mg) PO BEDTIME Held on 10/28/24. Instructions: Doctor's Order sertraline 150 mg (1.5 x 100 mg) PO DAILY Shower Chair As directed simethicone (Gas Relief (simethicone)) 125 mg PO BID-QID sitagliptin phosphate (Januvia) 25 mg PO DAILY sulfamethoxazole-trimethoprim 800-160 mg (Bactrim DS) 1 tab PO Q12H 7 days trazodone 100 mg PO BEDTIME 90 days ubrogepant (Ubrelvy) 50 - 100 mg (0.5 - 1 x 100 mg) PO ONCE PRN 30 days underpads (Bed Underpads) As directed walker As directed walker (Ultra-Light Rollator misc) As directed Tobacco use date assessed: 06/08/25 Fall risk assessment: 1 Fall in past year Last assessed Fall Risk: 06/08/25 Dental Screening Dental Screen Date: 06/08/25 Did you have a dental visit in the last 12 months?: Yes Did you have a dental problem in the last 6 months where you did not have access to dental care?: No Was dental information given to patient?: Patient has dentist HPI HPI Comments History of Present Illness Details The patient is a 64 year old individual presenting for management of chronic conditions and possible infection. The patient reports that their blood sugar has been poorly controlled. The patient notes that the pharmacy did not provide Januvia, and reports that their blood sugar was better controlled when taking it with another medication. The patient uses a CGM sensor and recently had to change it. The patient has a history of anxiety and depression, taking clonazepam and sertraline, respectively. There is a history of urinary incontinence, for which the patient uses diapers, and the patient has an inhaler. The patient has known allergies to amoxicillin and penicillin, and experienced palpitations with Cymbalta and abdominal pain with Trulicity. Currently, the patient reports feeling hot. The last complete lab work was in April, which showed a blood sugar of 215 and good renal function. [facility] Medical History (Updated 06/08/25 @ 16:09 by Jess Garza MD) Physical exam Irritable bowel syndrome with diarrhea Constipation Pre-op evaluation Back pain Transaminitis Urinary incontinence Diabetes mellitus Tingling of both feet Bilateral leg and foot pain Lumbosacral strain Depression Insomnia Snoring Hypersomnia Urge urinary incontinence Anxiety and depression Obesity (BMI 30-39.9) Type 2 diabetes mellitus with hyperglycemia Fibromyalgia History of herniated intervertebral disc History of TIA (transient ischemic attack) Osteopenia Allergic rhinitis Migraine aura without headache Osteoarthritis Asthma Type 2 diabetes mellitus with diabetic polyneuropathy Hyperlipidemia LDL goal <70 Vitamin D insufficiency Hypertension Surgical History History of carpal tunnel surgery History of cholecystectomy History of cervical biopsy H/O colonoscopy History of bilateral tubal ligation History of partial hysterectomy History of bladder suspension procedure History of appendectomy Family History Father Kidney failure Diabetes CVD (cardiovascular disease) Hypertension Mother Diabetes Hypertension Social History Housing: House Alcohol intake: never Patient Tobacco Use Status: Never used Tobacco e-Cigarette/Vaping Use: Never Used Second Hand Smoke Exposure: No service: No Current occupational status: retired Cognitive needs: No Hearing needs: No Vision needs: No Questionnaire PHQ-9 Over the last 2 weeks, how often have you been bothered by any of the following problems? 1. Little interest or pleasure in doing things: not at all 2. Feeling down, depressed, or hopeless: not at all 3. Trouble falling or staying asleep, or sleeping too much: more than half the days 4. Feeling tired or having little energy: not at all 5. Poor appetite or overeating: not at all 6. Feeling bad about yourself - or that you are a failure or have let yourself or your family down: not at all 7. Trouble concentrating on things, such as reading the newspaper or watching television: not at all 8. Moving or speaking so slowly that other people could have noticed. Or the opposite - being so fidgety or restless that you have been moving around a lot more than usual: not at all 9. Thoughts that you would be better off or of hurting yourself in some way: not at all Total score: 2 Depression Screening Interpretation: Positive Depression Screening Follow-up: Existing condition and Follow-up Visit Requested Depression Screening Done: Yes 80377 - PHQ-9 Billing: Yes Source: Developed by Drs. Agustin Caraballo, Annabella Dumont, Frank Means and colleagues, with an educational flash from [employer]. Thrive Questionnaire Date Thrive assessed: 06/08/25 I am a: Patient What is your living situation today?: I choose not to answer this question Within the past 12 months, did the food you bought not last and you didn't have the money to get more?: I choose not to answer this question Within the past 12 months, did you worry whether your food would run out before you got money to buy more?: I choose not to answer this question Do you have trouble paying for medicines?: No Do you have trouble getting transportation to medical appointments?: No Do you have trouble paying your heating and electricity bill?: No Do you have trouble taking care of your child, family member or friend?: No Do you have trouble with day-to-day activities such as bathing, preparing meals, shopping, managing finances, etc.?: No Are you currently unemployed and looking for a job?: No Are you interested in more education?: No Please select the resources that you would like help with: None Currently or been in a relationship where the following occur: I choose not to answer THRIVE Score: 0 AUDIT C Alcohol Use Questionnaire (AUDIT-C) 1. How often do you have a drink containing alcohol?: Never 3. How often do you have six or more drinks on one occasion?: Never Total Score: 0 Score Reviewed/Action Taken: No AMBROCIO-7 AMB Questionnaire AMBROCIO-7 Date AMBROCIO - 7 assessed: 10/29/24 Feeling nervous, anxious, or on edge: 0 = Not at all Not being able to stop or control worryin = Not at all Worrying too much about different things: 0 = Not at all Trouble relaxin = Not at all Being so restless that it is hard to sit still: 0 = Not at all Becoming easily annoyed or irritable: 0 = Not at all Feeling afraid as if something awful might happen: 0 = Not at all Total AMBROCIO-7 score (0-4 normal; 5-9 mild; 10-14 moderate; 15-21 severe): 0 Source: Developed by Drs. Agustin Caraballo, Annabella Dumont, Frank Means and colleagues, with an educational flash from [employer]. AMBROCIO-7 Assessment Billing AMBROCIO-7 Assessment Tool: AMBROCIO-7 Assessment 90106 Review of Systems Const All systems reviewed & are unremarkable except as noted in HPI and below Card Denies chest pain at rest, Denies chest pain with activity, Denies edema, Denies irregular heart rhythm, Denies claudication, Denies dyspnea, Denies dyspnea on exertion, Denies orthopnea, Denies paroxysmal nocturnal dyspnea and Denies slow heart rate Resp Denies cough, Denies dyspnea and Denies dyspnea on exertion GI Denies abdominal pain, Denies change in bowel habits, Denies excessive flatus, Denies nausea and Denies vomiting Denies urinary incontinence, Denies urinary hesitancy and Denies urinary urgency Musc Denies atrophy, Denies deformity and Denies limited range of motion Skin/Breast Denies bleeding lesions, Denies changing lesions and Denies rash Physical exam (Primary Care) Vital Signs: Last Vital Signs Pulse 76 06/08/25 14:57 Resp 18 06/08/25 14:57 BP 140/62 H 06/08/25 14:57 Pulse Ox 99 06/08/25 14:57 Oxygen Delivery Method Room Air 06/08/25 14:57 BMI result Body Mass Index 29.6 Tobacco/Smoking Status: Tobacco use Status Tobacco use date assessed 06/08/25 06/08/25 14:59 Patient Tobacco Use Status Never used Tobacco 06/08/25 14:59 Tobacco use type 04/28/25 11:47 e-Cigarette/Vaping Use Never Used 06/08/25 14:59 PHQ-9: PHQ-9 Score PHQ-9: Total score 2 06/08/25 14:59 Depression Screening Interpretation: Positive Depression Screening Follow-up: Existing condition and Follow-up Visit Requested Thrive Assessment: Date of Thrive Assessment Date Thrive assessed 06/08/25 06/08/25 14:59 Currently or been in a relationship where the following occur: I choose not to answer Resp Effort & Inspection: normal respiratory effort Auscultation: clear to auscultation bilaterally Cardio Jugular venous distension: no JVD Rate: regular rate Rhythm: regular rhythm Heart sounds: S1 normal heart sound present and S2 normal heart sound present Extrem General: Yes full ROM Coding Level of Care Code Complex visit Add On G2211 Diagnoses Mild recurrent major depression F33.0 Essential hypertension I10 Hypertension type: essential hypertension Hyperlipidemia LDL goal <70 E78.5 Type 2 diabetes mellitus with hyperglycemia, with long-term current use of insulin E11.65; Z79.4 Diabetes mellitus halfway insulin use: with halfway use Urge urinary incontinence N39.41 Cellulitis L03.90 Additional Codes PHQ-9 - 19975 - PHQ-9 Billing: Yes ([id number]) AMBROCIO-7 Assessment Billing - AMBROCIO-7 Assessment Tool: AMBROCIO-7 Assessment 48881 ([id number]) Time Spent (min) 22 Assessment & Plan Assessment & Plan (1) Mild recurrent major depression: Code(s): F33.0 - Major depressive disorder, recurrent, mild Category: Medical (2) Hypertension: Code(s): I10 - Essential (primary) hypertension Category: Medical Qualifiers: Hypertension type: essential hypertension Qualified Code(s): I10 - Essential (primary) hypertension (3) Hyperlipidemia LDL goal <70: Code(s): E78.5 - Hyperlipidemia, unspecified Category: Medical (4) Type 2 diabetes mellitus with hyperglycemia: Code(s): E11.65 - Type 2 diabetes mellitus with hyperglycemia Category: Medical Qualifiers: Diabetes mellitus halfway insulin use: with halfway use Qualified Code(s): E11.65 - Type 2 diabetes mellitus with hyperglycemia; Z79.4 - correction (current) use of insulin (5) Urge urinary incontinence: Code(s): N39.41 - Urge incontinence Category: Medical (6) Cellulitis: Code(s): L03.90 - Cellulitis, unspecified Category: Medical Plan Plan 1. Type 2 Diabetes Mellitus The patient's diabetes is currently poorly controlled, with a recent blood glucose of 215. The patient reported not receiving Januvia from the pharmacy, a medication which previously provided good glycemic control. A prescription for Januvia will be sent to the pharmacy. 2. Cellulitis The patient reports feeling hot, and there is concern for a possible infection, potentially related to the reported reuse of injection needles. An antibiotic will be prescribed. The patient was informed that while a potential interaction with lisinopril may be flagged by the pharmacy, it is safe to take the medication. 3. Hypertension The patient's blood pressure is elevated at 140/62 mmHg. Continue current management. 4. Anxiety And Depression The patient takes clonazepam for anxiety and sertraline for depression. Continue current medications as prescribed. 5. Urinary Incontinence The patient uses diapers for urinary incontinence. Continue current management strategies. Medications: Changed From sitagliptin phosphate (Januvia) 25 mg PO DAILY To sitagliptin phosphate (Januvia) 25 mg PO DAILY 90 tabs 1RF 90 days From insulin glargine (Lantus Solostar U-100 Insulin) Injecte Lantus 20 unidades en la noche todos los [place]. 20 units (0.2 mL) subcut QAM 15 mL 3RF E11.42 - Type 2 diabetes mellitus with diabetic polyneuropathy, Z79.4 - correction (current) use of insulin To insulin glargine (Lantus Solostar U-100 Insulin) Injecte Lantus 20 unidades en la noche todos los [place]. 25 units (0.25 mL) subcut QAM 15 mL 3RF E11.42 - Type 2 diabetes mellitus with diabetic polyneuropathy, Z79.4 - extermination supervisor (current) use of insulin Refilled pen needle, diabetic (Easy Comfort Pen [place]) As directed- daily with Lantus 100 ea 3RF E11.42 - Type 2 diabetes mellitus with diabetic polyneuropathy, Z79.4 - correction (current) use of insulin sulfamethoxazole-trimethoprim 800-160 mg (Bactrim DS) 1 tab PO Q12H 14 tabs 0RF 7 days B96.89 - Other specified bacterial agents as the cause of diseases classified elsewhere, N39.0 - Urinary tract infection, site not specified
[2025-06-08 14:57] VITALS: BP 140/62; PULSE 76; RESP 18; O2SAT 99; BMI 29.6
== END 2025-06-08 16:05 | disposition home or self-care (01) ==
LOC: HO.HMCH 14:42
PROVIDERS: PCP Internal Medicine; Visit Provider Internal Medicine
DX: I10 Essential (primary) hypertension (principal); F33.0 Major depressive disorder, recurrent, mild; E11.65 Type 2 diabetes mellitus with hyperglycemia; Z79.4 Long term (current) use of insulin; E78.5 Hyperlipidemia, unspecified; N39.41 Urge incontinence; L03.90 Cellulitis, unspecified

== ENCOUNTER → 2025-06-08 14:41 | Outpatient (BNVA) | payer OTHER, SELFPAY | PROVIDERS: PCP Internal Medicine; Visit Provider Internal Medicine | DX: F33.0 Major depressive disorder, recurrent, mild (principal); F41.9 Anxiety disorder, unspecified; I10 Essential (primary) hypertension; E78.5 Hyperlipidemia, unspecified; E11.65 Type 2 diabetes mellitus with hyperglycemia; N39.41 Urge incontinence; L03.90 Cellulitis, unspecified; Z79.4 Long term (current) use of insulin | CPT/HCPCS: 96127; 99212 ==